=== PATIENT | female | born 1980 | race Caucasian/White ===

== ENCOUNTER 2018-07-15 10:12 | Outpatient (CLI) | payer OTHER, SELFPAY ==
[2018-07-15 10:41] LABS: HCT 41.2 % (36.0-46.0); HGB 13.1 g/dL (12.0-15.5); Mean Corp. HGB Concentration 31.8 g/dL (32.0-36.0); Mean Corpuscular Hemoglobin 28.8 pg (27.0-33.0); Mean Corpuscular Volume 90.5 fL (80-95); Platelet Count 319 x1000/uL (130-400); RBC 4.55 m/cumm (4.00-5.20); RBC Distribution Width 15.2 % (11.7-14.6); White Blood Cell Count 9.25 k/cumm (4.4-10.8)
[2018-07-15 11:28] LABS: Iron 79 ug/dL (50-175)
[2018-07-15 11:54] LABS: Vitamin D 25 Total 59.4 ng/ml (30-100)
[2018-07-15 11:57] LABS: CREATININE 0.94 mg/dL (0.55-1.02); Calcium 8.9 mg/dL (8.5-10.1); Ferritin 37 ng/mL (8-388); Vitamin B12 678 pg/mL (193-986)
[2018-07-16 11:49] LABS: Parathyroid Hormone,Intact 24 pg/ml (19-88)
[2018-07-17 11:11] LABS: Thiamine (Vitamin B1), WB 188 nmol/L (70-180)
== END 2018-07-15 10:32 ==
PROVIDERS: PCP Nurse Practitioner Family; Visit Provider Physician Assistant
DX: Z98.84 Bariatric surgery status (principal); K91.2 Postsurgical malabsorption, not elsewhere classified; E66.9 Obesity, unspecified
CPT/HCPCS: 36415; 82306; 85027; 82310; 82565; 82607; 82728; 83540; 83970; 84425

== ENCOUNTER 2018-10-07 11:03 | Outpatient (CLI) | payer OTHER, SELFPAY ==
--- NOTE | 2018-10-07 11:18 | DI.RAD_ITS ---
SYMPTOM/DIAGNOSIS: COCCYDYNIA, M53.3, TAILBONE PAIN, FELL SACRUM AND COCCYX: Three projections are provided. The history in this patient is coccydynia. The patient is status post recent fall with subsequent pain. There is a nondisplaced fracture involving the distal sacral segment of the sacrum. The coccyx is intact. No other abnormality involving the sacrum is seen. The SI joints are intact. SUMMARY: Distal nondisplaced sacral fracture is likely. This could be further evaluated with CT, NM or MRI if warranted.
== END 2018-10-07 11:23 ==
PROVIDERS: PCP Nurse Practitioner Family; Visit Provider Nurse Practitioner Family
DX: M53.3 Sacrococcygeal disorders, not elsewhere classified (principal); S32.10XA Unspecified fracture of sacrum, initial encounter for closed fracture
CPT/HCPCS: 72220

== ENCOUNTER 2018-10-30 09:02 | Outpatient (CLI) | payer OTHER, SELFPAY ==
[2018-10-30 09:36] LABS: Abs Immature Grans 0.01 k/cumm (0.0-0.09); Absolute Basophil Count 0.03 k/cumm (0.0-0.2); Absolute Lymphocyte Count 2.58 k/cumm (1.2-3.4); Absolute Monocyte Count 0.43 k/cumm (0.11-0.7); Absolute Neutrophil Count 3.34 k/cumm (1.2-6.7); Basophils % 0.5; Eosinophils % 1.5; HCT 39.5 % (36.0-46.0); HGB 13.1 g/dL (12.0-15.5); Immature Grans % 0.2; Lymphocytes % 39.8; Mean Corp. HGB Concentration 33.2 g/dL (32.0-36.0); Mean Corpuscular Hemoglobin 29.4 pg (27.0-33.0); Mean Corpuscular Volume 88.8 fL (80-95); Mean Platelet Volume 9.5 fL (8.0-11.0); Monocytes % 6.6; Neutrophils % 51.4; Platelet Count 296 x1000/uL (130-400); RBC 4.45 m/cumm (4.00-5.20); RBC Distribution Width 13.8 % (11.7-14.6); White Blood Cell Count 6.49 k/cumm (4.4-10.8)
[2018-10-30 10:37] LABS: Iron 94 ug/dL (50-175)
[2018-10-30 11:04] LABS: ALT 15 U/L (12-78); AST 14 U/L (15-37); Albumin 3.3 g/dL (3.4-5.0); Alkaline Phosphatase 80 U/L (46-116); Anion Gap 12.3 mmol/L (3-11); BUN 12 mg/dL (7-18); Bilirubin, Total 0.5 mg/dL (0.2-1.0); CO2 22.7 mmol/L (21.0-32.0); CREATININE 0.88 mg/dL (0.55-1.02); Calcium 9.6 mg/dL (8.5-10.1); Chloride 106 mmol/L (98-107); Ferritin 77 ng/mL (8-388); Glucose 93 mg/dL (70-100); Potassium 4.4 mmol/L (3.5-5.1); Sodium 141 mmol/L (136-145); TSH 1.59 uIU/mL (0.358-3.74); Total Protein 7.2 g/dL (6.4-8.2); Vitamin B12 778 pg/mL (193-986)
[2018-10-30 11:07] LABS: Folate > 20.0 ng/mL (8.6-20.0)
== END 2018-10-30 09:22 ==
PROVIDERS: PCP Nurse Practitioner Family; Visit Provider Nurse Practitioner Family
DX: F31.74 Bipolar disorder, in full remission, most recent episode manic (principal); R53.81 Other malaise; R53.83 Other fatigue; Z98.84 Bariatric surgery status
CPT/HCPCS: 36415; 80053; 82306; 82607; 82728; 82746; 83540; 84443; 85025

== ENCOUNTER 2018-12-15 11:16 | Outpatient (REF) | payer OTHER, SELFPAY ==
[2018-12-15 12:42] LABS: ALT 12 U/L (12-78); AST 9 U/L (15-37); Alkaline Phosphatase 78 U/L (46-116); Anion Gap 7.7 mmol/L (3-11); BUN 18 mg/dL (7-18); Bilirubin, Total 0.2 mg/dL (0.2-1.0); CO2 26.3 mmol/L (21.0-32.0); CREATININE 0.67 mg/dL (0.55-1.02); Calcium 8.8 mg/dL (8.5-10.1); Chloride 105 mmol/L (98-107); Glucose 84 mg/dL (70-100); Potassium 4.5 mmol/L (3.5-5.1); Sodium 139 mmol/L (136-145)
[2018-12-15 13:13] LABS: ESR 37 MM/HR (0-20)
[2018-12-16 13:41] LABS: ANA Interpretation Negative (NEGAT)
[2018-12-16 14:09] LABS: HIV-1/2 Ag & Ab Screen Negative (NEGAT)
== END 2018-12-15 11:36 ==
LOC: NCHCN 11:16
PROVIDERS: Nurse Practitioner Family; PCP Nurse Practitioner Family; Visit Provider Physician Assistant Medical
DX: I95.9 Hypotension, unspecified (principal); Z11.4 Encounter for screening for human immunodeficiency virus [HIV]
CPT/HCPCS: 80053; 85652; 87389; 86038

== ENCOUNTER 2019-02-21 13:50 | Emergency (ER) | payer OTHER, SELFPAY ==
[2019-02-21 13:57] VITALS: BP 95/55; PULSE 60; RESP 16; TEMP 36.7; O2SAT 98
--- NOTE | 2019-02-21 14:50 | DI.RAD_ITS ---
SYMPTOMS/DIAGNOSIS: COUCH FELL ON FOREARM RIGHT ELBOW: No fracture or dislocation is seen. There is no evidence of a joint effusion. There are no degenerative changes visible. IMPRESSION: Negative right elbow. RIGHT WRIST: No fracture or dislocation is seen. There is slight deformity of the distal ulna, which may represent an old fracture deformity. IMPRESSION: No acute abnormality.
--- NOTE | 2019-02-21 14:54 | ED.GENADUL_ITS ---
Discharge Plan Discharge Details Chief Complaint: Orthopedic Primary Care Provider: Savannah Ozuna ED Provider: Valerio Clemente Home Meds and New Rx's Prescriptions: No Action ibuprofen 800 mg tablet 800 mg PO PRN RF: 0 acetylcysteine 600 mg capsule 1,200 mg PO PRN RF: 0 calcium carbonate-vitamin D3 500 mg(1,250mg) -400 unit tablet 1 tab PO BID RF: 0 magnesium 250 mg tablet 250 mg PO DAILY RF: 0 Aimovig Autoinjector 70 mg/mL auto-injector 70 mg SC QMONTH Qty: 1 RF: 2 prochlorperazine maleate 5 mg tablet 5 mg PO Q8H PRN (Reason: headaches, nausea) Qty: 30 RF: 3 fluoxetine [Prozac] 20 mg capsule 20 mg PO DAILY RF: 0 multivitamin tablet 1 tab PO DAILY RF: 0 norgestimate-ethinyl estradiol 0.25-35 mg-mcg tablet 1 tab PO DAILY RF: 0 cholecalciferol (vitamin D3) 2,000 unit tablet 2,000 unit PO DAILY RF: 0 vitamin B complex [B Complex 1] tablet 1 tab PO DAILY RF: 0 lamotrigine [Lamictal] 200 mg tablet 400 mg PO DAILY RF: 0 omega-3 fatty acids capsule 1,000 mg PO DAILY RF: 0 propranolol [Inderal LA] 60 mg capsule,extended release 24 hr 240 mg PO DAILY RF: 0 clonazepam 1 MG tablet 0.5 mg PO .HS PRN RF: 0 venlafaxine 150 MG capsule,extended release 24hr 150 mg PO DAILY RF: 0 topiramate 100 MG tablet 100 mg PO HS RF: 0 omeprazole 20 MG tablet,delayed release (DR/EC) 20 mg PO DAILY RF: 0 zolpidem [Ambien CR] 12.5 mg tablet,ext release multiphase 10 mg PO HS RF: 0 acetaminophen-codeine [Tylenol-Codeine #3] 1 TAB tablet 1 ea PO Q4H Qty: 7 RF: 0 Medical Decision Making 38-year-old female with arm trauma couch fell onto wrist and forearm was stuck briefly and then pulled out no evidence of soft tissue swelling x-rays interpreted by me negative for fracture /dislocation. Suspect contusion versus mild sprain but due to scaphoid tenderness will place patient in thumb spica patient to follow with orthopedics and primary care. Acetaminophen for pain. HPI 38-year-old female with right arm pain after pullout couch fell onto it patient with arm was tried briefly and she was able to pull it out. Full range of motion but diffuse pain from elbow to wrist. No other injuries no shortness of breath chest pain head injury loss of consciousness weight loss weight gain or other complaint. Patient past medical history of migraine headaches mood disorder on Lamictal. Patient states her blood pressure is normally low. No dizziness no loss of consciousness. General Date/Time Provider Initiated Documentation: 02/21/19 14:37 . Related Data Home Medications Medication Instructions Recorded Confirmed clonazepam 0.5 mg PO .HS PRN 12/24/13 02/14/19 omeprazole 20 mg PO DAILY 12/24/13 02/14/19 topiramate 100 mg PO HS 12/24/13 02/14/19 venlafaxine 150 mg PO DAILY 12/24/13 02/14/19 acetaminophen-codeine [Tylenol 1 ea PO Q4H #7 tab 08/10/14 02/14/19 W/Codeine #3 Tablet] cholecalciferol (vitamin D3) 2,000 2,000 unit PO DAILY 01/12/19 02/14/19 unit tablet fluoxetine 20 mg capsule 20 mg PO DAILY 01/12/19 02/14/19 multivitamin tablet 1 tab PO DAILY 01/12/19 02/14/19 norgestimate 0.25 mg-ethinyl 1 tab PO DAILY 01/12/19 02/14/19 estradiol 35 mcg tablet vitamin B complex tablet 1 tab PO DAILY 01/12/19 02/14/19 acetylcysteine 600 mg capsule 1,200 mg PO PRN cap 02/14/19 02/14/19 calcium carbonate 500 mg (1,250 1 tab PO BID 02/14/19 02/14/19 mg)-vitamin D3 400 unit tablet erenumab-aooe 70 mg/mL 70 mg SC QMONTH #1 each 02/14/19 02/14/19 subcutaneous auto-injector ibuprofen 800 mg tablet 800 mg PO PRN tab 02/14/19 02/14/19 lamotrigine 200 mg tablet 400 mg PO DAILY tab 02/14/19 02/14/19 magnesium 250 mg tablet 250 mg PO DAILY 05/06/19 05/06/19 omega-3 fatty acids capsule 1,000 mg PO DAILY cap 02/14/19 02/14/19 prochlorperazine maleate 5 mg 5 mg PO Q8H PRN #30 tab 02/14/19 02/14/19 tablet propranolol ER 60 mg capsule,24 240 mg PO DAILY cap 02/14/19 02/14/19 hr,extended release zolpidem ER 12.5 mg 10 mg PO HS tab 02/14/19 02/14/19 tablet,extended release,multiphase Previous Rx's Medication Instructions Recorded acetaminophen-codeine [Tylenol 1 ea PO Q4H #7 tab 08/10/14 W/Codeine #3 Tablet] erenumab-aooe 70 mg/mL 70 mg SC QMONTH #1 each 02/14/19 subcutaneous auto-injector prochlorperazine maleate 5 mg 5 mg PO Q8H PRN #30 tab 02/14/19 tablet Allergies Allergy/AdvReac Type Severity Reaction Status Date / Time Penicillins Allergy Intermediate Hives Unverified 02/14/19 09:26 aripiprazole [From Abilify] Allergy Verified 02/14/19 09:26 General Stated Complaint: Orthopedic BENIGNO: 4 Review of Systems Review of Systems All systems reviewed & are unremarkable except as noted in HPI and below PFSH Social History Smoking/Tobacco Use Status: Current every day Alcohol Intake: never Drug use: Never Exam Narrative Exam Narrative: Pulse oximetry reviewed by me and is normal [] Constitutional: Pt is in no acute distress. she is well appearing. she oriented to person, place, and time. Eyes: conjunctivae are normal. Pupils are equal, round, and reactive to light. No scleral icterus. extraocular muscles are intact Ears/Nose/Mouth/Throat: mucus membranes are moist. Musculoskeletal: neck is supple. normal range of motion in all extremities. Right arm with moderate diffuse tenderness from elbow to wrist positive scaphoid tenderness no crepitus no deformity full range of motion normal neurovascular exam Cardiovascular: Normal rate and rhythm. No lower extremity edema [] Respiratory: effort is normal . pt exhibits no stridor or respiratory distress. [] GastrointestinaI: abdomen soft, +BS, nontender, -rebound, -guarding. Neurological: alert and oriented to person, place, and time. he has normal strength, no tremor. Skin: Skin is warm and dry. he is not diaphoretic. Distal perfusion in tact, warm extremities, cap refill ? 2 seconds. Hem/Lymph/Imm: No cervical LAD, no goiter, no conjunctival pallor Psych: normal mood and affect. behavior is normal Triage and nurse notes reviewed.[] Course Vital Signs Temperature 36.7 C 02/21/19 13:57 Pulse 60 02/21/19 13:57 Respiratory Rate 16 02/21/19 13:57 Blood Pressure 95/55 L 02/21/19 13:57 Pulse Oximetry 98 02/21/19 13:57 Temperature 36.7 C 02/21/19 13:57 Temperature Source Skin 02/21/19 13:57 Pulse 60 02/21/19 13:57 Respiratory Rate 16 02/21/19 13:57 Blood Pressure 95/55 L 02/21/19 13:57 Blood Pressure Position Sitting 02/21/19 13:57 Pulse Oximetry 98 02/21/19 13:57 Pain Level 6 02/21/19 13:57
[2019-02-21 16:06] VITALS: BP 95/55; PULSE 60; RESP 16; TEMP 36.7; O2SAT 98
== END 2019-02-21 16:20 | disposition home or self-care (01) ==
PROVIDERS: Emergency Provider Emergency Medicine; PCP Nurse Practitioner Family
DX: S50.11XA Contusion of right forearm, initial encounter (principal); S50.01XA Contusion of right elbow, initial encounter; S62.001A Unspecified fracture of navicular [scaphoid] bone of right wrist, initial encounter for closed fracture; W20.8XXA Other cause of strike by thrown, projected or falling object, initial encounter
CPT/HCPCS: 25622; 99284; 73080; 73110; 99281

== ENCOUNTER 2019-03-09 11:34 | Outpatient (REF) | payer OTHER, SELFPAY ==
[2019-03-09 22:33] LABS: HCT 40.3 % (36.0-46.0); HGB 13.1 g/dL (12.0-15.5); Mean Corp. HGB Concentration 32.5 g/dL (32.0-36.0); Mean Corpuscular Hemoglobin 29.7 pg (27.0-33.0); Mean Corpuscular Volume 91.4 fL (80-95); Platelet Count 346 x1000/uL (130-400); RBC 4.41 m/cumm (4.00-5.20); RBC Distribution Width 13.3 % (11.7-14.6); White Blood Cell Count 7.02 k/cumm (4.4-10.8)
[2019-03-09 22:56] LABS: Mono Screening Negative (Negative)
== END 2019-03-09 11:54 ==
LOC: NCHCN 11:34
PROVIDERS: PCP Nurse Practitioner Family; Visit Provider Family Medicine
DX: R53.83 Other fatigue (principal)
CPT/HCPCS: 85027; 86308

== ENCOUNTER 2019-03-15 09:56 | Outpatient (REF) | payer OTHER, SELFPAY ==
[2019-03-16 11:29] LABS: Lyme Ab w Rflx to Lyme Confirm Negative
[2019-03-17 21:05] LABS: Anaplasma phagocytophilum Negative (Negative); B. miyamotoi PCR Negative (Negative); Babesia divergens/MO-1 Negative (Negative); Babesia duncani Negative (Negative); Babesia microti Negative (Negative); Ehrlichia chaffeensis Negative (Negative); Ehrlichia ewingii/canis Negative (Negative); Ehrlichia muris eauclairensis Negative (Negative)
== END 2019-03-15 10:16 ==
LOC: NCHCN 09:56
PROVIDERS: PCP Nurse Practitioner Family; Visit Provider Specialist/Technologist Athletic Trainer
DX: R53.83 Other fatigue (principal)
CPT/HCPCS: 86618; 87798

== ENCOUNTER 2019-08-22 07:08 | Emergency (ER) | payer OTHER, SELFPAY ==
[2019-08-22 07:20] VITALS: BP 104/69; PULSE 60; RESP 16; TEMP 36.5; O2SAT 100
[2019-08-22 07:28] LABS: Bilirubin Negative (Negative); Blood Trace-intact (Negative); Clarity Sl Cloudy (Clear); Glucose Negative (Negative); Ketones Negative (Negative); Leukocyte Esterase Negative (Negative); Nitrite Negative (Negative); Urobilinogen 0.2 EU/dL (Up TO 0.2)
[2019-08-22 07:37] LABS: Bacteria Moderate HPF (Negative); C & S Indicated? No/Sq. Contamination; Epithelial Cells Many HPF (Negative)
[2019-08-22 07:49] LABS: Absolute Basophil Count 0.05 k/cumm (0.0-0.2); Absolute Eosinophil Count 0.19 k/cumm (0.0-0.7); Absolute Lymphocyte Count 2.38 k/cumm (1.2-3.4); Absolute Monocyte Count 0.55 k/cumm (0.11-0.7); Absolute Neutrophil Count 3.73 k/cumm (1.2-6.7); Basophils % 0.7; Eosinophils % 2.8; HCT 42.4 % (36.0-46.0); HGB 13.6 g/dL (12.0-15.5); Lymphocytes % 34.5; Mean Corp. HGB Concentration 32.1 g/dL (32.0-36.0); Mean Corpuscular Hemoglobin 29.8 pg (27.0-33.0); Mean Corpuscular Volume 92.8 fL (80-95); Mean Platelet Volume 8.6 fL (8.0-11.0); Platelet Count 368 x1000/uL (130-400); RBC 4.57 m/cumm (4.00-5.20); RBC Distribution Width 14.3 % (11.7-14.6)
--- NOTE | 2019-08-22 07:50 | ED.GENADUL_ITS ---
Discharge Plan Disposition Patient Disposition: HOME Condition: Stable Discharge Details Chief Complaint: Abd Prob Clinical Impression: Cholelithiasis, Abdominal pain Primary Care Provider: Savannah Ozuna ED Provider: Dian Cohn Home Meds and New Rx's Prescriptions: Continued ibuprofen 800 mg tablet 800 mg PO PRN RF: 0 acetylcysteine 600 mg capsule 1,200 mg PO PRN RF: 0 calcium carbonate-vitamin D3 500 mg(1,250mg) -400 unit tablet 1 tab PO BID RF: 0 magnesium 250 mg tablet 250 mg PO DAILY RF: 0 rizatriptan [Maxalt] 10 mg tablet 10 mg PO ONCE Qty: 10 RF: 3 fluoxetine [Prozac] 20 mg capsule 20 mg PO DAILY RF: 0 multivitamin tablet 1 tab PO DAILY RF: 0 cholecalciferol (vitamin D3) 2,000 unit tablet 2,000 unit PO DAILY RF: 0 vitamin B complex [B Complex 1] tablet 1 tab PO DAILY RF: 0 lamotrigine [Lamictal] 200 mg tablet 400 mg PO DAILY RF: 0 omega-3 fatty acids capsule 1,000 mg PO DAILY RF: 0 propranolol [Inderal LA] 60 mg capsule,extended release 24 hr 120 mg PO DAILY RF: 0 clonazepam 1 MG tablet 0.5 mg PO .HS PRN RF: 0 omeprazole 20 MG tablet,delayed release (DR/EC) 40 mg PO DAILY RF: 0 zolpidem [Ambien CR] 12.5 mg tablet,ext release multiphase 12.5 mg PO HS RF: 0 topiramate 100 mg tablet 50 mg PO HS RF: 0 naproxen 250 mg tablet 250 mg PO BID PRN (Reason: pain) Qty: 20 RF: 0 topiramate [Topamax] 50 mg Tablet 50 mg PO DAILY RF: 0 Discharge Instructions Instructions: Gallstones (ED), Abdominal Pain (ED) Additional Instructions: Please return immediately to the emergency department if you develop any new or worsening symptoms or if you become otherwise concerned. It is extremely important that you attend your scheduled appointment with Dr. Espinal of surgery on August 25 at 8:30 AM as scheduled, and also that you call as soon as possible to schedule an appointment to be seen in follow-up for this visit by your primary care doctor. Referrals: Savannah Ozuna [Primary Care Provider] - Maria Del Carmen Espinal MD [ [facility] STAFF PHYSICIAN] - Medical Decision Making Lyndsey Mcclure is a 38-year-old woman with a history of bipolar disorder, migraine, GERD, hypertension, status post gastric sleeve procedure 1 year ago who presented to the emergency department with several months of right upper quadrant pain worsening over the past 2 weeks, no modifiers. On exam patient is very well and nontoxic appearing. Abdomen is soft, tenderness right upper quadrant and epigastrium greater than right lower quadrant, no peritoneal signs. Concern for biliary disease, gastric sleeve complication, pancreatitis, gastritis, other. Very low suspicion for pulmonary embolism as etiology of pain, patient is PERC negative. Exam/history is not consistent with acute coronary syndrome, sepsis, mesenteric ischemia, acute aortic pathology. Plan for screening labs, EKG, IV placement, CT abdomen/pelvis. Labs nondiagnostic, CT shows gallstones without cholecystitis. Plan for ultrasound. EKG shows bradycardia, low voltage. No prior for comparison. On record review patient was seen here in the past for orthopedic injury with heart rate of 60. Patient is asymptomatic with normal blood pressure. Ultrasound shows gallstones without evidence of cholecystitis. I discussed patient presentation and results with Dr. Pillai of surgery, plan for outpatient follow-up 08/25 8:30 AM. I had a lengthy discussion with the patient regarding return to emergency department precautions, home care, and importance of outpatient follow-up with surgery as scheduled and also with her PCP. Patient verbalized understanding of the plan and was amenable. All questions were answered. Patient was discharged home with clear plan for outpatient follow-up. Medical Records Medical records reviewed: Yes I reviewed the patient's medical records. Imaging Data Radiologic Study: Attestation: I personally reviewed and interpreted this imaging study as follows: Radiologist's impression: EXAM: CT ABDOMEN PELVIS W CLINICAL HISTORY: RUQ pain,VOMITING TECHNIQUE: Imaging Protocol: Axial computed tomography images with coronal and sagittal reformatted images were created and reviewed CONTRAST MATERIAL: Intravenous: Omnipaque 350 Contrast volume:100 mL contrast route:IV - Oral: No COMPARISON: No exams were available for comparison FINDINGS: ABDOMEN: Lung Bases: Mild dependent atelectasis. Liver: Normal density. No measurable mass. The superior mesenteric, portal and splenic veins are patent. Gallbladder and biliary tract: Stones are present. There is no biliary ductal dilatation. Pancreas: Normal density, no abnormal calcifications or inflammatory process. Spleen: Normal. Kidneys: Normal size, contour and axis. No radiodense stones or obstructive uropathy. No masses seen. Adrenal glands: No masses seen. Abdominal Aorta: Abdominal portion non-dilated. PELVIS: Bladder: Symmetric distention, no gross wall thickening. Bowel: No obstruction or bowel wall thickening. The appendix is normal in size without evidence of adjacent mesenteric fat stranding or adjacent fluid collection. Postsurgical changes are seen in the stomach. Peritoneal cavity: No ascites, collection or mesenteric inflammatory response. Bones: Within normal limits. Reproductive organs: Within normal limits. Lymph nodes: Unremarkable. Impression: Cholelithiasis. No biliary ductal dilatation. The findings were discussed with the emergency department on the date of the examination. EXAM: US ABDOMEN LIMITED CLINICAL HISTORY: RUQ pain, gallstones on CT TECHNIQUE: Ultrasound performed using standard protocol. COMPARISON: CT ABDOMEN PELVIS W from 08/22/2019 FINDINGS: There are multiple stones seen within the gallbladder. No gallbladder wall thickening or pericholecystic fluid is present. There is a positive sonographic Colon sign. The common duct is within normal limits at 2.9 mm. IMPRESSION: Cholelithiasis. No sonographic evidence of acute cholecystitis. Lab Data Lab results reviewed: Yes I reviewed the patient's lab results. Labs: Laboratory Tests Range/Units 08/22/19 08/22/19 08/22/19 07:10 07:45 07:45 WBC (4.4-10.8) k/cumm 6.90 RBC (4.00-5.20) m/cumm 4.57 Hgb (12.0-15.5) g/dL 13.6 Hct (36.0-46.0) % 42.4 MCV (80-95) fL 92.8 MCH (27.0-33.0) pg 29.8 MCHC (32.0-36.0) g/dL 32.1 RDW (11.7-14.6) % 14.3 Plt Count (130-400) x1000/uL 368 MPV (8.0-11.0) fL 8.6 Immature Gran % 0.0 Neutrophils % 54.0 Lymphocytes % 34.5 Monocytes % 8.0 Eosinophils % 2.8 Basophils % 0.7 Absolute Neutrophils (1.2-6.7) k/cumm 3.73 Absolute Lymphocytes (1.2-3.4) k/cumm 2.38 Absolute Monocytes (0.11-0.7) k/cumm 0.55 Absolute Eosinophils (0.0-0.7) k/cumm 0.19 Absolute Basophils (0.0-0.2) k/cumm 0.05 Sodium (136-145) mmol/L 141 Potassium (3.5-5.1) mmol/L 3.9 Chloride (98-107) mmol/L 107 Carbon Dioxide (21.0-32.0) mmol/L 24.9 Anion Gap (3-11) mmol/L 9.1 BUN (7-18) mg/dL 19 H Creatinine (0.55-1.02) mg/dL 0.82 Estimated GFR/1.73 m2 (mL/min/1.73m2) >= 60.00 Glucose (70-100) mg/dL 93 Calcium (8.5-10.1) mg/dL 8.6 Total Bilirubin (0.2-1.0) mg/dL 0.4 AST (15-37) U/L 13 L ALT (14-59) U/L 21 Alkaline Phosphatase (46-116) U/L 76 Total Protein (6.4-8.2) g/dL 7.5 Albumin (3.4-5.0) g/dL 3.5 Lipase (73-393) U/L 59 L Urine Color (Yellow) Yellow Urine Clarity (Clear) Sl cloudy Urine pH (5-8) 7.0 Ur Specific [place] (1.005-1.025) 1.020 Urine Protein (Negative) mg/dL Trace H Urine Ketones (Negative) mg/dL Negative Urine Blood (Negative) Trace-intact H Urine Nitrite (Negative) Negative Urine Bilirubin (Negative) Negative Urine Urobilinogen (Up TO 0.2) EU/dL 0.2 Ur Leukocyte Esterase (Negative) Negative Urine RBC Not Applicable Urine WBC Not Applicable Ur Epithelial Cells (Negative) HPF Many Urine Crystals Not Applicable Urine Bacteria (Negative) HPF Moderate Urine Mucus Not Applicable Ur Culture Indicated? No/sq. contamination Urine Glucose (Negative) mg/dL Negative ECG Data Attestation: I personally reviewed and interpreted this ECG (s) as follows: Interpretation: EKG shows sinus bradycardia at 49, normal axis, no acute ischemic changes, no prior for comparison, nondiagnostic EKG HPI General Mode of arrival: ambulatory . Date/Time Provider Initiated Documentation: 08/22/19 07:13 . Limitations to Documentation: no limitations . Information obtained by: patient, RN notes reviewed and old records reviewed . HPI Narrative: Lyndsey Mcclure is a 38-year-old woman with history of bipolar disorder, chronic migraine, GERD, hypertension, status post gastric sleeve 1 year ago presenting to the emergency department with abdominal pain. Patient reports that she has had several months of intermittent right upper quadrant pain. She reports that pain has become more constant and more severe, and on 08/11/2019 she saw urgent care for this issue. She did not have imaging at that time and no diagnosis made. Patient reports that pain has continued to worsen since that visit. Patient reports the pain is in the right upper quadrant, and sharp, sometimes burning, last for minutes to hours at a time. Patient reports pain seems mostly unchanged by eating. No known modifiers. Nonpleuritic, non- positional, nonexertional. Over the past 2 weeks patient has had intermittent diarrhea and constipation, with diarrhea in the past few days. Patient also reports that she has had significant nausea without vomiting. Patient reports gastric sleeve procedure 1 year ago without complications to date. Has been eating and drinking as usual. No recent travel or periods of immobilization, no personal or first-degree family history of blood clot. Denies any other pain, fevers. Related Data Home Medications Medication Instructions Recorded Confirmed clonazepam 0.5 mg PO .HS PRN 12/24/13 08/22/19 omeprazole 40 mg PO DAILY 12/24/13 08/22/19 cholecalciferol (vitamin D3) 2,000 2,000 unit PO DAILY 01/12/19 08/22/19 unit tablet fluoxetine 20 mg capsule 20 mg PO DAILY 01/12/19 08/22/19 multivitamin 1 tab PO DAILY 01/12/19 08/22/19 vitamin B complex 1 tab PO DAILY 01/12/19 08/22/19 acetylcysteine 600 mg capsule 1,200 mg PO PRN cap 02/14/19 08/22/19 calcium carbonate 500 mg (1,250 1 tab PO BID 02/14/19 08/22/19 mg)-vitamin D3 400 unit tablet ibuprofen 800 mg tablet 800 mg PO PRN tab 02/14/19 08/22/19 lamotrigine 200 mg tablet 400 mg PO DAILY tab 02/14/19 08/22/19 magnesium 250 mg tablet 250 mg PO DAILY 02/14/19 08/22/19 omega-3 fatty acids 1,000 mg PO DAILY cap 02/14/19 08/22/19 zolpidem 12.5 mg tablet,extended 12.5 mg PO HS tab 02/14/19 08/22/19 release,multiphase naproxen 250 mg PO BID PRN #20 tab 02/21/19 08/02/19 propranolol 60 mg capsule,24 120 mg PO DAILY cap 04/06/19 08/22/19 hr,extended release topiramate 100 mg tablet 50 mg PO HS tab 04/06/19 08/22/19 rizatriptan 10 mg tablet 10 mg PO ONCE #10 tab 08/02/19 08/22/19 topiramate [Topamax] 50 mg PO DAILY 08/22/19 08/22/19 Previous Rx's Medication Instructions Recorded naproxen 250 mg PO BID PRN #20 tab 02/21/19 rizatriptan 10 mg tablet 10 mg PO ONCE #10 tab 08/02/19 Allergies Allergy/AdvReac Type Severity Reaction Status Date / Time Penicillins Allergy Intermediate Hives Unverified 08/22/19 07:24 aripiprazole [From Abiliy] Allergy Verified 08/22/19 07:24 General Stated Complaint: Abd Prob BENIGNO: 3 Review of Systems Narrative: Constitutional: denies fevers Eyes: denies eye pain ENT: denies facial pain, dental pain, sore throat Cardiovascular: denies chest pain, edema Respiratory: denies SOB, cough GI: denies vomiting, reports abdominal pain, intermittent constipation and diarrhea : denies flank pain MSK: denies back pain, neck pain, arthralgias, myalgias Skin: denies rash Neuro: denies headaches, numbness, weakness [facility] Medical History Acne (Acute) Bipolar disorder (Acute) Chronic GERD (Acute) Coccydynia (Acute) Depression (Chronic) Dyshidrotic eczema (Acute) Eczema (Acute) Fatigue (Acute) Headache, chronic migraine without aura (Acute) History of meningitis (Acute) Hypotension (Acute) Irregular periods (Acute) Low back pain (Acute) Menorrhagia (Acute) Nausea & vomiting (Acute) Obesity (Chronic) Onychomycosis (Acute) MAYKEL (obstructive sleep apnea) (Chronic) TMJ (temporomandibular joint syndrome) (Acute) Surgical History (Updated 08/02/19 @ 09:32 by Mayte Jacques) H/O tubal ligation (Chronic) Hx of bariatric surgery (Acute) Social History Smoking/Tobacco Use Status: Current every day Alcohol Intake: never Drug use: Never Do you feel safe at home: Yes Do you feel safe in your relationship?: Yes Exam Narrative Exam Narrative: Constitutional: well and [id number], pleasant, conversing normally HENT: head atraumatic/normocephalic/normal inspection, mucous membranes moist Eyes: conjunctiva normal, sclera normal, pupils 3mm b/l Neck: no stridor, normal ROM, trachea midline Chest: normal inspection, no right-sided rib tenderness to palpation Resp: normal work of breathing, LCTAB Cardio: normal rate, normal rhythm, no murmur appreciated GI: abdomen soft, tender right upper quadrant and epigastric area without f ocality, also mildly tender right lower quadrant, no rebound, no guarding, positive Colon sign, negative McBurney's point tenderness to palpation, non- distended Skin: warm, dry, normal color, no rash Neuro: alert, not altered, grossly non-focal, normal tone Ext: no edema, no posterior calf tenderness to palpation Psych: normal mood, normal affect, normal behavior Course Vital Signs Vital signs: Vital Signs Temperature 36.5 C 08/22/19 07:20 Pulse 60 08/22/19 07:20 Respiratory Rate 16 08/22/19 07:20 Blood Pressure 104/69 08/22/19 07:20 Pulse Oximetry 100 08/22/19 07:20 Temperature 36.5 C 08/22/19 07:20 Temperature Source Skin 08/22/19 07:20 Pulse 60 08/22/19 07:20 Respiratory Rate 16 08/22/19 07:20 Respiratory Effort Non-Labored 08/22/19 07:20 Blood Pressure 104/69 08/22/19 07:20 Blood Pressure Position Sitting 08/22/19 07:20 Pulse Oximetry 100 08/22/19 07:20 Oxygen Delivery Method Room Air 08/22/19 07:20 Oxygen Flow Rate 0 08/22/19 07:20 Pain Level 4 08/22/19 07:20 Lab/Test Results Lab/Test Results: Laboratory Tests Range/Units 08/22/19 07:10 Urine Color (Yellow) Yellow Urine Clarity (Clear) Sl cloudy Urine pH (5-8) 7.0 Ur Specific [place] (1.005-1.025) 1.020 Urine Protein (Negative) mg/dL Trace H Urine Ketones (Negative) mg/dL Negative Urine Blood (Negative) Trace-intact H Urine Nitrite (Negative) Negative Urine Bilirubin (Negative) Negative Urine Urobilinogen (Up TO 0.2) EU/dL 0.2 Ur Leukocyte Esterase (Negative) Negative Urine RBC Not Applicable Urine WBC Not Applicable Ur Epithelial Cells (Negative) HPF Many Urine Crystals Not Applicable Urine Bacteria (Negative) HPF Moderate Urine Mucus Not Applicable Ur Culture Indicated? No/sq. contamination Urine Glucose (Negative) mg/dL Negative
[2019-08-22 08:03] LABS: ALT 21 U/L (14-59); AST 13 U/L (15-37); Albumin 3.5 g/dL (3.4-5.0); Alkaline Phosphatase 76 U/L (46-116); Anion Gap 9.1 mmol/L (3-11); BUN 19 mg/dL (7-18); Bilirubin, Total 0.4 mg/dL (0.2-1.0); CO2 24.9 mmol/L (21.0-32.0); CREATININE 0.82 mg/dL (0.55-1.02); Calcium 8.6 mg/dL (8.5-10.1); Chloride 107 mmol/L (98-107); Glucose 93 mg/dL (70-100); Lipase 59 U/L (73-393); Potassium 3.9 mmol/L (3.5-5.1); Sodium 141 mmol/L (136-145); Total Protein 7.5 g/dL (6.4-8.2)
--- NOTE | 2019-08-22 08:39 | DI.CT_ITS ---
EXAM: CT ABDOMEN PELVIS W CLINICAL HISTORY: RUQ pain,VOMITING TECHNIQUE: Imaging Protocol: Axial computed tomography images with coronal and sagittal reformatted images were created and reviewed CONTRAST MATERIAL: Intravenous: Omnipaque 350 Contrast volume:100 mL contrast route:IV - Oral: No COMPARISON: No exams were available for comparison FINDINGS: ABDOMEN: Lung Bases: Mild dependent atelectasis. Liver: Normal density. No measurable mass. The superior mesenteric, portal and splenic veins are cook nt. Gallbladder and biliary tract: Stones are present. There is no biliary ductal dilatation. Pancreas: Normal density, no abnormal calcifications or inflammatory process. Spleen: Normal. Kidneys: Normal size, contour and axis. No radiodense stones or obstructive uropathy. No masses seen. Adrenal glands: No masses seen. Abdominal Aorta: Abdominal portion non-dilated. PELVIS: Bladder: Symmetric distention, no gross wall thickening. Bowel: No obstruction or bowel wall thickening. The appendix is normal in size without evidence of ad jacent mesenteric fat stranding or adjacent fluid collection. Postsurgical changes are seen in the s tomach. Peritoneal cavity: No ascites, collection or mesenteric inflammatory response. Bones: Within normal limits. Reproductive organs: Within normal limits. Lymph nodes: Unremarkable. Impression: Cholelithiasis. No biliary ductal dilatation. The findings were discussed with the emergency department on the date of the examination. DATA REPOSITORY: All CT scans at this facility are submitted to the National Radiology Data Registry (NRDR) Dose Index Registry (DIR) with the [employer] (A[employer]). RADIATION OPTIMIZATION: All CT scans at this facility use at least one of these dose optimization te chniques: automated exposure control; mA and/or kV adjustment per patient size (includes targeted exa ms where dose is matched to clinical indication); or iterative reconstruction.
[2019-08-22 09:22] VITALS: BP 102/61; PULSE 50; RESP 18; TEMP 36.7; O2SAT 96
[2019-08-22] MEDS: Omnipaque 350 MG/ML 100 ML BTL IV (09:28)
--- NOTE | 2019-08-22 10:12 | DI.US_ITS ---
EXAM: US ABDOMEN LIMITED CLINICAL HISTORY: RUQ pain, gallstones on CT TECHNIQUE: Ultrasound performed using standard protocol. COMPARISON: CT ABDOMEN PELVIS W from 08/22/2019 FINDINGS: There are multiple stones seen within the gallbladder. No gallbladder wall thickening or pericholecy stic fluid is present. There is a positive sonographic Colon sign. The common duct is within yoselin l limits at 2.9 mm. IMPRESSION: Cholelithiasis. No sonographic evidence of acute cholecystitis.
[2019-08-22 11:19] VITALS: BP 103/61; PULSE 50; RESP 18; TEMP 36.5
[2019-08-22 11:30] VITALS: BP 103/61; PULSE 50; RESP 18; TEMP 36.5; O2SAT 97
== END 2019-08-22 11:10 | disposition home or self-care (01) ==
PROVIDERS: Student in an Organized Health Care Education/Training Program; Emergency Provider Student in an Organized Health Care Education/Training Program; PCP Nurse Practitioner Family
DX: K80.20 Calculus of gallbladder without cholecystitis without obstruction (principal); R10.11 Right upper quadrant pain; I10 Essential (primary) hypertension
CPT/HCPCS: 36415; 80053; 83690; 93005; 99285; 74177; 76705; 81003; 81015; 85025; 93010; J3490

== ENCOUNTER 2019-08-30 07:26 | Day surgery (SDC) | payer OTHER, SELFPAY ==
[2019-08-30] VITALS (9 sets, daily range): BP systolic 82–109; BP diastolic 30–72; PULSE 59–76; RESP 14–18; TEMP 36–36.7; O2SAT 94–98
[2019-08-30] MEDS: Lactated Ringers 1,000 ML 80 ML IV (08:14)
[2019-08-30] MEDS: Acetaminophen 500 MG TAB 1000 MG PO (08:18)
--- NOTE | 2019-08-30 08:47 | W.PM.DSUDISC ---
Discharge Plan Disposition Patient Disposition: HOME Condition: Good Discharge Details Reason For Visit: Laparoscopic cholecystectomy Attending Provider: Maria Del Carmen Espinal Primary Care Provider: Savannah Ozuna Home Meds and New Rx's Prescriptions: New hydrocodone-acetaminophen 5-325 mg tablet 1 - 2 tab PO Q6H PRN (Reason: pain) Qty: 20 RF: 0 Continued acetylcysteine 600 mg capsule 1,200 mg PO PRN RF: 0 calcium carbonate-vitamin D3 500 mg(1,250mg) -400 unit tablet 1 tab PO BID RF: 0 magnesium 250 mg tablet 250 mg PO DAILY RF: 0 rizatriptan [Maxalt] 10 mg tablet 10 mg PO ONCE Qty: 10 RF: 3 Botox 100 unit recon soln 200 unit IM ONCE RF: 0 fluoxetine [Prozac] 20 mg capsule 20 mg PO DAILY RF: 0 multivitamin tablet 1 tab PO DAILY RF: 0 cholecalciferol (vitamin D3) 2,000 unit tablet 2,000 unit PO DAILY RF: 0 vitamin B complex [B Complex 1] tablet 1 tab PO DAILY RF: 0 lamotrigine [Lamictal] 200 mg tablet 400 mg PO DAILY RF: 0 omega-3 fatty acids capsule 1,000 mg PO DAILY RF: 0 propranolol [Inderal LA] 60 mg capsule,extended release 24 hr 120 mg PO DAILY RF: 0 clonazepam 1 MG tablet 0.5 mg PO .HS PRN RF: 0 omeprazole 20 MG tablet,delayed release (DR/EC) 40 mg PO DAILY RF: 0 zolpidem [Ambien CR] 12.5 mg tablet,ext release multiphase 12.5 mg PO HS RF: 0 topiramate 100 mg tablet 50 mg PO HS RF: 0 naproxen 250 mg tablet 250 mg PO BID PRN (Reason: pain) Qty: 20 RF: 0 Discharge Instructions Additional Instructions: The top bandage can be removed tomorrow. The steri strips will usually stick for about a week. When the edges start to curl up, they can be removed. It is okay to shower tomorrow, the water can run over the steri strips Do not swim or soak in a tub for two weeks Call for any concerns including fever, increased pain, vomiting, incision redness or drainage. Do not lift more than 15 pounds for two weeks. Walking and stairs are fine. Do not drive if on narcotic pain meds or if limited by pain. Do not take narcotics at the same time as sedatives (Ambien/clonazepam) May use Tylenol alternating with ibuprofen for pain control. Ice is also an option. The maximum dose for Tylenol is 4000 mg/day. May use ibuprofen 800 mg every 8 hours as needed. If concerned about constipation, you may use a stool softener or milk of magnesia. Referrals: Maria Del Carmen Espinal MD [ [facility]FF [facility]YSICIAN] - (Return in 10- 14 days for a postop visit) Activity:: Do not lift more than 15# for two weeks postop Remove Dressings/Wound Care:: 24 hours Shower/Bathe:: 24 hours Diet:: Low fat for two weeks Discharge Orders Discharge Orders: Discharge Order (Routine); Ordered 08/30/19 Ordered By: Maria Del Carmen Espinal DS: Diagnosis Discharge Diagnosis (1) Cholelithiasis: Status: Acute
[2019-08-30] MEDS: CLINDAMYCIN 900 MG/50 ML BAG 50 MG IVPB (08:55)
--- NOTE | 2019-08-30 09:50 | GB_PTH ---
PATIENT: Lyndsey Mcclure LOC: [facility] U#:[id number] AGE/SX: 38/F ROOM: RE08/30/[address]: Maria Del Carmen Espinal MD : 1980 BED: DIS: 08/30/2019 SPEC #: [id number] RECD: 08/30/19 12:36 STATUS: AVA REQ #: [id number] SHASTA: 08/30/19 09:[address]: Maria Del Carmen Espinal DEPT: Surgical Specimen RECD BY: Opal Fay ENTERED: 08/30/19 12:37 SP TYPE: GB OTHR DR: Savannah Ozuna Tissues: 1 - GALLBLADDER Procedures: GROSS AND MICRO LEVEL 3 Comments: [id number]
[2019-08-30] MEDS: Bupivacaine 0.5% Pres-Free 30 ML VIAL (09:59)
[2019-08-30] MEDS: Normal Saline Flush 10 ML SYR IV (10:34)
[2019-08-30] MEDS: HYDROmorphone 2 MG/ML VIAL IVP ×2 (10:35→10:59)
--- NOTE | 2019-08-30 12:26 | ROE_ITS ---
DATE OF PROCEDURE: August 30, 2019 PREOPERATIVE DIAGNOSIS: Symptomatic cholelithiasis. POSTOPERATIVE DIAGNOSIS: Same. PROCEDURE: Laparoscopic cholecystectomy. SURGEON: Maria Del Carmen Espinal M.D. ANESTHESIA: Local and general. INDICATIONS: This is a 38-year-old woman who presents with frequent postprandial right upper quadran t pain and a gallbladder ultrasound showing numerous gallstones. There is no gallbladder wall thicke harlan. Her labs are normal. No evidence of common bile duct dilation. PROCEDURE: She was placed supine on the operating table and under general anesthetic was prepped and draped sterilely. The patient is status post laparoscopic gastric bypass. The incision just below and to the left of the umbilicus was utilized. The skin here was infiltrated with local anesthetic a nd the prior incision opened with a knife. The abdomen was entered under direct visualization with a 5 mm scope and a C02 pneumoperitoneum begun. She was placed in reverse Trendelenburg position. The re were no significant intra-abdominal adhesions. The epigastric and two lateral ports were placed, after injecting local anesthetic, under direct visualization. The gallbladder was not acutely inflam ed. The fundus was pulled up over the liver and the infundibulum retracted laterally. The patient h ad excellent anatomy. The peritoneum overlying the triangle of Calot was dissected free to expose th e cystic artery. This was visualized going directly onto the gallbladder. This was clipped twice pr oximally, once distally and divided. The cystic duct was dissected free and visualized going directl y onto the gallbladder. The common bile duct was also visualized. I did obtain a critical view. Th e cystic duct was not dilated. This was palpated and no stones were identified within it. The cysti c duct was clipped twice distally, once proximally and divided. The gallbladder was then dissected o ff the liver bed with hook cautery. The patient had a fairly mobile mesentery to the gallbladder. T here was an additional vascular branch within the gallbladder fossa that was clipped in two locations . The gallbladder was removed through the epigastric incision in an EndoCatch bag. The gallbladder did not fit through the 12 mm incision due to the presence of numerous gallstones, so the fascial inc ision was extended, as well as the skin incision. Once the gallbladder was removed, the operative si te was inspected and revealed no bleeding or bile leak. The ports were removed with no evidence of p ort site bleeding and the C02 released. The fascia at the epigastric incision was closed with a few interrupted #0 Vicryl sutures and then the skin at all port sites closed with a #4-0 Monocryl subcuti cular stitch. She tolerated the procedure well and was stable to recovery. cc: Savannah Ozuna N.P.
== END 2019-08-30 12:40 | disposition home or self-care (01) ==
PROVIDERS: PCP Nurse Practitioner Family; Visit Provider Surgery
PROC: 0FT44ZZ Resection of Gallbladder, Percutaneous Endoscopic Approach (ICD-10-PCS; CPT 47562; principal; 2019-08-30 09:00)
DX: K80.10 Calculus of gallbladder with chronic cholecystitis without obstruction (principal); K21.9 Gastro-esophageal reflux disease without esophagitis; G47.33 Obstructive sleep apnea (adult) (pediatric)
CPT/HCPCS: 47562; 88304; J1100; J1885; J2405; J3475

== ENCOUNTER 2019-11-11 19:12 | Emergency (ER) | payer OTHER, SELFPAY ==
[2019-11-11 19:16] VITALS: BP 131/77; PULSE 56; RESP 16; TEMP 36.6; O2SAT 97
[2019-11-11 19:22] VITALS: RESP 16
--- NOTE | 2019-11-11 19:26 | ED.GENADUL_ITS ---
Discharge Plan Disposition Patient Disposition: HOME Condition: Good Discharge Details Chief Complaint: Chest Pain Clinical Impression: Chest pain, Epigastric abdominal pain Primary Care Provider: Savannah Ozuna ED Provider: Noe Cline Home Meds and New Rx's Prescriptions: New sucralfate [Carafate] 1 gram tablet 1 gm PO QACHS Qty: 90 RF: 0 Continued acetylcysteine 600 mg capsule 1,200 mg PO PRN RF: 0 calcium carbonate-vitamin D3 500 mg(1,250mg) -400 unit tablet 1 tab PO BID RF: 0 magnesium 250 mg tablet 250 mg PO DAILY RF: 0 Botox 100 unit recon soln 200 unit IM ONCE RF: 0 fluoxetine [Prozac] 20 mg capsule 20 mg PO DAILY RF: 0 multivitamin tablet 1 tab PO DAILY RF: 0 cholecalciferol (vitamin D3) 2,000 unit tablet 2,000 unit PO DAILY RF: 0 vitamin B complex [B Complex 1] tablet 1 tab PO DAILY RF: 0 lamotrigine [Lamictal] 200 mg tablet 400 mg PO DAILY RF: 0 omega-3 fatty acids capsule 1,000 mg PO DAILY RF: 0 propranolol [Inderal LA] 60 mg capsule,extended release 24 hr 120 mg PO DAILY RF: 0 omeprazole 20 MG tablet,delayed release (DR/EC) 40 mg PO DAILY RF: 0 zolpidem [Ambien CR] 12.5 mg tablet,ext release multiphase 12.5 mg PO HS RF: 0 naproxen 250 mg tablet 250 mg PO BID PRN (Reason: pain) Qty: 20 RF: 0 naltrexone 50 mg Tablet 50 mg PO QAM RF: 0 rizatriptan [Maxalt] 10 mg tablet 10 mg PO PRN PRN (Reason: Headache) RF: 0 Discharge Instructions Instructions: Epigastric Pain (ED) Additional Instructions: At this time your CT scan, heart markers, and labs show no evidence of acute life-threatening process. I suspect with a history of gastric bypass surgery that this is likely related to gastric ulcer. Please avoid spicy foods, tomato- based products, or citrus-based products. Please avoid any more barbecue buffalo wings. Please take the Carafate as directed. If you notice any worsening of your symptoms, or any new symptoms such as vomiting, diarrhea, fever, chills, shortness of breath, chest pain, numbness, weakness, or fainting , please return immediately to the emergency department for reevaluation. Please follow up with your primary care provider as soon as possible for reassessment and reevaluation. As always, it was a pleasure participating in your medical care today. Referrals: Savannah Ozuna [Primary Care Provider] - Medical Decision Making <Terry Estevez MD - Last Filed: 11/11/19 19:31> 39 yo female with hx of htn, smoker who quit 2 years ago but continues to vape, no alcohol or drug use, htn, comes in with chest tightness and achiness radiating to the back since 1pm. She denies prior cardiac history and can't think of anything that makes the pain better or worse. Denies any recent travel or surgeries. She has a soft abdomen without guarding or rebound. EKG shows no acute ischemic findings, heart score is 2, will send troponin. Given the pain radiating to the back concern for possible dissection, will obtain CTA. She has no evidence of dvt, hypoxia, tachycardia and no pleuritic chest pain so doubt PE at this time. Pt will be signed out to oncoming provider pending lab work and imaging results Differential Diagnosis Differential Diagnosis: acs, dissection, chest wall pain ECG Data Attestation: I personally reviewed and interpreted this ECG (s) as follows: Prior ECG tracings: not available for review Interpretation: sinus bradycardia, rate of 57, pr 162, qtc 413, no acute st t wave ischemic findings <Noe Cline DO - Last Filed: 11/11/19 21:03> Case was signed out to me by my colleague Dr. Terry Estevez. Please refer to his [facility] assessment plan for initial assessment and plan. Patient presents with kind of a epigastric chest achiness. Questionably radiates to back. Initially she thought there may be an exertional component, however she states that this is not the case. It is more so worse when she lies flat. She does have a history of a gastric sleeve in the past,/bariatric surgery. Symptoms started greater than 7 hours ago. Currently the patient states she feels great and would like to go home. EKG and troponin were negative. CTA of the chest abdomen pelvis was negative for acute process, dissection, or PE per virtual radiology. She has a surgically absent gallbladder. Repeat exam demonstrates no abdominal or chest pain whatsoever. She states that she feels well. Vital signs normal. Laboratory work-up unremarkable. At this time with no exertional component, a low risk heart score, signs and symptoms clinically inconsistent with cardiac etiology and certainly more concerning for gastric etiology I feel that she can be discharged. I did offer GI cocktail however the patient has refused this. She did state that she had buffalo wings last night, and this certainly may have brought it on as she normally does not take anything spicy. However I did have a long discussion with her about red flags which to return the patient and family understand. We will give Carafate for home use. I have extensively reviewed the treatment plan and discharge instructions with the patient and their family. I have addressed all patient concerns at this time. The patient and family was made aware of what symptoms to monitor for that would warrant a return to the emergency department. Discussed the plan with the patient and family, they demonstrate verbal understanding and agreement with our assessment and plan at this time. FINDINGS: Pulmonary arteries: Pulmonary artery opacification is adequate. No pulmonary embolism. Aorta: No thoracic aortic aneurysm or dissection. Thyroid: No mass. Lungs: No consolidation. No masses. Pleural space: No pneumothorax. No pleural effusion. Heart: No cardiomegaly. No pericardial effusion. Lymph nodes: Unremarkable. No pathologically enlarged lymph nodes. Bones/joints: Unremarkable. No acute fracture. Soft tissues: No focal abnormality. IMPRESSION: No pulmonary embolism. No aortic dissection. No acute finding. FINDINGS: Aorta: No abdominal aortic aneurysm or dissection. Celiac trunk and mesenteric arteries: No occlusion or significant stenosis. Renal arteries: No occlusion or significant stenosis. Right iliac arteries: No occlusion or significant stenosis. Left iliac arteries: No occlusion or significant stenosis. Liver: No mass. Gallbladder and bile ducts: Gallbladder surgically absent. Pancreas: Unremarkable. No mass. No ductal dilation. Spleen: Unremarkable. No splenomegaly. Adrenals: Unremarkable. No mass. Kidneys and ureters: Unremarkable. No solid mass. No hydronephrosis. Stomach and bowel: Postsurgical changes of prior gastric bypass/sleeve gastrectomy. No focal colonic mural thickening or significant pericolonic inflammatory stranding. No evidence of obstruction. Appendix: Within normal limits. Intraperitoneal space: Unremarkable. No free air. No significant fluid collection. Lymph nodes: Unremarkable. No enlarged lymph nodes. Bladder: Unremarkable. No mass. Reproductive: Unremarkable as visualized. Bones/joints: No acute fracture. No dislocation. Soft tissues: Unremarkable. IMPRESSION: No aortic dissection. No acute finding. Dictated and Authenticated by: Arnav Maria MD. HPI <Terry Estevez MD - Last Filed: 11/11/19 19:31> General Mode of arrival: ambulatory . Date/Time Provider Initiated Documentation: 11/11/19 19:17 . Limitations to Documentation: no limitations . Information obtained by: patient . History of Present Illness 39 year old F presents to the emergency department with the chief complaint of chest pain, described as moderate, Quality is described as stabbing and aching, Patient started experiencing this hour(s) (6) and it has been constant. No relieving factors improve symptom(s), No exacerbating factors reported . Patient did receive the following treatments prior to arrival, Aspirin (182mg) Related Data Home Medications Medication Instructions Recorded Confirmed omeprazole 40 mg PO DAILY 12/24/13 11/11/19 cholecalciferol (vitamin D3) 2,000 2,000 unit PO DAILY 01/12/19 11/11/19 unit tablet fluoxetine 20 mg capsule 20 mg PO DAILY 01/12/19 11/11/19 multivitamin 1 tab PO DAILY 01/12/19 11/11/19 vitamin B complex 1 tab PO DAILY 01/12/19 11/11/19 acetylcysteine 600 mg capsule 1,200 mg PO PRN cap 02/14/19 11/11/19 calcium carbonate 500 mg (1,250 1 tab PO BID 02/14/19 11/11/19 mg)-vitamin D3 400 unit tablet lamotrigine 200 mg tablet 400 mg PO DAILY tab 02/14/19 11/11/19 magnesium 250 mg tablet 250 mg PO DAILY 02/14/19 11/11/19 omega-3 fatty acids 1,000 mg PO DAILY cap 02/14/19 11/11/19 zolpidem 12.5 mg tablet,extended 12.5 mg PO HS tab 02/14/19 11/11/19 release,multiphase naproxen 250 mg PO BID PRN #20 tab 02/21/19 11/11/19 propranolol 60 mg capsule,24 120 mg PO DAILY cap 04/06/19 11/11/19 hr,extended release onabotulinumtoxinA 100 unit 200 unit IM ONCE 08/25/19 11/11/19 solution for injection naltrexone 50 mg PO QAM 11/11/19 11/11/19 rizatriptan [Maxalt] 10 mg PO PRN PRN 11/11/19 11/11/19 sucralfate [Carafate] 1 gm PO QACHS #90 tab 11/11/19 Previous Rx's Medication Instructions Recorded naproxen 250 mg PO BID PRN #20 tab 02/21/19 sucralfate [Carafate] 1 gm PO QACHS #90 tab 11/11/19 Allergies Allergy/AdvReac Type Severity Reaction Status Date / Time Penicillins Allergy Intermediate Hives Unverified 09/12/19 09:03 aripiprazole [From Abilify] AdvReac Hyperactivi Verified 09/12/19 09:03 ty General Stated Complaint: Chest Pain BENIGNO: 2 Review of Systems <Terry Estevez MD - Last Filed: 11/11/19 19:31> All systems reviewed & are unremarkable except as noted in HPI and below Constitutional Constitutional: Denies chills, Denies fever(s) and Denies weakness Cardiovascular Cardiovascular: Denies chest pain and Denies dyspnea Respiratory Respiratory: Denies cough and Denies dyspnea Gastrointestinal Gastrointestinal: Denies abdominal pain, Denies nausea and Denies vomiting Musculoskeletal Musculoskeletal: Denies joint swelling Neurologic Neurologic: Denies weakness Psychiatric Psychiatric: Denies depression PFS <Terry Estevez MD - Last Filed: 11/11/19 19:31> Social History Smoking/Tobacco Use Status: Former Tobacco Use Alcohol Intake: current Alcohol Intake frequency: a few times a month Drug use: Never Substance use type: does not use Do you feel safe at home: Yes Do you feel safe in your relationship?: Yes Exam <Terry Estevez MD - Last Filed: 11/11/19 19:31> Const General: no acute distress Orientation: alert [facility] Head: normal to inspection Ears: external ears normal General nose exam: external nose normal Mouth: moist mucous membranes Eyes General: appearance normal, both eyes and all related structures Neck Neck: normal visual inspection Resp Effort & Inspection: normal respiratory effort and able to speak in complete sentences Cardio Rate: regular rate GI Palpation: soft Skin General skin exam: no rashes or lesions noted Neuro General: alert and oriented x3 Extrem General: normal to inspection Psych Mental Status: mental status grossly normal Course <Terry Estevez MD - Last Filed: 11/11/19 19:31> Vital Signs Vital signs: Vital Signs Temperature 36.6 C 11/11/19 19:16 Pulse 56 L 11/11/19 19:16 Respiratory Rate 16 11/11/19 19:16 Blood Pressure 131/77 11/11/19 19:16 Pulse Oximetry 97 11/11/19 19:16 Temperature 36.6 C 11/11/19 19:16 Temperature Source Skin 11/11/19 19:16 Pulse 56 L 11/11/19 19:16 Respiratory Rate 16 11/11/19 19:22 Respiratory Effort Non-Labored 11/11/19 19:22 Respiratory Depth Normal 11/11/19 19:22 Respiratory Pattern Normal 11/11/19 19:22 Blood Pressure 131/77 11/11/19 19:16 Pulse Oximetry 97 11/11/19 19:16 Pain Level 3 11/11/19 19:22 Sign Out <Terry Estevez MD - Last Filed: 11/11/19 19:31> Sign Out Data: Sign Out Comment: chest pain-labs and imaging and dispo, if everything negative can likely be discharged Last updated by Terry Estevez MD at 11/11/19 19:43
[2019-11-11 19:42] LABS: Absolute Basophil Count 0.06 k/cumm (0.0-0.2); Absolute Eosinophil Count 0.16 k/cumm (0.0-0.7); Absolute Lymphocyte Count 2.81 k/cumm (1.2-3.4); Absolute Monocyte Count 0.69 k/cumm (0.11-0.7); Absolute Neutrophil Count 3.83 k/cumm (1.2-6.7); Basophils % 0.8; Eosinophils % 2.1; HCT 40.3 % (36.0-46.0); HGB 12.9 g/dL (12.0-15.5); Lymphocytes % 37.2; Mean Corpuscular Hemoglobin 29.5 pg (27.0-33.0); Monocytes % 9.1; Neutrophils % 50.8; Platelet Count 323 x1000/uL (130-400); RBC 4.38 m/cumm (4.00-5.20); RBC Distribution Width 12.9 % (11.7-14.6); White Blood Cell Count 7.55 k/cumm (4.4-10.8)
[2019-11-11] MEDS: Normal Saline Flush 10 ML SYR IVP (19:44)
[2019-11-11 19:52] LABS: Magnesium 2.1 mg/dL (1.8-2.4)
[2019-11-11 19:55] LABS: PTT Activated 24.1 sec (21.0-31.4); Prothrombin Time 9.9 sec (9.3-11.0)
[2019-11-11 20:00] LABS: ALT 30 U/L (14-59); AST 35 U/L (15-37); Albumin 3.1 g/dL (3.4-5.0); Alkaline Phosphatase 74 U/L (46-116); Anion Gap 6.9 mmol/L (3-11); BUN 11 mg/dL (7-18); Bilirubin, Direct 0.05 mg/dL (0.00-0.20); Bilirubin, Total 0.2 mg/dL (0.2-1.0); CO2 28.1 mmol/L (21.0-32.0); CREATININE 0.71 mg/dL (0.55-1.02); Calcium 8.2 mg/dL (8.5-10.1); Chloride 107 mmol/L (98-107); Glucose 96 mg/dL (74-106); Lipase 83 U/L (73-393); Sodium 142 mmol/L (136-145); Total Protein 6.7 g/dL (6.4-8.2)
--- NOTE | 2019-11-11 20:00 | DI.CT_ITS ---
EXAM: CT THORAX ABD/PEL CTA CT THORAX ABD/PEL CTA CLINICAL HISTORY: chest pain radiating to back. chest pain radiating to back TECHNIQUE: Imaging Protocol: Axial CT angiography was performed with multi-slice acquisition and m ulti-planar and/or 3D reconstructions. CONTRAST MATERIAL: Intravenous: Omnipaque 350 Contrast volume:structured data in ml Oral: yes / no COMPARISON: CT ABDOMEN PELVIS W from 08/22/2019 FINDINGS: CT angiography of the chest: Thyroid: Unremarkable Aorta: No aneurysm or dissection. Heart: No cardiomegaly. No coronary artery calcification or pericardial effusion. Mediastinum: No thoracic adenopathy. Pulmonary arteries: No evidence of pulmonary embolism. Lungs: Clear. Pleural space: No pneumothorax or pleural effusion. Bones: No acute abnormality. CT angiography of the abdomen and pelvis: Vascular Structures: Celiac [place]/SMA: No evidence of stenosis or occlusion. Renal Arteries: No evidence of stenosis or occlusion. Aorta: No aneurysm. No dissection. Pelvis: Iliac Arteries: No evidence of stenosis or occlusion. Common Femoral Arteries: No evidence of stenosis or occlusion. Soft Tissues: Lung bases:Normal. Liver: Normal density. No measurable mass. Gallbladder and biliary tract: Status post cholecystectomy. No biliary ductal dilatation. Pancreas: Normal density, no abnormal calcifications or inflammatory process. Spleen: Normal. Kidneys: Normal size, contour and axis. No radiodense stones or obstructive uropathy. No masses seen. Adrenal glands: No masses seen. Bladder: Symmetric distention, no gross wall thickening. Bowel: Status post gastric bypass. No bowel obstruction or inflammation. Normal appendix. Peritoneal cavity: No ascites, collection or mesenteric inflammatory response. Bones: Within normal limits. Reproductive organs: Unremarkable. Lymph nodes: Within normal limits. IMPRESSION: 1. No evidence of pulmonary embolism, aortic dissection or aneurysm. 2. No evidence of aortic dissection. 3. No acute abdominal or pelvic process. DATA REPOSITORY: All CT scans at this facility are submitted to the National Radiology Data Registry (NRDR) Dose Index Registry (DIR) with the [employer] (ACR). RADIATION OPTIMIZATION: All CT scans at this facility use at least one of these dose optimization te chniques: automated exposure control; mA and/or kV adjustment per patient size (includes targeted exa ms where dose is matched to clinical indication); or iterative reconstruction.
[2019-11-11 20:02] VITALS: PULSE 53; RESP 13; O2SAT 98
[2019-11-11] MEDS: Omnipaque 350 MG/ML 100 ML BTL IJ (20:02)
[2019-11-11 20:22] VITALS: BP 100/66
--- NOTE | 2019-11-11 20:34 | DI.VRAD_ITS ---
PROCEDURE INFORMATION: Exam: CT Angiography Chest With Contrast Exam date and time: 11/11/2019 7:26 PM Age: 39 years old Clinical indication: Chest pain; Type not specified; Other: Cp radiating to back; Prior surgery; Surgery date: 1-6 months; Surgery type: Gallbladder 08/2019, gastric bypass 2 years ago TECHNIQUE: Imaging protocol: Computed tomographic angiography of the chest with intravenous contrast. 3D rendering: MIP and/or 3D reconstructed images were created by the technologist. Radiation optimization: All CT scans at this facility use at least one of these dose optimization techniques: automated exposure control; mA and/or kV adjustment per patient size (includes targeted exams where dose is matched to clinical indication); or iterative reconstruction. Contrast material: [id number]; Contrast volume: 100 ml; Contrast route: IV RT AC 18G; COMPARISON: No relevant prior studies available. FINDINGS: Pulmonary arteries: Pulmonary artery opacification is adequate. No pulmonary embolism. Aorta: No thoracic aortic aneurysm or dissection. Thyroid: No mass. Lungs: No consolidation. No masses. Pleural space: No pneumothorax. No pleural effusion. Heart: No cardiomegaly. No pericardial effusion. Lymph nodes: Unremarkable. No pathologically enlarged lymph nodes. Bones/joints: Unremarkable. No acute fracture. Soft tissues: No focal abnormality. IMPRESSION: No pulmonary embolism. No aortic dissection. No acute finding. PROCEDURE INFORMATION: Exam: CT Angiography Abdomen and Pelvis With Contrast Exam date and time: 11/11/2019 7:26 PM Age: 39 years old Clinical indication: Chest pain; Type not specified; Other: Cp radiating to back; Prior surgery; Surgery date: 1-6 months; Surgery type: Gallbladder 08/2019, gastric bypass 2 years ago TECHNIQUE: Imaging protocol: Computed tomographic angiography of the abdomen and pelvis with intravenous contrast material. 3D rendering: MIP and/or 3D reconstructed images were created by the technologist. Radiation optimization: All CT scans at this facility use at least one of these dose optimization techniques: automated exposure control; mA and/or kV adjustment per patient size (includes targeted exams where dose is matched to clinical indication); or iterative reconstruction. Contrast material: [id number]; Contrast volume: 100 ml; Contrast route: IV RT AC 18G; COMPARISON: No relevant prior studies available. FINDINGS: Aorta: No abdominal aortic aneurysm or dissection. Celiac trunk and mesenteric arteries: No occlusion or significant stenosis. Renal arteries: No occlusion or significant stenosis. Right iliac arteries: No occlusion or significant stenosis. Left iliac arteries: No occlusion or significant stenosis. Liver: No mass. Gallbladder and bile ducts: Gallbladder surgically absent. Pancreas: Unremarkable. No mass. No ductal dilation. Spleen: Unremarkable. No splenomegaly. Adrenals: Unremarkable. No mass. Kidneys and ureters: Unremarkable. No solid mass. No hydronephrosis. Stomach and bowel: Postsurgical changes of prior gastric bypass/sleeve gastrectomy. No focal colonic mural thickening or significant pericolonic inflammatory stranding. No evidence of obstruction. Appendix: Within normal limits. Intraperitoneal space: Unremarkable. No free air. No significant fluid collection. Lymph nodes: Unremarkable. No enlarged lymph nodes. Bladder: Unremarkable. No mass. Reproductive: Unremarkable as visualized. Bones/joints: No acute fracture. No dislocation. Soft tissues: Unremarkable. IMPRESSION: No aortic dissection. No acute finding. Dictated and Authenticated by: Arnav Maria MD. Ordering:ANIKET Stewart MD
[2019-11-11 21:08] VITALS: BP 102/71; PULSE 51; RESP 16; O2SAT 97
== END 2019-11-11 21:15 | disposition home or self-care (01) ==
PROVIDERS: Emergency Medicine; Emergency Provider Student in an Organized Health Care Education/Training Program; PCP Nurse Practitioner Family
DX: R07.9 Chest pain, unspecified (principal); R10.13 Epigastric pain; Z98.84 Bariatric surgery status; I10 Essential (primary) hypertension
CPT/HCPCS: 36415; 74177; 80053; 83690; 93005; 99285; 82248; 83735; 85025; 85610; 85730; 93010; 99284; J3490

== ENCOUNTER 2020-05-15 01:41 | Outpatient (CLI) | payer OTHER, SELFPAY ==
[2020-05-15 14:41] LABS: ALT 18 U/L (14-59); AST 14 U/L (15-37); Albumin 3.4 g/dL (3.4-5.0); Alkaline Phosphatase 71 U/L (46-116); Anion Gap 8.3 mmol/L (3-11); BUN 12 mg/dL (7-18); Bilirubin, Total 0.2 mg/dL (0.2-1.0); CO2 28.7 mmol/L (21.0-32.0); CREATININE 0.75 mg/dL (0.55-1.02); Calcium 8.9 mg/dL (8.5-10.1); Chloride 106 mmol/L (98-107); Glucose 91 mg/dL (74-106); Potassium 4.3 mmol/L (3.5-5.1); Sodium 143 mmol/L (136-145); TSH 2.37 uIU/mL (0.36-3.74); Total Protein 7.2 g/dL (6.4-8.2)
== END 2020-05-15 02:01 ==
PROVIDERS: PCP Nurse Practitioner Family; Visit Provider Nurse Practitioner Family
DX: F31.74 Bipolar disorder, in full remission, most recent episode manic (principal)
CPT/HCPCS: 36415; 80053; 84443

== ENCOUNTER 2021-09-01 22:21 | Emergency (ER) | payer OTHER, SELFPAY ==
[2021-09-01 22:28] VITALS: BP 125/78; PULSE 60; RESP 16; TEMP 36.2; O2SAT 99
--- NOTE | 2021-09-01 22:34 | ED.GENADUL_ITS ---
Discharge Plan Disposition Patient Disposition: HOME Condition: Improving Discharge Details Clinical Impression: Headache, migraine Primary Care Provider: Savannah Ozuna ED Provider: Uday Menard Home Meds and New Rx's Prescriptions: Continued calcium carbonate-vitamin D3 500 mg(1,250mg) -400 unit tablet 1 tab PO BID RF: 0 magnesium 250 mg tablet 250 mg PO DAILY RF: 0 rizatriptan 10 mg tablet See Rx Instructions PO .COMPLEX Qty: 14 RF: 0 propranolol 120 mg capsule,extended release 24hr 120 mg PO DAILY RF: 0 Emgality Pen 120 mg/mL pen injector 120 mg subcut ONCE Qty: 1 RF: 5 gabapentin 100 mg capsule 200 mg PO QHS RF: 0 fluoxetine [Prozac] 20 mg capsule 30 mg PO DAILY RF: 0 multivitamin tablet 1 tab PO DAILY RF: 0 cholecalciferol (vitamin D3) 2,000 unit tablet 2,000 unit PO DAILY RF: 0 vitamin B complex [B Complex 1] tablet 1 tab PO DAILY RF: 0 lamotrigine [Lamictal] 200 mg tablet 400 mg PO DAILY RF: 0 hydroxyzine HCl 50 mg tablet 50 mg PO QHS RF: 0 naproxen 250 mg tablet 250 mg PO BID PRN (Reason: pain) Qty: 30 RF: 3 omeprazole 20 MG tablet,delayed release (DR/EC) 40 mg PO DAILY RF: 0 zolpidem [Ambien CR] 12.5 mg tablet,ext release multiphase 12.5 mg PO HS RF: 0 Discharge Instructions Instructions: General Headache (ED) Additional Instructions: Home to rest this evening. Sleep in a dark and quiet room. You received a single dose of a long-acting steroid, dexamethasone, that will continue to provide anti-inflammatory effect. Continue your routine medications. Small, frequent sips of fluids to maintain hydration. Return to the emergency department for any acute concerns. Medical Decision Making 40-year-old female presents from home with hours of persistent frontal headache similar to previous migraine. Refractive to Maxalt at home. She has not fallen, injured her self, or been recently ill. She arrives afebrile, interactive. IV access established, patient given fluid bolus and parenteral medication. She was observed, improved. Consistent with migraine headache. Appropriate for discharge at this time. HPI General Mode of arrival: ambulatory . Date/Time Provider Initiated Documentation: 09/01/21 22:25 . Limitations to Documentation: no limitations . Information obtained by: patient . History of Present Illness 40 year old F presents to the emergency department with the chief complaint of Frontal headache, began today, described as moderate, severe and similar to prior episodes, Quality is described as dull and constant, and is localized to the head. Patient reports no radiation. Patient started experiencing this hour(s) and it has been constant. No relieving factors improve symptom(s), Other factors that worsen symptoms (Photophobic) . Patient notes denies chest pain, fever/chills, loss of appetite and nausea/vomiting. Patient did receive the following treatments prior to arrival, other (Maxalt) Related Data Home Medications Medication Instructions Recorded Confirmed omeprazole 40 mg PO DAILY 12/24/13 09/01/21 cholecalciferol (vitamin D3) 50 2,000 unit PO DAILY 01/12/19 09/01/21 mcg (2,000 unit) tablet fluoxetine 20 mg capsule 30 mg PO DAILY 01/12/19 09/01/21 multivitamin 1 tab PO DAILY 01/12/19 09/01/21 vitamin B complex 1 tab PO DAILY 01/12/19 09/01/21 calcium carbonate 500 mg (1,250 1 tab PO BID 02/14/19 09/01/21 mg)-vitamin D3 400 unit tablet lamotrigine 200 mg tablet 400 mg PO DAILY tab 02/14/19 09/01/21 magnesium 250 mg tablet 250 mg PO DAILY 02/14/19 09/01/21 zolpidem 12.5 mg tablet,extended 12.5 mg PO HS tab 02/14/19 09/01/21 release,multiphase naproxen 250 mg tablet 250 mg PO BID PRN #30 tab 07/26/20 09/01/21 hydroxyzine HCl 50 mg tablet 50 mg PO QHS 08/20/20 09/01/21 gabapentin 100 mg capsule 200 mg PO QHS cap 06/04/21 09/01/21 galcanezumab-gnlm 120 mg/mL 120 mg SUBCUT ONCE #1 ml 06/04/21 09/01/21 subcutaneous pen injector propranolol 120 mg 120 mg PO DAILY cap 06/04/21 09/01/21 capsule,extended release 24 hr rizatriptan 10 mg tablet See Rx Instructions PO .COMPLEX 06/04/21 09/01/21 #14 tab Previous Rx's Medication Instructions Recorded naproxen 250 mg tablet 250 mg PO BID PRN #30 tab 07/26/20 galcanezumab-gnlm 120 mg/mL 120 mg SUBCUT ONCE #1 ml 06/04/21 subcutaneous pen injector rizatriptan 10 mg tablet See Rx Instructions PO .COMPLEX 06/04/21 #14 tab Allergies Allergy/AdvReac Type Severity Reaction Status Date / Time Penicillins Allergy Intermediate Hives Unverified 09/01/21 22:37 aripiprazole [From Abilify] AdvReac Hyperactivi Verified 09/01/21 22:37 ty General BENIGNO: 2 Review of Systems Narrative: 6 systems reviewed and otherwise negative PFSH Active Problem List Sleep apnea (Acute) Chest pain (Acute) Epigastric abdominal pain (Acute) Postop check (Acute) Chronic migraine (Acute) Abnormal auditory perception (Acute) Hypertension (Chronic) Gastroesophageal reflux disease without esophagitis (Acute) Xanthoma of eyelid (Acute) Cholelithiasis (Acute) Bipolar disorder (Acute) Headache, chronic migraine without aura (Acute) TMJ (temporomandibular joint syndrome) (Acute) Medical History Acne Chronic GERD Coccydynia Depression Dyshidrotic eczema Eczema Fatigue History of meningitis Hypotension Irregular periods Low back pain Menorrhagia Nausea & vomiting Obesity Onychomycosis MAYKEL (obstructive sleep apnea) Surgical History H/O tubal ligation Hx of bariatric surgery 01/2018 S/P laparoscopic cholecystectomy (~08/2019) Family History Father Hypertension Atrial fibrillation Mother Hyperlipidemia Depression Migraines Anxiety Maternal Grandfather Chronic headaches Other Cancer Social History Smoking/Tobacco Use Status: Former Tobacco Use Smoking risk assessment performed?: Yes Alcohol Intake: former Drug use: Never Substance use type: does not use Do you feel safe at home: Yes Do you feel safe in your relationship?: Yes Exam Narrative Exam Narrative: GEN: awake, alert, oriented 3. Pleasant, well groomed, interactive. HEAD: Normocephalic, atraumatic ENT: Mucous membranes moist, oropharynx unremarkable, External ear exam unremarkable EYES: PERRL, EOMI NECK: Full ROM, no RUDY, no menigismus CHEST/RESP: Nontender, clear to auscultation bilateral, no wheeze/rhonchi/rales CARDIOVASCULAR: RRR, no murmur, rub davie. 2+ Rad pulse bilateral ABDOMEN: Soft, nontender, no mass. +Bowel sounds EXT: Full ROM, no edema, no rash Neuro: Grossly normal neurologic exam, conversant, interactive. Psych: Speech fluent, thoughts congruent, affect normal
[2021-09-01] MEDS: diphenhydrAMINE 50 MG/ML VIAL 25 MG IVP (22:52)
[2021-09-01] MEDS: Normal Saline 1,000 ML 1000 ML IV (22:52)
[2021-09-01] MEDS: Ketorolac 15 MG/ML VIAL IVP (22:54)
[2021-09-01] MEDS: Dexamethasone 10 MG/ML VIAL IVP (22:56)
[2021-09-01 23:00] VITALS: BP 106/61; PULSE 62; RESP 16; O2SAT 99
[2021-09-01 23:30] VITALS: BP 114/67; PULSE 57; RESP 16; O2SAT 97
[2021-09-02] VITALS: BP 113/62; PULSE 58; RESP 16; O2SAT 98
== END 2021-09-02 00:09 | disposition home or self-care (01) ==
PROVIDERS: Emergency Provider Emergency Medicine; PCP Nurse Practitioner Family
DX: G43.801 Other migraine, not intractable, with status migrainosus (principal)
CPT/HCPCS: 81025; 96361; 96365; 96375; 99284; J1100; J1200; J1885

== ENCOUNTER 2021-09-19 02:16 | Outpatient (CLI) | payer OTHER, SELFPAY ==
--- NOTE | 2021-09-19 | DI.MAMMO_ITS ---
Exam(s) MAMMO SCREENING EXAM: MAMMO SCREENING CLINICAL HISTORY: SCREENING, [facility],Z00.00. TECHNIQUE: Bilateral full field digital CC and MLO mammographic images were obtained with 3D tomosyn thesis and utilizing computer aided detection (CAD). COMPARISON: None. This is a baseline mammogram on this 40-year-old patient FINDINGS: There are no CAD designations. There are no new spiculated masses nor malignant appearing microcalcification groups. There is no significant architectural distortion nor skin thickening-retraction. IMPRESSION: No radiographic evidence of malignancy. BI-RADS Category 1 - Negative Breast Density - Category B - Scattered areas of fibroglandular density Breast density Category C or D implies that the patient has dense breast tissue. Dense breast tissue can make it harder to find cancer on a mammogram. Dense breast tissue is also associated with an incr eased risk of breast cancer. This information about the result of the mammogram report was provided to the patient to raise their awareness. Use this report when you speak with the patient about their risks for breast cancer, which includes their family history. At that time, you may recommend additional screening tests (Ultrasoun d or MRI) as these tests may add significant information. A negative radiographic report should not delay biopsy if a dominant or clinically suspicious mass is present. Up to ten percent of cancers are not identified on mammography. A negative report may reinforce clinical impression. Adenosis and dense breasts may obscure an underlying neoplasm. False positive reports average 6 to 10%. Patient will receive a letter notifying them of these results.
== END 2021-09-19 02:36 ==
PROVIDERS: PCP Nurse Practitioner Family; Visit Provider Family Medicine
DX: Z12.31 Encounter for screening mammogram for malignant neoplasm of breast (principal)
CPT/HCPCS: 77063; 77067

== ENCOUNTER 2021-12-27 15:53 | Emergency (ER) | payer OTHER, SELFPAY ==
[2021-12-27 16:00] VITALS: BP 113/68; PULSE 80; TEMP 36.3; O2SAT 98
--- NOTE | 2021-12-27 16:18 | W.ED.GENAD ---
Discharge Plan Disposition Patient Disposition: HOME Condition: Stable Discharge Details Clinical Impression: Lumbago with sciatica, left side Primary Care Provider: Savannha Ozuna ED Provider: Manjula Sherman Home Meds and New Rx's Prescriptions: Continued magnesium 250 mg tablet 250 mg PO DAILY 0RF propranolol 120 mg capsule,extended release 24hr 120 mg PO DAILY 0RF fluoxetine [Prozac] 20 mg capsule 30 mg PO DAILY 0RF multivitamin tablet 1 tab PO DAILY 0RF vitamin B complex [B Complex 1] tablet 1 tab PO DAILY 0RF lamotrigine [Lamictal] 200 mg tablet 400 mg PO DAILY 0RF Emgality Pen 120 mg/mL pen injector 120 mg subcut ONCE Qty: 1 5RF omeprazole 20 MG tablet,delayed release (DR/EC) 40 mg PO DAILY 0RF zolpidem [Ambien CR] 12.5 mg tablet,ext release multiphase 12.5 mg PO HS 0RF naltrexone 50 mg Tablet 100 mg PO QHS 0RF No Action calcium carbonate-vitamin D3 500 mg(1,250mg) -400 unit tablet 1 tab PO BID 0RF gabapentin 100 mg capsule 300 mg PO QHS 0RF Nurtec ODT 75 mg tablet,disintegrating 75 mg PO ONCE PRN (Reason: migraine headache) Qty: 15 3RF Rx Instructions: As a single dose. No more than 1 dose in 24 hours. cholecalciferol (vitamin D3) 2,000 unit tablet 2,000 unit PO DAILY 0RF hydroxyzine HCl 50 mg tablet 50 mg PO QHS 0RF naproxen 250 mg tablet 250 mg PO BID PRN (Reason: pain) Qty: 30 3RF Rx Instructions: Take as needed for headaches. No more than 2-3 times per week. rizatriptan 10 mg tablet See Rx Instructions PO .COMPLEX Qty: 9 2RF Rx Instructions: take 1 tab at onset of headache; if no relief may repeat 1 tab after at least 2 hrs; max = 2 tabs/24 hr PO Discharge Instructions Instructions: Sciatica (ED), Lumbar Radiculopathy (ED) Additional Instructions: You were given 300 mg of gabapentin here. You may take that up to 3 times daily as needed however this may make you extremely sleepy so be careful. X-ray showed no acute abnormality. Urinalysis shows no evidence of blood or urinary tract infection. Please return as instructed by diagnostic imaging for an ultrasound Doppler of your left lower extremity to rule out a DVT they will call you with an appointment. Do not rub your leg. Consider taking a baby aspirin chewable in the meantime. Please take Tylenol or Ibuprofen with food every 4-6 hours as needed for pain and swelling. Apply ice and heat. Continue taking the Flexeril. Return to the ER for any worsening weakness, numbness or tingling in your lower extremity, loss of bowel or bladder control, any numbness or tingling in your groin or rectum. Follow up with primary care provider in 3-5 days. Return to ED sooner if any worsening or concerns. Increase oral fluids. Stand Alone Forms: Work Release Referrals: Savannah Ozuna [Primary Care Provider] - 3 days Medical Decision Making 41-year-old female presents to the ER with chief complaint of lower back pain which radiates into her left buttock and down her left leg to her foot. She reports that back pain began approximately 2 to 3 days ago and has worsened. She reports the leg pain began today. She denies any saddle anesthesia, loss of bowel or bladder control, numbness or tingling. She also does endorse some dysuria and nausea. She has a past medical history of obstructive sleep apnea, obesity, hypertension, menorrhagia, depression, GERD she also states that she is on naltrexone 100 mg daily. She states that she took a Flexeril 2 hours ago and ibuprofen approximately 2 hours prior to arrival. Urinalysis shows no leukocytosis or signs of infection no blood. Urine hCG is negative. L-spine x-ray noted below. Imaging protocol: XR of the lumbosacral spine. Views: 4 or 5 views. COMPARISON: CR XR sacrum coccyx 10/07/2018 11:08 AM FINDINGS: Bones/joints: Five lumbar type vertebral bodies identified. Normal lumbar lordosis is maintained. Vertebral body heights and intervertebral disc spaces are preserved. No acute fracture or static listhesis. No pars fracture identified on oblique views. Soft tissues: Cholecystectomy clips. IMPRESSION: Unremarkable radiographs of the lumbar spine. Patient received 5 mg of Valium, a gram of Tylenol. 1802: Patient reevaluation. She reports that she is still having 9 out of 10 pain. She is complaining mostly of lower leg and ankle pain. I did offer a CT which patient declines at this time. Patient does normally take gabapentin which she did not take today. We will give her 300 mg now. I did also explain that a ultrasound Doppler of her left lower extremity can be ordered for tomorrow morning to rule out a DVT. 38 mg of Toradol IM was given prior to patient charge. This seemed to improve her symptoms. Patient was discharged into the care of her family. Discussed strict return instructions and follow-up care. A outpatient ultrasound Doppler was ordered to rule out DVT. This text was generated using [employer] system, please disregard any oddities of phrase or misspellings. HPI General Mode of arrival: ambulatory. Date/Time Provider Initiated Documentation: 12/27/21 15:54. Limitations to Documentation: no limitations. Information obtained by: patient, RN notes reviewed and old records reviewed. HPI Narrative: 41-year-old female presents to the ER with chief complaint of lower back pain which radiates into her left buttock and down her left leg to her foot. She reports that back pain began approximately 2 to 3 days ago and has worsened. She reports the leg pain began today. She denies any saddle anesthesia, loss of bowel or bladder control, numbness or tingling. She also does endorse some dysuria and nausea. She has a past medical history of obstructive sleep apnea, obesity, hypertension, menorrhagia, depression, GERD she also states that she is on naltrexone 100 mg daily. She states that she took a Flexeril 2 hours ago and ibuprofen approximately 2 hours prior to arrival. Related Data Home Medications Medication Instructions Recorded Confirmed omeprazole 20 mg tablet,delayed 40 mg PO DAILY 12/24/13 12/27/21 release cholecalciferol (vitamin D3) 50 2,000 unit PO DAILY 01/12/19 12/27/21 mcg (2,000 unit) tablet fluoxetine 20 mg capsule (Prozac) 30 mg PO DAILY 01/12/19 12/27/21 multivitamin 1 tab PO DAILY 01/12/19 12/27/21 vitamin B complex (B Complex 1) 1 tab PO DAILY 01/12/19 12/27/21 calcium carbonate 500 mg-vitamin 1 tab PO BID 02/14/19 11/25/21 D3 10 mcg (400 unit) tablet lamotrigine 200 mg tablet 400 mg PO DAILY tab 02/14/19 12/27/21 (Lamictal) magnesium 250 mg tablet 250 mg PO DAILY 02/14/19 12/27/21 zolpidem 12.5 mg tablet,extended 12.5 mg PO HS tab 02/14/19 12/27/21 release,multiphase (Ambien CR) naproxen 250 mg tablet 250 mg PO BID PRN #30 tab 07/26/20 12/27/21 hydroxyzine HCl 50 mg tablet 50 mg PO QHS 08/20/20 12/27/21 propranolol 120 mg 120 mg PO DAILY cap 06/04/21 12/27/21 capsule,extended release 24 hr galcanezumab-gnlm 120 mg/mL 120 mg SUBCUT ONCE #1 ml 09/09/21 12/27/21 subcutaneous pen injector (Emgality Pen) gabapentin 100 mg capsule 300 mg PO QHS cap 11/25/21 12/27/21 rimegepant 75 mg disintegrating 75 mg PO ONCE PRN #15 tab 11/25/21 12/27/21 tablet (Nurtec ODT) rizatriptan 10 mg tablet See Rx Instructions PO .COMPLEX #9 11/26/21 12/27/21 tab naltrexone 50 mg tablet 100 mg PO QHS 12/27/21 12/27/21 Previous Rx's Medication Instructions Recorded naproxen 250 mg tablet 250 mg PO BID PRN #30 tab 07/26/20 galcanezumab-gnlm 120 mg/mL 120 mg SUBCUT ONCE #1 ml 09/09/21 subcutaneous pen injector (Emgality Pen) rimegepant 75 mg disintegrating 75 mg PO ONCE PRN #15 tab 11/25/21 tablet (Nurtec ODT) rizatriptan 10 mg tablet See Rx Instructions PO .COMPLEX #9 11/26/21 tab Allergies Allergy/AdvReac Type Severity Reaction Status Date / Time Penicillins Allergy Intermediate Hives Unverified 12/27/21 16:05 aripiprazole [From Abilify] AdvReac Hyperactivi Verified 12/27/21 16:05 ty General Stated Complaint: Nk/Back Pain BENIGNO: 3 Review of Systems All systems reviewed & are unremarkable except as noted in HPI and below Constitutional Constitutional: Reports as per HPI PFSH All Active Problems (Updated 12/27/21 @ 18:19 by Manjula Sherman) Lumbago with sciatica, left side (Acute) Headache, migraine (Chronic) Sleep apnea (Acute) Chest pain (Acute) Epigastric abdominal pain (Acute) Postop check (Acute) Chronic migraine (Acute) Abnormal auditory perception (Acute) Hypertension (Chronic) Gastroesophageal reflux disease without esophagitis (Acute) Xanthoma of eyelid (Acute) Cholelithiasis (Acute) Bipolar disorder (Acute) Headache, chronic migraine without aura (Acute) TMJ (temporomandibular joint syndrome) (Acute) Medical History Acne Chronic GERD Coccydynia Depression Dyshidrotic eczema Eczema Fatigue History of meningitis Hypotension Irregular periods Low back pain Menorrhagia Nausea & vomiting Obesity Onychomycosis MAYKEL (obstructive sleep apnea) Surgical History H/O tubal ligation Hx of bariatric surgery 01/2018 S/P laparoscopic cholecystectomy (~08/2019) Family History Father Hypertension Atrial fibrillation Mother Hyperlipidemia Depression Migraines Anxiety Maternal Grandfather Chronic headaches Other Cancer Social History Smoking/Tobacco Use Status: Former Tobacco Use Smoking risk assessment performed?: Yes Alcohol Intake: former Drug use: Never Substance use type: does not use Do you feel safe at home: Yes Do you feel safe in your relationship?: Yes Exam Narrative Exam Narrative: Constitutional: Alert and oriented x3. Appears stated age. Normal body habitus. Head: Normocephalic, no trauma. Eyes: Pupils PERRL, Red reflex noted, EOM's intact. Eyelids symmetrical without lesions, discharge, or swelling. ENT: Bilateral TM's WNL, External ear normal to inspection, no mastoid TTP, swelling, or erythema, Nasal turbinates WNL, no nasal discharge. Normal dentition, Posterior pharynx WNL, no exudate. Chest: RRR, Normal S1, S2, distal pulses intact. Resp: Lungs clear to auscultation bilaterally, no wheezes, rales, or rhonchi. Abdomen: Soft, non-distended, Normoactive bowel sounds all 4 quads. Musculoskeletal: Normal gait, 5/5 strength to all four extremities. Skin: No suspicious rashes or lesions. Capillary refill less than 2 sec. Neurologic: Cranial nerves II-XII intact. Alert and oriented x 3. Motor: No deficits noted. Sensory: Intact bilaterally all 4 extremities. Reflexes: DTR's intact bilaterally.. Hematologic/Lymphatic: No ecchymosis, no lymphadenopathy. Course Vital Signs Vital signs: Vital Signs Temperature 36.3 C L 12/27/21 16:00 Pulse 80 12/27/21 16:00 Blood Pressure 113/68 12/27/21 16:00 Pulse Oximetry 98 12/27/21 16:00 Temperature 36.3 C L 12/27/21 16:00 Temperature Source Temporal Artery Scan 12/27/21 16:00 Pulse 80 12/27/21 16:00 Blood Pressure 113/68 12/27/21 16:00 Blood Pressure Position Supine 12/27/21 16:00 Pulse Oximetry 98 12/27/21 16:00 Oxygen Delivery Method Room Air 12/27/21 16:00 Oxygen Flow Rate 0 12/27/21 16:00 Pain Level 9 12/27/21 16:00
--- NOTE | 2021-12-27 16:30 | DI.RAD_ITS ---
Exam(s) XR LUMBAR SPINE COMPLETE EXAM: XR LUMBAR SPINE COMPLETE CLINICAL HISTORY: Back pain with radiculopathy. TECHNIQUE: 2D digital imaging was performed. COMPARISON: No exams were available for comparison FINDINGS: Five views No evidence of fracture, listhesis, or pars defects. No disc space narrowing. No facet degenerative change. Sacroiliac joints appear unremarkable. No significant scoliosis. No osseous lesions. Bon e density normal. IMPRESSION: No significant radiographic findings. DATA REPOSITORY: RADIATION DOSE DELIVERED:
[2021-12-27 16:41] LABS: Bilirubin Negative (Negative); Blood Negative (Negative); Clarity Clear (Clear); Glucose Negative (Negative); Ketones Negative (Negative); Leukocyte Esterase Negative (Negative); Nitrite Negative (Negative); Specific Gravity >= 1.030 (1.005-1.025); Urobilinogen 0.2 EU/dL (Up TO 0.2)
[2021-12-27] MEDS: diazePAM 5 MG TAB PO (16:45)
--- NOTE | 2021-12-27 17:54 | DI.VRAD_ITS ---
PROCEDURE INFORMATION: Exam: XR Lumbosacral Spine Exam date and time: 12/27/2021 5:08 PM Age: 41 years old Clinical indication: Low back pain TECHNIQUE: Imaging protocol: XR of the lumbosacral spine. Views: 4 or 5 views. COMPARISON: CR XR sacrum coccyx 10/07/2018 11:08 AM FINDINGS: Bones/joints: Five lumbar type vertebral bodies identified. Normal lumbar lordosis is maintained. Vertebral body heights and intervertebral disc spaces are preserved. No acute fracture or static listhesis. No pars fracture identified on oblique views. Soft tissues: Cholecystectomy clips. IMPRESSION: Unremarkable radiographs of the lumbar spine. Dictated and Authenticated by: Alexis Pereira MD. Ordering:KEEGAN Fair MD
[2021-12-27] MEDS: Gabapentin 300 MG CAP PO (18:05)
[2021-12-27] MEDS: Acetaminophen 500 MG TAB 1000 MG PO (18:05)
[2021-12-27] MEDS: Lidocaine 5% Patch 1 PATCH TP (19:32)
[2021-12-27] MEDS: Ketorolac 30 MG/ML VIAL IM (19:32)
== END 2021-12-27 19:33 | disposition home or self-care (01) ==
PROVIDERS: Emergency Provider Registered Nurse Emergency; PCP Nurse Practitioner Family
DX: M54.42 Lumbago with sciatica, left side (principal); R30.0 Dysuria
CPT/HCPCS: 81025; 96372; 99284; 72110; 81003; 99283; J1885

== ENCOUNTER 2021-12-28 12:02 | Emergency (ER) | payer OTHER, SELFPAY ==
[2021-12-28 12:07] VITALS: BP 126/66; PULSE 81; RESP 18; TEMP 36.6; O2SAT 97
--- NOTE | 2021-12-28 13:11 | NUR.NOTE ---
Nursing Note: Referral faxed to DI for left extremity US for December 30. Leg pain. Follow up ED. Zee Valle
[2021-12-28] MEDS: Ketorolac 60 MG/2 ML VIAL IM (13:23)
[2021-12-28] MEDS: Cyclobenzaprine 10 MG TAB PO (13:23)
--- NOTE | 2021-12-28 13:33 | ED.GENADUL_ITS ---
Discharge Plan Disposition Patient Disposition: HOME Discharge Details Clinical Impression: Lumbago with sciatica, left side Primary Care Provider: Savannah Ozuna ED Provider: Manny Bee Home Meds and New Rx's Prescriptions: New cyclobenzaprine 7.5 mg tablet 7.5 mg PO TID PRNQty: 8 0RF Continued calcium carbonate-vitamin D3 500 mg(1,250mg) -400 unit tablet 1 tab PO BID 0RF magnesium 250 mg tablet 250 mg PO DAILY 0RF propranolol 120 mg capsule,extended release 24hr 120 mg PO DAILY 0RF gabapentin 100 mg capsule 300 mg PO QHS 0RF Nurtec ODT 75 mg tablet,disintegrating 75 mg PO ONCE PRN (Reason: migraine headache) Qty: 15 3RF Rx Instructions: As a single dose. No more than 1 dose in 24 hours. fluoxetine [Prozac] 20 mg capsule 30 mg PO DAILY 0RF multivitamin tablet 1 tab PO DAILY 0RF cholecalciferol (vitamin D3) 2,000 unit tablet 2,000 unit PO DAILY 0RF vitamin B complex [B Complex 1] tablet 1 tab PO DAILY 0RF lamotrigine [Lamictal] 200 mg tablet 400 mg PO DAILY 0RF hydroxyzine HCl 50 mg tablet 50 mg PO QHS 0RF naproxen 250 mg tablet 250 mg PO BID PRN (Reason: pain) Qty: 30 3RF Rx Instructions: Take as needed for headaches. No more than 2-3 times per week. Emgality Pen 120 mg/mL pen injector 120 mg subcut ONCE Qty: 1 5RF rizatriptan 10 mg tablet See Rx Instructions PO .COMPLEX Qty: 9 2RF Rx Instructions: take 1 tab at onset of headache; if no relief may repeat 1 tab after at least 2 hrs; max = 2 tabs/24 hr PO omeprazole 20 MG tablet,delayed release (DR/EC) 40 mg PO DAILY 0RF zolpidem [Ambien CR] 12.5 mg tablet,ext release multiphase 12.5 mg PO HS 0RF naltrexone 50 mg Tablet 100 mg PO QHS 0RF Discharge Instructions Instructions: Lumbar Radiculopathy (ED) Additional Instructions: Gentle stretching as tolerated. Warm and/or cool compresses every 2 hours for 20 minutes. You may increase your gabapentin as we discussed, 300 mg 3 times a day. Motrin 800 mg every 8 hours. Flexeril as directed, this medication may cause drowsiness. Please watch for new or worsening symptoms and return to the ER for any concerns. Please contact your primary care provider on Thursday to discuss your ER visit, need for prescription of gabapentin, likely referral to outpatient physical therapy and or MRI Discharge Data Discharge Date/Time-TO BE ENTERED AT DEPARTURE: 12/28/21 13:45 Medical Decision Making 41-year-old female who has had left-sided lumbar pain for the past few days with radiculopathy down the left leg, seen in the ER yesterday for evaluation, x-ray negative at that time. Today she reports the pain is actually improving but now has some paresthesias down the left leg. Denies fever, IV drug use, midline point tenderness, rash, weakness, saddle paresthesias, bowel or bladder incontinence and/or retention. She appears well, nontoxic, neurologically intact. No signs of cauda equina, spinal abscess, etc. We discussed her concerns. I was able to be sure that she can get an ultrasound on Thursday, unfortunately by calling the ultrasound department today they do not have anyone to make the schedule. We discussed that I can provide her a prescription for a muscle relaxer which she does not currently have. I can also give her a single dose of Flexeril and Toradol here in the ER. We discussed her gabapentin, she typically takes 300 mg once a day and we did discuss that this can be increased to 300 mg 3 times a day to see if this gets initial improvement of her radiculopathy. It appears as though yesterday a CT has been discussed and we once again discussed the CT today. She understands the risks and benefits of radiation, limitations of CT versus MRI, and at this time because there has been no trauma, again declines CT imaging. We discussed that MRI is likely the gold standard here. Because there is no true neurologic emergency here in the ER now, emergent transfer to [facility] and emergent MRI is not indicated. We discussed signs and symptoms to watch for in length that would require emergent MRI and immediate return to our ER. Patient reported moderate relief with Flexeril and Toradol and is requesting discharge. She remains neurologically intact. No evidence of foot drop, she is able to ambulate without difficulty. Patient and family have no additional questions or concerns and are comfortable with discharge at this time. Strict discharge and return precautions were once again provided. We once again discussed the importance of contacting her primary care provider on Thursday to discuss her ongoing symptoms, the potential for outpatient referral to specialty clinic, PT, and/or MRI if indicated. This documentation was generated using [employer] system, please disregard any oddities of phrase or misspellings. Medical Records Medical records reviewed: Yes I reviewed the patient's medical records. HPI General Mode of arrival: ambulatory . Date/Time Provider Initiated Documentation: 12/28/21 12:16 . Limitations to Documentation: no limitations . Information obtained by: patient and family . HPI Narrative: This is a 41-year-old female, past medical history that includes GERD, depression, obesity, who was actually seen in the ER yesterday for a lumbar radiculopathy, presents to the ER for reevaluation today reporting difficulty following the instructions given to her yesterday, and also noting some left leg tingling that began around 1:00 today. She actually reports that the pain is moderately improved when compared to yesterday. She states that she contacted the ultrasound team but is unable to make an appointment. She states that she was told to take muscle relaxers but does not have a prescription for them. She also states that she was told to increase her gabapentin dose but she is concerned to do so. She denies additional injury since her last visit. She denies fever, saddle paresthesias, bowel or bladder incontinence or retention, focal leg weakness or numbness. Reports that she is getting shooting discomfort from her left lower back and down her left leg, it feels like nerve pain, and it is associated with tingling. She denies history of IV drug use. Reports yesterday she could barely walk but today she is able to fully bear weight just slower than usual because of discomfort. Reports her pain is moderate. Worse with movement Related Data Home Medications Medication Instructions Recorded Confirmed omeprazole 20 mg tablet,delayed 40 mg PO DAILY 12/24/13 12/28/21 release cholecalciferol (vitamin D3) 50 2,000 unit PO DAILY 01/12/19 12/28/21 mcg (2,000 unit) tablet fluoxetine 20 mg capsule (Prozac) 30 mg PO DAILY 01/12/19 12/28/21 multivitamin 1 tab PO DAILY 01/12/19 12/28/21 vitamin B complex (B Complex 1) 1 tab PO DAILY 01/12/19 12/28/21 calcium carbonate 500 mg-vitamin 1 tab PO BID 02/14/19 12/28/21 D3 10 mcg (400 unit) tablet lamotrigine 200 mg tablet 400 mg PO DAILY tab 02/14/19 12/28/21 (Lamictal) magnesium 250 mg tablet 250 mg PO DAILY 02/14/19 12/28/21 zolpidem 12.5 mg tablet,extended 12.5 mg PO HS tab 02/14/19 12/28/21 release,multiphase (Ambien CR) naproxen 250 mg tablet 250 mg PO BID PRN #30 tab 07/26/20 12/28/21 hydroxyzine HCl 50 mg tablet 50 mg PO QHS 08/20/20 12/28/21 propranolol 120 mg 120 mg PO DAILY cap 06/04/21 12/28/21 capsule,extended release 24 hr galcanezumab-gnlm 120 mg/mL 120 mg SUBCUT ONCE #1 ml 09/09/21 12/28/21 subcutaneous pen injector (Emgality Pen) gabapentin 100 mg capsule 300 mg PO QHS cap 11/25/21 12/28/21 rimegepant 75 mg disintegrating 75 mg PO ONCE PRN #15 tab 11/25/21 12/28/21 tablet (Nurtec ODT) rizatriptan 10 mg tablet See Rx Instructions PO .COMPLEX #9 11/26/21 12/28/21 tab naltrexone 50 mg tablet 100 mg PO QHS 12/27/21 12/28/21 cyclobenzaprine 7.5 mg tablet 7.5 mg PO TID PRN #8 tab 12/28/21 Previous Rx's Medication Instructions Recorded naproxen 250 mg tablet 250 mg PO BID PRN #30 tab 07/26/20 galcanezumab-gnlm 120 mg/mL 120 mg SUBCUT ONCE #1 ml 09/09/21 subcutaneous pen injector (Emgality Pen) rimegepant 75 mg disintegrating 75 mg PO ONCE PRN #15 tab 11/25/21 tablet (Nurtec ODT) rizatriptan 10 mg tablet See Rx Instructions PO .COMPLEX #9 11/26/21 tab cyclobenzaprine 7.5 mg tablet 7.5 mg PO TID PRN #8 tab 12/28/21 Allergies Allergy/AdvReac Type Severity Reaction Status Date / Time Penicillins Allergy Intermediate Hives Unverified 12/28/21 12:13 aripiprazole [From Abilify] AdvReac Hyperactivi Verified 12/28/21 12:13 ty General Stated Complaint: Nk/Back Pain BENIGNO: 3 Review of Systems Constitutional Constitutional: Denies fever(s) and Denies weakness ENT Ears, Nose, Mouth, and Throat: Denies neck pain Cardiovascular Cardiovascular: Denies chest pain and Denies dyspnea Respiratory Respiratory: Denies dyspnea Gastrointestinal Gastrointestinal: Denies abdominal pain, Denies nausea and Denies vomiting Musculoskeletal Musculoskeletal: Reports back pain, Denies deformity, Denies neck pain, Denies numbness, Reports stiffness and Reports tingling Integumentary/Breasts Skin/Breast: Denies rash Neurologic Neurologic: Denies numbness, Reports tingling and Denies weakness PFSH All Active Problems Lumbago with sciatica, left side (Acute) Headache, migraine (Chronic) Sleep apnea (Acute) Chest pain (Acute) Epigastric abdominal pain (Acute) Postop check (Acute) Chronic migraine (Acute) Abnormal auditory perception (Acute) Hypertension (Chronic) Gastroesophageal reflux disease without esophagitis (Acute) Xanthoma of eyelid (Acute) Cholelithiasis (Acute) Bipolar disorder (Acute) Headache, chronic migraine without aura (Acute) TMJ (temporomandibular joint syndrome) (Acute) Medical History Acne Chronic GERD Coccydynia Depression Dyshidrotic eczema Eczema Fatigue History of meningitis Hypotension Irregular periods Low back pain Menorrhagia Nausea & vomiting Obesity Onychomycosis MAYKEL (obstructive sleep apnea) Surgical History H/O tubal ligation Hx of bariatric surgery 01/2018 S/P laparoscopic cholecystectomy (~08/2019) Family History Father Hypertension Atrial fibrillation Mother Hyperlipidemia Depression Migraines Anxiety Maternal Grandfather Chronic headaches Other Cancer Social History Smoking/Tobacco Use Status: Former Tobacco Use Smoking risk assessment performed?: Yes Alcohol Intake: former Drug use: Never Substance use type: does not use Do you feel safe at home: Yes Do you feel safe in your relationship?: Yes Exam Const General: cooperative, healthy appearing, comfortable and no acute distress Orientation: alert, awake and oriented x3 [facility] Head: normal to inspection, normocephalic and atraumatic Eyes Conjunctivae: conjunctivae normal Neck Neck: normal visual inspection, full ROM, no meningeal signs, trachea midline and supple Resp Effort & Inspection: normal respiratory effort and able to speak in complete sentences Auscultation: clear to auscultation bilaterally Cardio Rate: regular rate Rhythm: regular rhythm GI Palpation: soft and nontender Back/Spine/Pelvis Back: no CVA tenderness and back tenderness (Diffuse, mild, lumbar region) Thoracic/Lumbar Spine: pain with thoraco-lumbar ROM, No thoracic spinal tenderness, No lumbar spinal tenderness and straight leg raise positive (Left 15 degrees, negative right side) Sacroiliac joints: on the left tender to palpation Skin General skin exam: no rashes or lesions noted Neuro General: patient alert, patient awake, patient oriented x3, moves all extremities and no focal motor deficits Cognition: normal cognition Speech: speech normal Gait: normal gait Motor: muscle tone normal throughout and strength 5/5 throughout Sensory Exam: no sensory deficits noted DTR's: Rt Patellar: 2+, Lt Patellar: 2+, Rt Ankle: 2+ and Lt Ankle: 2+ Extrem General: normal to inspection, full ROM, capillary refill normal, no pedal edema and no calf tenderness Psych Appearance: grossly normal Mental Status: mental status grossly normal Course Vital Signs Vital signs: Vital Signs Temperature 36.6 C 12/28/21 12:07 Pulse 81 12/28/21 12:07 Respiratory Rate 18 12/28/21 12:07 Blood Pressure 126/66 12/28/21 12:07 Pulse Oximetry 97 12/28/21 12:07 Temperature 36.6 C 12/28/21 12:07 Temperature Source Temporal Artery Scan 12/28/21 12:07 Pulse 81 12/28/21 12:07 Respiratory Rate 18 12/28/21 12:07 Respiratory Effort Non-Labored 12/28/21 12:12 Blood Pressure 126/66 12/28/21 12:07 Blood Pressure Position Sitting 12/28/21 12:07 Pulse Oximetry 97 12/28/21 12:07 Oxygen Delivery Method Room Air 12/28/21 12:07 Oxygen Flow Rate 0 12/28/21 12:07 Pain Level 8 12/28/21 13:24
[2021-12-28 13:47] VITALS: BP 108/60; PULSE 64; RESP 16; TEMP 36.6; O2SAT 98
--- NOTE | 2021-12-31 11:11 | NUR.NOTE ---
Nursing Note: Per radiology patient was a no show for her booked ultrasound appointment. Zee Valle
== END 2021-12-28 13:45 | disposition home or self-care (01) ==
PROVIDERS: Emergency Provider Physician Assistant; PCP Nurse Practitioner Family
DX: M54.42 Lumbago with sciatica, left side (principal)
CPT/HCPCS: 96372; 99284; 99283; J1885

== ENCOUNTER 2022-01-03 10:21 | Emergency (ER) | payer OTHER, SELFPAY ==
[2022-01-03 10:27] VITALS: BP 134/78; PULSE 71; RESP 16; TEMP 36; O2SAT 97
--- NOTE | 2022-01-03 11:19 | ED.GENADUL_ITS ---
Discharge Plan Disposition Patient Disposition: HOME Condition: Stable Discharge Details Clinical Impression: Lumbago with sciatica, left side Primary Care Provider: Savannah Ozuna ED Provider: Dany Gallardo Home Meds and New Rx's Prescriptions: New prednisone 50 mg tablet 50 mg PO DAILY Qty: 5 0RF Continued calcium carbonate-vitamin D3 500 mg(1,250mg) -400 unit tablet 1 tab PO BID 0RF magnesium 250 mg tablet 250 mg PO DAILY 0RF propranolol 120 mg capsule,extended release 24hr 120 mg PO DAILY 0RF gabapentin 100 mg capsule 300 mg PO QHS 0RF Nurtec ODT 75 mg tablet,disintegrating 75 mg PO ONCE PRN (Reason: migraine headache) Qty: 15 3RF Rx Instructions: As a single dose. No more than 1 dose in 24 hours. fluoxetine [Prozac] 20 mg capsule 30 mg PO DAILY 0RF multivitamin tablet 1 tab PO DAILY 0RF cholecalciferol (vitamin D3) 2,000 unit tablet 2,000 unit PO DAILY 0RF vitamin B complex [B Complex 1] tablet 1 tab PO DAILY 0RF lamotrigine [Lamictal] 200 mg tablet 400 mg PO DAILY 0RF hydroxyzine HCl 50 mg tablet 50 mg PO QHS 0RF naproxen 250 mg tablet 250 mg PO BID PRN (Reason: pain) Qty: 30 3RF Rx Instructions: Take as needed for headaches. No more than 2-3 times per week. Emgality Pen 120 mg/mL pen injector 120 mg subcut ONCE Qty: 1 5RF rizatriptan 10 mg tablet See Rx Instructions PO .COMPLEX Qty: 9 2RF Rx Instructions: take 1 tab at onset of headache; if no relief may repeat 1 tab after at least 2 hrs; max = 2 tabs/24 hr PO omeprazole 20 MG tablet,delayed release (DR/EC) 40 mg PO DAILY 0RF zolpidem [Ambien CR] 12.5 mg tablet,ext release multiphase 12.5 mg PO HS 0RF cyclobenzaprine 7.5 mg tablet 7.5 mg PO TID PRNQty: 8 0RF Discharge Instructions Additional Instructions: If you develop any fever chills, saddle anesthesia, inability to move lower extremities, or severe worsening of discomfort please return immediately to the emergency department for reassessment. Otherwise continue activity as tolerated and follow-up with your primary care provider if not improving in the next week. Referrals: Savannah Ozuna [Primary Care Provider] - (As needed for reassessment or if not improving) Discharge Data Discharge Date/Time-TO BE ENTERED AT DEPARTURE: 01/03/22 11:32 Medical Decision Making Negative DVT ultrasound LOW risk for ABDOMINAL AORTIC ANEURYSM, CAUDA EQUINA SYNDROME, EPIDURAL MASS LESION, SPINAL STENOSIS, OR HERNIATED DISK CAUSING SEVERE STENOSIS, thus I consider the discharge disposition reasonable. We have discussed the diagnosis and risks, and we agree with discharging home to follow-up with their primary doctor. We also discussed returning to the Emergency Department immediately if new or worsening symptoms occur. We have discussed the symptoms which are most concerning (e.g., saddle anesthesia, urinary or bowel incontinence or retention, changing or worsening pain) that necessitate immediate return. Patient states some improvement versus initial appointment but continuing to have low back pain. Given that patient is having radiculopathy will attempt prednisone burst to see if this helps otherwise patient to continue medication. Patient given more Flexeril as she states that is helping her slightly but not completely. Patient to follow-up with primary care provider for reassessment. After discussion of diagnosis and plan of care patient has no further needs, questions, or concerns and states clear understanding to return to the emergency department for any worsening symptoms. HPI General Mode of arrival: ambulatory . Date/Time Provider Initiated Documentation: 01/03/22 10:45 . Limitations to Documentation: no limitations . Information obtained by: patient . History of Present Illness 41 year old F presents to the emergency department with the chief complaint of Back pain with radiation down left leg. PT here for ultrasound results., described as moderate, with intensity rated at 7. Quality is described as aching and sharp, and is localized to the back. Patient extremity. Patient started experiencing this week(s) (1) and it has been constant. improves with Rest improves symptom(s), Movement worsens symptoms . Patient notes no other symptoms.. Patient did receive the following treatments prior to arrival, NSAID Related Data Home Medications Medication Instructions Recorded Confirmed omeprazole 20 mg tablet,delayed 40 mg PO DAILY 12/24/13 01/03/22 release cholecalciferol (vitamin D3) 50 2,000 unit PO DAILY 01/12/19 01/03/22 mcg (2,000 unit) tablet fluoxetine 20 mg capsule (Prozac) 30 mg PO DAILY 01/12/19 01/03/22 multivitamin 1 tab PO DAILY 01/12/19 01/03/22 vitamin B complex (B Complex 1) 1 tab PO DAILY 01/12/19 01/03/22 calcium carbonate 500 mg-vitamin 1 tab PO BID 02/14/19 01/03/22 D3 10 mcg (400 unit) tablet lamotrigine 200 mg tablet 400 mg PO DAILY tab 02/14/19 01/03/22 (Lamictal) magnesium 250 mg tablet 250 mg PO DAILY 02/14/19 01/03/22 zolpidem 12.5 mg tablet,extended 12.5 mg PO HS tab 02/14/19 01/03/22 release,multiphase (Ambien CR) naproxen 250 mg tablet 250 mg PO BID PRN #30 tab 07/26/20 01/03/22 hydroxyzine HCl 50 mg tablet 50 mg PO QHS 08/20/20 01/03/22 propranolol 120 mg 120 mg PO DAILY cap 06/04/21 01/03/22 capsule,extended release 24 hr galcanezumab-gnlm 120 mg/mL 120 mg SUBCUT ONCE #1 ml 09/09/21 01/03/22 subcutaneous pen injector (Emgality Pen) gabapentin 100 mg capsule 300 mg PO QHS cap 11/25/21 01/03/22 rimegepant 75 mg disintegrating 75 mg PO ONCE PRN #15 tab 11/25/21 01/03/22 tablet (Nurtec ODT) rizatriptan 10 mg tablet See Rx Instructions PO .COMPLEX #9 11/26/21 01/03/22 tab cyclobenzaprine 7.5 mg tablet 7.5 mg PO TID PRN #8 tab 01/03/22 prednisone 50 mg tablet 50 mg PO DAILY #5 tab 01/03/22 Previous Rx's Medication Instructions Recorded naproxen 250 mg tablet 250 mg PO BID PRN #30 tab 07/26/20 galcanezumab-gnlm 120 mg/mL 120 mg SUBCUT ONCE #1 ml 09/09/21 subcutaneous pen injector (Emgality Pen) rimegepant 75 mg disintegrating 75 mg PO ONCE PRN #15 tab 11/25/21 tablet (Nurtec ODT) rizatriptan 10 mg tablet See Rx Instructions PO .COMPLEX #9 11/26/21 tab cyclobenzaprine 7.5 mg tablet 7.5 mg PO TID PRN #8 tab 01/03/22 prednisone 50 mg tablet 50 mg PO DAILY #5 tab 01/03/22 Allergies Allergy/AdvReac Type Severity Reaction Status Date / Time Penicillins Allergy Intermediate Hives Unverified 01/03/22 10:32 aripiprazole [From Abilify] AdvReac Hyperactivi Verified 01/03/22 10:32 ty General Stated Complaint: Recheck BENIGNO: 5 Review of Systems Constitutional Constitutional: Denies chills and Denies fever(s) Cardiovascular Cardiovascular: Denies chest pain and Denies dyspnea on exertion Respiratory Respiratory: Denies cough and Denies dyspnea on exertion Gastrointestinal Gastrointestinal: Denies abdominal pain, Denies change in bowel habits, Denies diarrhea, Denies nausea and Denies vomiting Genitourinary Genitourinary: Denies urinary incontinence Musculoskeletal Musculoskeletal: Reports as per HPI and Reports back pain Neurologic Neurologic: Denies sensory deficit PFSH All Active Problems Lumbago with sciatica, left side (Acute) Headache, migraine (Chronic) Sleep apnea (Acute) Chest pain (Acute) Epigastric abdominal pain (Acute) Postop check (Acute) Chronic migraine (Acute) Abnormal auditory perception (Acute) Hypertension (Chronic) Gastroesophageal reflux disease without esophagitis (Acute) Xanthoma of eyelid (Acute) Cholelithiasis (Acute) Bipolar disorder (Acute) Headache, chronic migraine without aura (Acute) TMJ (temporomandibular joint syndrome) (Acute) Medical History Acne Chronic GERD Coccydynia Depression Dyshidrotic eczema Eczema Fatigue History of meningitis Hypotension Irregular periods Low back pain Menorrhagia Nausea & vomiting Obesity Onychomycosis MAYKEL (obstructive sleep apnea) Surgical History H/O tubal ligation Hx of bariatric surgery 01/2018 S/P laparoscopic cholecystectomy (~08/2019) Family History Father Hypertension Atrial fibrillation Mother Hyperlipidemia Depression Migraines Anxiety Maternal Grandfather Chronic headaches Other Cancer Social History Smoking/Tobacco Use Status: Former Tobacco Use Smoking risk assessment performed?: Yes Alcohol Intake: former Drug use: Never Substance use type: does not use Do you feel safe at home: Yes Do you feel safe in your relationship?: Yes Exam Const General: cooperative and no acute distress Orientation: alert, awake and oriented x3 Resp Effort & Inspection: normal respiratory effort and able to speak in complete sentences Cardio Rate: regular rate Rhythm: regular rhythm Pulses: posterior tibial pulses present Back/Spine/Pelvis Thoracic/Lumbar Spine: pain with thoraco-lumbar ROM and thoraco-lumbar ROM limited Neuro General: patient alert, patient awake and patient oriented x3 Extrem Left lower extremity: lower leg Details: normal to inspection; Negative for no erythema, no tenderness, no localized swelling and edema noted and ankle Details: no edema; Negative for no tenderness Course Vital Signs Vital signs: Vital Signs Temperature 36 C L 01/03/22 10:27 Pulse 71 01/03/22 10:27 Respiratory Rate 16 01/03/22 10:27 Blood Pressure 134/78 01/03/22 10:27 Pulse Oximetry 97 01/03/22 10:27 Temperature 36 C L 01/03/22 10:27 Temperature Source Skin 01/03/22 10:27 Pulse 71 01/03/22 10:27 Respiratory Rate 16 01/03/22 10:27 Respiratory Effort 01/03/22 10:27 Blood Pressure 134/78 01/03/22 10:27 Blood Pressure Position Sitting 01/03/22 10:27 Pulse Oximetry 97 01/03/22 10:27 Oxygen Delivery Method Room Air 01/03/22 10:27 Oxygen Flow Rate 0 01/03/22 10:27 Pain Level 7 01/03/22 10:27
== END 2022-01-03 11:32 | disposition home or self-care (01) ==
PROVIDERS: Emergency Provider Nurse Practitioner Family; PCP Nurse Practitioner Family
DX: M54.42 Lumbago with sciatica, left side (principal)
CPT/HCPCS: 99283

== ENCOUNTER 2023-06-24 12:29 | Inpatient (IN) | payer BC, SELFPAY ==
[2023-06-24] VITALS (50 sets, daily range): BP systolic 91–148; BP diastolic 46–107; PULSE 77–101; RESP 9–29; TEMP 36.4–37; O2SAT 86–99
--- NOTE | 2023-06-24 12:30 | RT.EKG_ITS ---
APPROVED REPORT Exam: Resting ECG Reason for Exam: dizzy Patient Location: E HR:95 bpm ECG Measurements Heart Rate 95 AXIS AZ 171 P 34 QRSd 90 QRS 6 QT 371 T 222 QTc 468 Conclusion Sinus rhythm...normal P axis, V-rate 60- 99 Low voltage, precordial leads...precordial leads <1.0mV Physician: no stemi
--- NOTE | 2023-06-24 12:48 | W.ED.GENAD ---
Discharge Plan Disposition Patient Disposition: Admit to [facility] Condition: Good Discharge Details Chief Complaint: GenMedical Clinical Impression: Pneumonia, Anemia, Acute hypokalemia, Fatigue Primary Care Provider: Savannah Ozuna ED Provider: Noe Cline Home Meds and New Rx's Prescriptions: No Action calcium carbonate-vitamin D3 500 mg(1,250mg) -400 unit tablet 1 tab PO BID magnesium 250 mg tablet 250 mg PO DAILY propranolol 120 mg capsule,extended release 24hr 120 mg PO DAILY olanzapine 5 mg tablet 5 mg PO QHS gabapentin 100 mg capsule See Rx Instructions PO QHS Rx Instructions: 600 am, 600 noon, 900 pm fluoxetine [Prozac] 20 mg capsule 30 mg PO DAILY multivitamin tablet 1 tab PO DAILY cholecalciferol (vitamin D3) 2,000 unit tablet 2,000 unit PO DAILY vitamin B complex [B Complex 1] tablet 1 tab PO DAILY lamotrigine [Lamictal] 200 mg tablet 400 mg PO DAILY hydroxyzine HCl 50 mg tablet 50 mg PO QHS naproxen 250 mg tablet 250 mg PO BID PRN (Reason: pain) Qty: 30 3RF Rx Instructions: Take as needed for headaches. No more than 2-3 times per week. rizatriptan 10 mg tablet See Rx Instructions PO .COMPLEX Qty: 9 2RF Rx Instructions: take 1 tab at onset of headache; if no relief may repeat 1 tab after at least 2 hrs; max = 2 tabs/24 hr PO Emgality Pen 120 mg/mL pen injector See Rx Instructions .ROUTE .COMPLEX Qty: 1 11RF Dose Instruction: ADMINISTER 1 ML UNDER THE SKIN 1 TIME Rx Instructions: ADMINISTER 1 ML UNDER THE SKIN 1 TIME omeprazole 20 MG tablet,delayed release (DR/EC) 40 mg PO DAILY zolpidem [Ambien CR] 12.5 mg tablet,ext release multiphase 12.5 mg PO HS cyclobenzaprine 7.5 mg tablet 7.5 mg PO TID PRNQty: 8 0RF Medical Decision Making 42-year-old female with a past medical history of hypertension, bipolar, who presents today for evaluation of weakness, mild dizziness, mild cough, nausea, 1 episode of vomiting for last 3 to 4 days. Patient states that over the last 3 to 4 days the symptoms have been going on. Whenever she gets up and exerts herself she feels lightheaded, she feels slightly dizzy, and this is improved with rest. She denies any headache. Aside for feeling mildly dizzy she denies any syncope. She denies any previous history of stroke. She states that she has had migraines before but they would not bring about atypical symptoms like this. She denies any dark or tarry stools. She denies any vaginal bleeding. No other complaints at this time. No other modifying factors. Exam demonstrates a slightly pale female, normal neurologic exam, horizontal nystagmus is present. No rotatory or vertical nystagmus. Concern for electrolyte abnormality, dehydration or anemia. Will evaluate for this, monitor closely and reassess. 3:44 PM Patient's laboratory work-up has returned, no white count, hemoglobin is 7.4, MCV is 64, concerning for chronic GI bleed. Hemoccult was performed and is questionably minimally positive. Certainly no melena on exam though. D-dimer was elevated, CTA was ordered, unfortunately was notably poor contrasted component, and several visualization of the pulmonary vasculature was notably limited. There is evidence of posterior basal segment infiltrate in the lungs on the right. We will start azithromycin for potential treatment of pneumonia. Potassium is also low at 2.8, magnesium normal. Will replace the potassium. Troponin normal, proBNP normal. Thyroid function normal. COVID flu and RSV are negative. We will give a unit of PRBCs. Because of the complexity of the patient's multiple medical problems I do feel that admission is indicated. Additionally she is hypoxic at 88% on room air right now, and is saturating well on 2 L. We will hold off on repeat CTA until she has been rehydrated and then tomorrow determine if she does benefit from repeat imaging. Discussed all this with the hospitalist. Dr. Torres agrees with the plan. I have extensively reviewed the treatment plan with the patient. I have addressed all patient concerns at this time. I have also discussed the plan with the admitting physician and they agree with the current assessment and plan and have agreed to assume responsibility for the patient. All parties demonstrate verbal understanding and agreement with our assessment and plan at this time. The documentation in this chart was dictated using [employer] dictation software. Please excuse any dictation errors. FINDINGS: CHEST: Lowermost lung bases are not included in the field of view of this study. PULMONARY ARTERIES: Less than optimal bolus injection and elevated right hemidiaphragm. There is no obvious intraluminal filling defects to suggest acute pulmonary emboli.Also no evidence of aortic dissection. LUNGS: There is some this as an infiltrate in the right lower lobe posterior basal segment, this just above the elevated right hemidiaphragm no associated pleural effusion. There are no ominous lung nodules. No pleural effusion on either side. No findings in trachea and mainstem bronchi. MEDIASTINUM: There is no hilar nor mediastinal adenopathy. Visualized thyroid unremarkable. CARDIAC: Size upper normal. No pericardial effusion.Caliber of the thoracic aorta is within normal limits. No dissection. There is no significant shift of the interventricular septum. PARTIALLY VISUALIZED UPPERMOST ABDOMEN: Hepatic steatosis. OSSEOUS: No significant osseous lesions.. IMPRESSION: 1. Less than optimal study due to less than optimal bolus timing does not include the entire lower lobe lung bases. 2. No obvious acute pulmonary emboli 3. Elevated right hemidiaphragm. Area of infiltrate in the right lower lobe posterior basal segment. No pleural effusions. HPI General Date/Time Provider Initiated Documentation: 06/24/23 12:36. HPI Narrative: 42-year-old female with a past medical history of hypertension, bipolar, who presents today for evaluation of weakness, mild dizziness, mild cough, nausea, 1 episode of vomiting for last 3 to 4 days. Patient states that over the last 3 to 4 days the symptoms have been going on. Whenever she gets up and exerts herself she feels lightheaded, she feels slightly dizzy, and this is improved with rest. She denies any headache. Aside for feeling mildly dizzy she denies any syncope. She denies any previous history of stroke. She states that she has had migraines before but they would not bring about atypical symptoms like this. She denies any dark or tarry stools. She denies any vaginal bleeding. No other complaints at this time. No other modifying factors. Related Data Home Medications Medication Instructions Recorded Confirmed omeprazole 20 mg tablet,delayed 40 mg PO DAILY 12/24/13 02/27/22 release cholecalciferol (vitamin D3) 50 2,000 unit PO DAILY 01/12/19 02/27/22 mcg (2,000 unit) tablet fluoxetine 20 mg capsule (Prozac) 30 mg PO DAILY 01/12/19 01/03/22 multivitamin 1 tab PO DAILY 01/12/19 02/27/22 vitamin B complex (B Complex 1 1 tab PO DAILY 01/12/19 02/27/22 tablet) calcium carbonate 500 mg-vitamin 1 tab PO BID 02/14/19 02/27/22 D3 10 mcg (400 unit) tablet lamotrigine 200 mg tablet 400 mg PO DAILY 02/14/19 02/27/22 (Lamictal) magnesium 250 mg tablet 250 mg PO DAILY 02/14/19 02/27/22 zolpidem 12.5 mg tablet,extended 12.5 mg PO HS 02/14/19 02/27/22 release,multiphase (Ambien CR) naproxen 250 mg tablet 250 mg PO BID PRN pain #30 tabs 07/26/20 02/27/22 hydroxyzine HCl 50 mg tablet 50 mg PO QHS 08/20/20 02/27/22 propranolol 120 mg 120 mg PO DAILY 06/04/21 02/27/22 capsule,extended release 24 hr cyclobenzaprine 7.5 mg tablet 7.5 mg PO TID PRN #8 tabs 01/03/22 02/27/22 gabapentin 100 mg capsule See Rx Instructions PO QHS 02/27/22 02/27/22 olanzapine 5 mg tablet 5 mg PO QHS 02/27/22 02/27/22 rizatriptan 10 mg tablet See Rx Instructions PO .COMPLEX #9 08/21/22 tabs galcanezumab-gnlm 120 mg/mL See Rx Instructions .Route 09/23/22 subcutaneous pen injector .COMPLEX #1 mL (Emgality Pen) Previous Rx's Medication Instructions Recorded naproxen 250 mg tablet 250 mg PO BID PRN pain #30 tabs 07/26/20 cyclobenzaprine 7.5 mg tablet 7.5 mg PO TID PRN #8 tabs 01/03/22 rizatriptan 10 mg tablet See Rx Instructions PO .COMPLEX #9 08/21/22 tabs galcanezumab-gnlm 120 mg/mL See Rx Instructions .Route 09/23/22 subcutaneous pen injector .COMPLEX #1 mL (Emgality Pen) Allergies Allergy/AdvReac Type Severity Reaction Status Date / Time Penicillins Allergy Intermediate Hives Unverified 02/27/22 14:38 aripiprazole [From Abili] AdvReac Hyperactivi Verified 02/27/22 14:38 ty General Stated Complaint: GenMedical BENIGNO: 3 PFSH All Active Problems (Updated 06/24/23 @ 15:47 by Noe Cline DO) Pneumonia (Acute) Anemia (Chronic) Acute hypokalemia (Acute) Fatigue (Acute) Headache, migraine (Chronic) Sleep apnea (Acute) Chest pain (Acute) Epigastric abdominal pain (Acute) Postop check (Acute) Chronic migraine (Acute) Abnormal auditory perception (Acute) Hypertension (Chronic) Gastroesophageal reflux disease without esophagitis (Acute) Xanthoma of eyelid (Acute) Cholelithiasis (Acute) Bipolar disorder (Acute) Headache, chronic migraine without aura (Acute) TMJ (temporomandibular joint syndrome) (Acute) Medical History Acne Chronic GERD Coccydynia Depression Dyshidrotic eczema Eczema Fatigue History of meningitis Hypotension Irregular periods Low back pain Menorrhagia Nausea & vomiting Obesity Onychomycosis MAYKEL (obstructive sleep apnea) Surgical History H/O tubal ligation Hx of bariatric surgery 01/2018 S/P laparoscopic cholecystectomy (~08/2019) Family History Father Hypertension Atrial fibrillation Mother Hyperlipidemia Depression Migraines Anxiety Maternal Grandfather Chronic headaches Other Cancer Social History Smoking/Tobacco Use Status: Former Tobacco Use Smoking risk assessment performed?: Yes Alcohol Intake: former Drug use: Never Substance use type: does not use Do you feel safe at home: Yes Do you feel safe in your relationship?: Yes Exam Narrative Exam Narrative: 1.Const: Well-nourished, Well-developed, appearing stated age 2.Eyes: PERRL, no conjunctival injection, and symmetrical lids. 3.ENT: Atraumatic external nose and ears. Moist MM. Neck: Symmetric, trachea midline, No thyromegaly. 4.CVS: +S1/S2, No murmurs or gallops. Peripheral pulses 2+ and equal in all extremities. Brisk capillary refill in all extremities. 5.RESP: Unlabored respiratory effort. Clear to auscultation bilaterally. No wheezes rales or rhonchi 6.GI: Soft, Nontender/Nondistended, No hepatosplenomegaly. No guarding or rebound. 7.MSK: Normocephalic/Atraumatic, Extremities w/o deformity or ttp No cyanosis or clubbing, Normal movement of all extremities 8.Skin: Warm, Dry. No rashes or lesions. 9.Neuro: sports medicine physician II-XII grossly intact. Sensation grossly intact, no focal neurologic deficits. All 6 cardinal planes of vision are fully intact. No evidence of rotatory or vertical nystagmus. Mild corneal, nystagmus. The patient demonstrated a normal [id number], good dexterity. There was no evidence of dysdiadochokinesia. Patient was able to ambulate without difficulty. There was no wide-based gait. Romberg testing was normal. Snja-xf-syto testing was normal. Sensation was intact bilaterally as well as muscle strength bilaterally for all extremities. Patient was able to verbalize butter cup with no slurring, or miss pronunciation. 10.Psych: (AAO) x3. Appropriate mood and affect Course Vital Signs Vital signs: Vital Signs Temperature 36.5 C 06/24/23 12:34 Pulse 101 H 06/24/23 12:34 Blood Pressure 134/60 06/24/23 12:34 Pulse Oximetry 96 06/24/23 12:34 Temperature 36.5 C 06/24/23 12:34 Temperature Source Skin 06/24/23 12:34 Pulse 101 H 06/24/23 12:34 Respiratory Effort Normal 06/24/23 12:39 Blood Pressure 134/60 06/24/23 12:34 Blood Pressure Position Sitting 06/24/23 12:34 Pulse Oximetry 96 06/24/23 12:34 Oxygen Delivery Method Room Air 06/24/23 12:34 Oxygen Flow Rate 0 06/24/23 12:34 Pain Level 0 06/24/23 12:34
[2023-06-24 13:10] LABS: Abs Immature Grans 0.02 10^3/uL (0.0-0.06); Absolute Basophil Count 0.08 10^3/uL (0.0-0.2); Absolute Eosinophil Count 0.29 10^3/uL (0.0-0.7); Absolute Monocyte Count 0.72 10^3/uL (0.1-0.8); Absolute Neutrophil Count 5.96 10^3/uL (1.2-6.7); BE (Venous) 8 mmol/L (-2-3); Basophils % 0.9; Eosinophils % 3.3; HCO3 (Venous) 32 mmol/L (23-28); HCT 27.3 % (36.0-46.0); HGB 7.4 g/dL (11.2-15.7); Immature Grans % 0.2; Lymphocytes % 19.4; MCH 17.2 pg (27.0-33.0); MCHC 27.1 % (32.0-36.0); MCV 64 fL (80-95); Monocytes % 8.2; O2 Sat (Venous) 88 %; Platelet Count 397 10^3/uL (130-400); RDW 22.1 % (11.7-14.6); RDW-SD 49.1 fL; TCO2 (Venous) 31 mmol/L (24-29); WBC 8.77 10^3/uL (4.4-10.8); pCO2 (Venous) 47 mmHg (41-51); pH (Venous) 7.45 (7.31-7.41); pO2 (Venous) 54 mmHg
[2023-06-24] MEDS: Meclizine 25 MG TAB 50 MG PO (13:24)
[2023-06-24] MEDS: Normal Saline 1,000 ML 1000 ML IV (13:25)
[2023-06-24 13:39] LABS: Anisocytosis 2+; Diff Comment RBC Morph Reviewed; Hypochromasia 2+; Microcytosis 2+
[2023-06-24 13:41] LABS: ALT 35 U/L (14-59); AST 39 U/L (15-37); Albumin 2.7 g/dL (3.4-5.0); Alkaline Phosphatase 114 U/L (46-116); Anion Gap 7.2 mmol/L (3-11); BUN 10 mg/dL (7-18); Bilirubin, Total 0.3 mg/dL (0.2-1.0); CO2 31.8 mmol/L (21.0-32.0); CREATININE 0.7 mg/dL (0.55-1.02); Calcium 8.7 mg/dL (8.5-10.1); Chloride 98 mmol/L (98-107); Estimated GFR 109.98 (mL/min/1.73m2); Glucose 132 mg/dL (74-106); Lipase 18 U/L (16-77); NT-proBNP 141 pg/mL (<300); Sodium 137 mmol/L (136-145); TSH (W/Ref FT4) 0.85 uIU/mL (0.36-3.74); Total Protein 7.6 g/dL (6.4-8.2); Troponin I < 50 ng/L (<or=60)
[2023-06-24 13:46] LABS: Potassium 2.8 mmol/L (3.5-5.1)
[2023-06-24 13:47] LABS: D-Dimer 729 ng/mlFEU (<500)
[2023-06-24 13:54] LABS: COVID-19 PCR Negative (Negative); Influenza A PCR Negative (Negative); Influenza B PCR Negative (Negative); RSV PCR Negative (Negative)
--- NOTE | 2023-06-24 14:00 | DI.CT_ITS ---
Exam(s) CT CHEST PE CTA EXAM: CT CHEST PE CTA CLINICAL HISTORY: elevated dimer, r/o pe. TECHNIQUE: Imaging Protocol: CT angiography of the chest was performed using pulmonary embolus meg col. Multi planar reconstructions were performed. CONTRAST MATERIAL: Intravenous: Omnipaque 350 Contrast volume: 100 cc COMPARISON: CT CT THORAX ABD/PEL CTA from 11/11/2019 FINDINGS: CHEST: Lowermost lung bases are not included in the field of view of this study. PULMONARY ARTERIES: Less than optimal bolus injection and elevated right hemidiaphragm. There is no obvious intraluminal filling defects to suggest acute pulmonary emboli.Also no evidence of aortic dis section. LUNGS: There is some this as an infiltrate in the right lower lobe posterior basal segment, this just above the elevated right hemidiaphragm no associated pleural effusion. There are no ominous lung no dules. No pleural effusion on either side. No findings in trachea and mainstem bronchi. MEDIASTINUM: There is no hilar nor mediastinal adenopathy. Visualized thyroid unremarkable. CARDIAC: Size upper normal. No pericardial effusion.Caliber of the thoracic aorta is within normal l imits. No dissection. There is no significant shift of the interventricular septum. PARTIALLY VISUALIZED UPPERMOST ABDOMEN: Hepatic steatosis. OSSEOUS: No significant osseous lesions.. IMPRESSION: 1. Less than optimal study due to less than optimal bolus timing does not include the entire lower lo be lung bases. 2. No obvious acute pulmonary emboli 3. Elevated right hemidiaphragm. Area of infiltrate in the right lower lobe posterior basal segment. No pleural effusions. Discussed with ER physician RADIATION DOSE DELIVERED: 571.54mGy.cm Total DLP DATA REPOSITORY: All CT scans at this facility are submitted to the National Radiology Data Registry (NRDR) Dose Index Registry (DIR) with the [employer] (A[employer]). RADIATION OPTIMIZATION: All CT scans at this facility use at least one of these dose optimization te chniques: automated exposure control; mA and/or kV adjustment per patient size (includes targeted exa ms where dose is matched to clinical indication); or iterative reconstruction.
[2023-06-24 14:13] LABS: Source Nasopharynx
[2023-06-24] MEDS: Potassium Chloride 20 MEQ TABCR 40 MEQ PO (14:22)
[2023-06-24] MEDS: POTASSIUM CHLORIDE 20 MEQ/100 ML BAG 50 MEQ IVPB (14:23)
[2023-06-24] MEDS: Normal Saline - Diluent 50 ML VIAL IJ (14:51)
[2023-06-24] MEDS: Omnipaque 350 MG/ML 500 ML BTL-Imaging package IJ (14:51)
[2023-06-24 15:58] LABS: Bilirubin Negative (Negative); Blood Trace-lysed (Negative); Clarity Clear (Clear); Glucose Negative (Negative); Ketones Negative (Negative); Leukocyte Esterase Negative (Negative); Nitrite Negative (Negative); Urobilinogen 0.2 mg/dL (Up to 0.2); pH 6.5 (5-8)
[2023-06-24 16:08] LABS: Bacteria Few HPF (Negative); C & S Indicated? No; Casts Negative LPF (Negative); Crystals Negative HPF (Negative); Epithelial Cells Few HPF (Negative); Mucus Negative (Negative); RBC 0-2 HPF (0-2); WBC 0-2 HPF (0-5)
--- NOTE | 2023-06-24 16:08 | HPE_ITS ---
Date of service: 06/24/23 Time of Service: 16:09 Assessment and Plan Assessment and plan (1) Pneumonia: Status: Acute Assessment and plan: Shortness of breath and hypoxia, SPO2 > 88% on [address]: 1. Less than optimal study due to less than optimal bolus timing does not include the entire lower lobe lung bases. 2. No obvious acute pulmonary emboli 3. Elevated right hemidiaphragm.? Area of infiltrate in the right lower lobe posterior basal segment.? No pleural effusions. WBC 22.1 Started Azithromycin and Ceftriaxone (2) Anemia: Status: Chronic Assessment and plan: Hgb 7.4 One unit of blood in the ED, recheck H&H ~ 2000h (3) Fatigue: Status: Acute (4) Hypertension: Status: Chronic Assessment and plan: Continue home meds monitor BP (5) Gastroesophageal reflux disease without esophagitis: Status: Acute Assessment and plan: Stable, continue home meds (6) Acute hypokalemia: Status: Acute Assessment and plan: Potassium 2.8, repleted, recheck @ 2000h Telemetry History of Present Illness History of Present Illness Chief Complaint: Dizzy Narrative: This is 42-year-old female with a past medical history of hypertension, bipolar, who presented to the [facility] ED 06/24 for evaluation of weakness, mild dizziness, mild cough, nausea, 1 episode of vomiting for last 3 to 4 days.? Patient stated that over the last 3 to 4 days the symptoms have been ongoing.? Whenever she got up and exerted herself she felt lightheaded, she felt slightly dizzy, and improved with rest.? She denied any headache.? Aside from feeling mildly dizzy she denied syncope.? She denied any previous history of stroke.? She has a history of migraines before but not associated with these symptoms.? She denied any dark or tarry stools.? She denied any vaginal bleeding.? No other complaints.? No other modifying factors. In the ED, no white count, hemoglobin is 7.4, MCV is 64, concerning for chronic GI bleed.? Hemoccult was performed, minimally positive.? D-dimer was elevated, CTA of the chest notably poor contrasted component, and visualization of the pulmonary vasculature was notably limited.? There is evidence of posterior basal segment infiltrate in the lungs on the right.?Azithromycin was started for potential treatment of pneumonia.? Potassium was low at 2.8, magnesium normal.? Potassium was repleted.? Troponin normal, proBNP normal.? Thyroid function normal.? COVID flu and RSV negative.? Vital signs stable, not tachycardic, no hypotension, afebrile. She received one unit of PRBCs.? She was hypoxic at 88% on room air, and saturated well on 2 L.?Patient is admitted to the medical floor stable for further testing and treatment. Patient is a full code. Review of Systems All systems reviewed & are unremarkable except as noted in HPI and below PFSH All Active Problems (Updated 06/24/23 @ 15:47 by Noe Cline DO) Pneumonia (Acute) Anemia (Chronic) Acute hypokalemia (Acute) Fatigue (Acute) Headache, migraine (Chronic) Sleep apnea (Acute) Chest pain (Acute) Epigastric abdominal pain (Acute) Postop check (Acute) Chronic migraine (Acute) Abnormal auditory perception (Acute) Hypertension (Chronic) Gastroesophageal reflux disease without esophagitis (Acute) Xanthoma of eyelid (Acute) Cholelithiasis (Acute) Bipolar disorder (Acute) Headache, chronic migraine without aura (Acute) TMJ (temporomandibular joint syndrome) (Acute) Medical History Acne Chronic GERD Coccydynia Depression Dyshidrotic eczema Eczema Fatigue History of meningitis Hypotension Irregular periods Low back pain Menorrhagia Nausea & vomiting Obesity Onychomycosis MAYKEL (obstructive sleep apnea) Surgical History H/O tubal ligation Hx of bariatric surgery 01/2018 S/P laparoscopic cholecystectomy (~08/2019) Family History Father Hypertension Atrial fibrillation Mother Hyperlipidemia Depression Migraines Anxiety Maternal Grandfather Chronic headaches Other Cancer Social History Smoking/Tobacco Use Status: Former Tobacco Use Smoking risk assessment performed?: Yes Alcohol Intake: former Drug use: Never Substance use type: does not use Housing: house Do you feel safe at home: Yes Do you feel safe in your relationship?: Yes Meds Allergies and Home Medications Allergies Allergy/AdvReac Type Severity Reaction Status Date / Time Penicillins Allergy Intermediate Hives Unverified 06/24/23 17:46 aripiprazole [From [facility]] AdvReac Hyperactivi Verified 06/24/23 17:46 ty Home Medications Medication Instructions Recorded Confirmed Type omeprazole 20 mg tablet,delayed 40 mg PO DAILY 12/24/13 06/24/23 History release cholecalciferol (vitamin D3) 50 2,000 unit PO DAILY 01/12/19 06/24/23 History mcg (2,000 unit) tablet fluoxetine 20 mg capsule (Prozac) 30 mg PO DAILY 01/12/19 06/24/23 History multivitamin 1 tab PO DAILY 01/12/19 06/24/23 History vitamin B complex (B Complex 1 1 tab PO DAILY 01/12/19 06/24/23 History tablet) calcium carbonate 500 mg-vitamin 1 tab PO BID 02/14/19 06/24/23 History D3 10 mcg (400 unit) tablet lamotrigine 200 mg tablet 400 mg PO DAILY 02/14/19 06/24/23 History (Lamictal) magnesium 250 mg tablet 250 mg PO DAILY 02/14/19 06/24/23 History zolpidem 12.5 mg tablet,extended 12.5 mg PO HS 02/14/19 06/24/23 History release,multiphase (Ambien CR) naproxen 250 mg tablet 250 mg PO BID PRN pain #30 tabs 07/26/20 06/24/23 Rx hydroxyzine HCl 50 mg tablet 50 mg PO PRN PRN 08/20/20 06/24/23 History propranolol 120 mg 120 mg PO DAILY 06/04/21 06/24/23 History capsule,extended release 24 hr cyclobenzaprine 7.5 mg tablet 7.5 mg PO TID PRN #8 tabs 01/03/22 02/27/22 Rx gabapentin 100 mg capsule See Rx Instructions PO QHS 02/27/22 06/24/23 History olanzapine 5 mg tablet 5 mg PO QHS 02/27/22 02/27/22 History rizatriptan 10 mg tablet See Rx Instructions PO .COMPLEX #9 08/21/22 06/24/23 Rx tabs galcanezumab-gnlm 120 mg/mL See Rx Instructions .Route 09/23/22 Rx subcutaneous pen injector .COMPLEX #1 mL (Emgality Pen) Exam Narrative Exam Narrative: 1.Const: Well-nourished, Well-developed, appearing stated age 2.Eyes: PERRL, no conjunctival injection, and symmetrical lids. 3.ENT: Atraumatic external nose and ears. Moist MM. Neck: Symmetric, trachea midline, No thyromegaly. 4.CVS: +S1/S2, No murmurs or gallops. Peripheral pulses 2+ and equal in all extremities. Brisk capillary refill in all extremities. 5.RESP: Unlabored respiratory effort. Clear to auscultation bilaterally. No wheezes rales or rhonchi 6.GI: Soft, Nontender/Nondistended, No hepatosplenomegaly. No guarding or cristina ound. 7.MSK: Normocephalic/Atraumatic, Extremities w/o deformity No cyanosis or clubbing, Normal movement of all extremities 8.Skin: Warm, Dry. No rashes or lesions. 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 Sensation grossly intact, no focal neurologic deficits. All 6 cardinal planes of vision are fully intact. No evidence of rotatory or vertical nystagmus. Mild corneal, nystagmus. The patient demonstrated a normal ipvmmq-[id number], good dexterity. There was no evidence of dysdiadochokinesia. Patient was able to ambulate without difficulty. There was no wide-based gait. Romberg testing was normal. Pblk-cr-wkmh testing was normal. Sensation was intact bilaterally as well as muscle strength bilaterally for all extremities. Patient was able to verbalize butter cup with no slurring, or miss pronunciation. 10.Psych: (AAO) x3. Appropriate mood and affect Results Labs 06/24/23 13:04 06/24/23 13:04 Labs: Laboratory Results - last 24 hr 06/24/23 06/24/23 06/24/23 12:51 13:04 13:04 WBC 8.77 RBC 4.30 Hgb 7.4 L Hct 27.3 L MCV 64 L MCH 17.2 L MCHC 27.1 L RDW 22.1 H Plt Count 397 MPV 8.0 Immature Gran % 0.2 Neutrophils % 68.0 Lymphocytes % 19.4 Monocytes % 8.2 Eosinophils % 3.3 Basophils % 0.9 Nucleated RBC % 0.0 Absolute Neutrophils 5.96 Absolute Lymphocytes 1.70 Absolute Monocytes 0.72 Absolute Eosinophils 0.29 Absolute Basophils 0.08 RBC Morphology See Below Hypochromasia 2+ Anisocytosis 2+ Microcytosis 2+ D-Dimer VBG pH VBG pCO2 VBG pO2 VBG HCO3 VBG Total CO2 VBG O2 Saturation VBG Base Excess Sodium 137 Potassium 2.8 L* Chloride 98 Carbon Dioxide 31.8 Anion Gap 7.2 BUN 10 Creatinine 0.7 Est GFR (CKD-EPI 2020) 109.98 Glucose 132 H Calcium 8.7 Magnesium 2.0 Total Bilirubin 0.3 AST 39 H ALT 35 Alkaline Phosphatase 114 Troponin I < 50 NT-Pro-B Natriuret Pep 141 Total Protein 7.6 Albumin 2.7 L Lipase 18 TSH 0.85 Urine Color Urine Clarity Urine pH Ur Specific [place] Urine Protein Urine Ketones Urine Blood Urine Nitrite Urine Bilirubin Urine Urobilinogen Ur Leukocyte Esterase Urine RBC Urine WBC Ur Epithelial Cells Urine Crystals Urine Bacteria Urine Casts Urine Mucus Ur Culture Indicated? Urine Glucose COVID-19 Source Nasopharynx SARS-CoV-2 (PCR) Negative Influenza Type A (PCR) Negative Influenza Type B (PCR) Negative RSV (PCR) Negative Crossmatch 06/24/23 06/24/23 06/24/23 13:04 13:04 14:55 WBC RBC Hgb Hct MCV MCH MCHC RDW Plt Count MPV Immature Gran % Neutrophils % Lymphocytes % Monocytes % Eosinophils % Basophils % Nucleated RBC % Absolute Neutrophils Absolute Lymphocytes Absolute Monocytes Absolute Eosinophils Absolute Basophils RBC Morphology Hypochromasia Anisocytosis Microcytosis D-Dimer 729 H VBG pH 7.45 H VBG pCO2 47 VBG pO2 54 VBG HCO3 32 H VBG Total CO2 31 H VBG O2 Saturation 88 VBG Base Excess 8 H Sodium Potassium Chloride Carbon Dioxide Anion Gap BUN Creatinine Est GFR (CKD-EPI 2020) Glucose Calcium Magnesium Total Bilirubin AST ALT Alkaline Phosphatase Troponin I NT-Pro-B Natriuret Pep Total Protein Albumin Lipase TSH Urine Color Yellow Urine Clarity Clear Urine pH 6.5 Ur Specific [place] 1.010 Urine Protein Negative Urine Ketones Negative Urine Blood Trace-lysed H Urine Nitrite Negative Urine Bilirubin Negative Urine Urobilinogen 0.2 Ur Leukocyte Esterase Negative Urine RBC 0-2 Urine WBC 0-2 Ur Epithelial Cells Few Urine Crystals Negative Urine Bacteria Few Urine Casts Negative Urine Mucus Negative Ur Culture Indicated? No Urine Glucose Negative COVID-19 Source SARS-CoV-2 (PCR) Influenza Type A (PCR) Influenza Type B (PCR) RSV (PCR) Crossmatch 06/24/23 16:00 WBC RBC Hgb Hct MCV MCH MCHC RDW Plt Count MPV Immature Gran % Neutrophils % Lymphocytes % Monocytes % Eosinophils % Basophils % Nucleated RBC % Absolute Neutrophils Absolute Lymphocytes Absolute Monocytes Absolute Eosinophils Absolute Basophils RBC Morphology Hypochromasia Anisocytosis Microcytosis D-Dimer VBG pH VBG pCO2 VBG pO2 VBG HCO3 VBG Total CO2 VBG O2 Saturation VBG Base Excess Sodium Potassium Chloride Carbon Dioxide Anion Gap BUN Creatinine Est GFR (CKD-EPI 2020) Glucose Calcium Magnesium Total Bilirubin AST ALT Alkaline Phosphatase Troponin I NT-Pro-B Natriuret Pep Total Protein Albumin Lipase TSH Urine Color Urine Clarity Urine pH Ur Specific [place] Urine Protein Urine Ketones Urine Blood Urine Nitrite Urine Bilirubin Urine Urobilinogen Ur Leukocyte Esterase Urine RBC Urine WBC Ur Epithelial Cells Urine Crystals Urine Bacteria Urine Casts Urine Mucus Ur Culture Indicated? Urine Glucose COVID-19 Source SARS-CoV-2 (PCR) Influenza Type A (PCR) Influenza Type B (PCR) RSV (PCR) Crossmatch See Detail Last Vital Signs Temp 36.5 C 06/24/23 12:34 Pulse 101 H 06/24/23 12:34 Resp 16 06/24/23 12:54 BP 134/60 06/24/23 12:34 Pulse Ox 96 06/24/23 12:34 Time Spent Time spent with Patient: 55-74 minutes Time was spent: preparing to see the patient(eg.review tests), obtaining and/or reviewing separately otained hiistory, ordering medications,tests, procedures, referring, communicating with other health prompt care rn, indepentently interpreting results, counseling the patient and care coordination
[2023-06-24] MEDS: Pantoprazole 40 MG VIAL IVP (16:17)
[2023-06-24] MEDS: cefTRIAXone 1 GM/50 ML BAG IVPB (16:22)
[2023-06-24] MEDS: AZITHROMYCIN 500 MG in Normal Saline 250 ML 250 MG IVPB (17:29)
[2023-06-24 20:02] LABS: HCT 26.9 % (36.0-46.0); HGB 7.6 g/dL (11.2-15.7)
[2023-06-24] MEDS: LORazepam 1 MG TAB PO (20:05)
[2023-06-24 20:11] LABS: Anion Gap 3.8 mmol/L (3-11); BUN 7 mg/dL (7-18); CO2 31.2 mmol/L (21.0-32.0); CREATININE 0.6 mg/dL (0.55-1.02); Chloride 102 mmol/L (98-107); Estimated GFR 114.15 (mL/min/1.73m2); Glucose 117 mg/dL (74-106); Potassium 3.3 mmol/L (3.5-5.1); Sodium 137 mmol/L (136-145)
--- NOTE | 2023-06-24 20:36 | RESPIRATORY ---
RT Assessment Start: 06/24/23 19:56 Freq: .q shift and prn Status: Active Protocol: Document 06/24/23 20:10 RT.HOSM (Rec: 06/24/23 20:25 [email or web address] [id number]) RT Assessment Smoking History Smoking/Tobacco Use Status Former Tobacco Use Tobacco: How many years used 15 Quit Date 12/27/17 Tobacco Type cigarettes Cigarettes per Day 14 Years smoked 15 Smoking packs per day 0.5 OXYGEN HISTORY: Supplemental O2 At Rest 2.5 CPAP Can use home machine No: Has appointment for new sleep study DME/Compliance DME Margarito Current Respiratory Symptoms Current Respiratory Symptoms Cough,Shortness of breath, Wheezing Respiratory Breath Sounds Breath Sounds Any abnormal sounds, decreased breath sounds Pulse Rate <100 Respiratory Rate <18 Shortness of Breath At rest Respiratory Therapy Score Total 3 Assessment and Plan RT Treatment Protocol Lung Expansion Therapy Protocol Note Pt has no hx of lung disease. Pt does have MAYKEL but does not use CPAP; has new sleep study scheduled to obtain CPAP. Pt does currently vape everyday.
[2023-06-24] MEDS: Melatonin 3 MG TAB 9 MG PO (21:41)
[2023-06-24] MEDS: Gabapentin 600 MG TAB PO (21:41)
[2023-06-24] MEDS: Calcium 600mg/Vit D 200U TAB 1 TAB PO (21:41)
[2023-06-24] MEDS: OLANZapine 5 MG TAB PO (21:42)
[2023-06-24] MEDS: Normal Saline 1,000 ML 125 ML IV (22:06)
[2023-06-25] VITALS (10 sets, daily range): BP systolic 113–128; BP diastolic 66–88; PULSE 61–90; RESP 18–20; TEMP 36.2–36.9; O2SAT 93–99
[2023-06-25] MEDS: POTASSIUM CHLORIDE/0.9% NACL 1,000 ML 80 MEQ IV ×2 (00:44→12:03)
[2023-06-25] MEDS: Gabapentin 300 MG CAP PO ×2 (06:00→12:02)
[2023-06-25] MEDS: Omeprazole 20 MG CAPCR 40 MG PO (07:20)
[2023-06-25] MEDS: Propranolol 60 MG CAPCR 120 MG PO (08:30)
[2023-06-25 09:15] LABS: Anion Gap 5.9 mmol/L (3-11); BUN 7 mg/dL (7-18); CO2 29.1 mmol/L (21.0-32.0); CREATININE 0.6 mg/dL (0.55-1.02); Calcium 8.1 mg/dL (8.5-10.1); Chloride 104 mmol/L (98-107); Estimated GFR 114.15 (mL/min/1.73m2); Glucose 95 mg/dL (74-106); Magnesium 2.2 mg/dL (1.8-2.4); Potassium 3.5 mmol/L (3.5-5.1); Sodium 139 mmol/L (136-145)
[2023-06-25] MEDS: lamoTRIgine 100 MG TAB 400 MG PO (09:21)
[2023-06-25] MEDS: Calcium 600mg/Vit D 200U TAB 1 TAB PO ×2 (09:23→19:59)
[2023-06-25] MEDS: Multivitamin TAB 1 TAB PO (09:23)
[2023-06-25] MEDS: FLUoxetine 20 MG CAP 30 MG PO (09:23)
[2023-06-25 10:25] LABS: Abs Immature Grans 0.02 10^3/uL (0.0-0.06); Absolute Basophil Count 0.08 10^3/uL (0.0-0.2); Absolute Eosinophil Count 0.24 10^3/uL (0.0-0.7); Absolute Lymphocyte Count 2.06 10^3/uL (1.2-3.4); Absolute Monocyte Count 0.68 10^3/uL (0.1-0.8); Absolute Neutrophil Count 3.58 10^3/uL (1.2-6.7); Basophils % 1.2; Eosinophils % 3.6; HCT 26.6 % (36.0-46.0); HGB 7.5 g/dL (11.2-15.7); Immature Grans % 0.3; Lymphocytes % 30.9; MCH 18.5 pg (27.0-33.0); MCHC 28.2 % (32.0-36.0); MCV 66 fL (80-95); MPV 8.5 fL (8.0-11.0); Monocytes % 10.2; Neutrophils % 53.8; Platelet Count 386 10^3/uL (130-400); RBC 4.05 10^6/uL (3.93-5.22); RDW 22.6 % (11.7-14.6); RDW-SD 52.7 fL; WBC 6.66 10^3/uL (4.4-10.8)
[2023-06-25 10:31] LABS: Anisocytosis 3+; Diff Comment Diff Reviewed; Hypochromasia 2+; Microcytosis 2+; Polychromasia Present
[2023-06-25 11:28] LABS: Bilirubin Negative (Negative); Blood Trace-lysed (Negative); Clarity Sl Cloudy (Clear); Glucose Negative (Negative); Ketones Negative (Negative); Leukocyte Esterase Negative (Negative); Nitrite Negative (Negative); Specific Gravity 1.015 (1.005-1.025); Urobilinogen 0.2 mg/dL (Up to 0.2)
[2023-06-25 11:35] LABS: Epithelial Cells Many HPF (Negative); WBC 0-2 HPF (0-5)
[2023-06-25 11:36] LABS: Bacteria Few HPF (Negative); C & S Indicated? No/Sq. Contamination; Casts Negative LPF (Negative); Crystals Negative HPF (Negative); Mucus Negative (Negative)
--- NOTE | 2023-06-25 12:32 | PDOC.CMIN ---
Date of service: 06/25/23 Time of Service: 12:32 Care Management Initial Assmt Initial Assessment REASON FOR HOSPITALIZATION:: Pneumonia and anemia PREVIOUS FUNCTIONAL STATUS/SOCIAL/FAMILY SUPPORTS:: Nicole lives in [place], [place] with her Fidel. ADVANCE DIRECTIVES:: none on file Has patient been provided with info about the portal/API?: Yes Did the patient sign up for the portal?: Yes CODE STATUS:: Full Code INSURANCE COVERAGE / FINANCIAL ISSUES:: BC/BS PRIMARY CARE PHYSICIAN:: Savannah Ozuna POTENTIAL DISCHARGE NEEDS:: follow up with PCP and plan of care PATIENT/FAMILY EDUCATION NEEDS:: Review of discharge instructions, limitations, follow up plan, discuss Ask Me Three PFS All Active Problems (Updated 06/24/23 @ 15:47 by Noe Cline DO) Pneumonia (Acute) Anemia (Chronic) Acute hypokalemia (Acute) Fatigue (Acute) Headache, migraine (Chronic) Sleep apnea (Acute) Chest pain (Acute) Epigastric abdominal pain (Acute) Postop check (Acute) Chronic migraine (Acute) Abnormal auditory perception (Acute) Hypertension (Chronic) Gastroesophageal reflux disease without esophagitis (Acute) Xanthoma of eyelid (Acute) Cholelithiasis (Acute) Bipolar disorder (Acute) Headache, chronic migraine without aura (Acute) TMJ (temporomandibular joint syndrome) (Acute) Medical History Acne Chronic GERD Coccydynia Depression Dyshidrotic eczema Eczema Fatigue History of meningitis Hypotension Irregular periods Low back pain Menorrhagia Nausea & vomiting Obesity Onychomycosis MAYKEL (obstructive sleep apnea) Surgical History H/O tubal ligation Hx of bariatric surgery 01/2018 S/P laparoscopic cholecystectomy (~08/2019) Family History Father Hypertension Atrial fibrillation Mother Hyperlipidemia Depression Migraines Anxiety Maternal Grandfather Chronic headaches Other Cancer Social History Smoking/Tobacco Use Status: Former Tobacco Use Quit Date: 12/27/17 Tobacco: How many years used: 15 Smoking risk assessment performed?: Yes Alcohol Intake: former Drug use: Never Substance use type: does not use Housing: house Do you feel safe at home: Yes Do you feel safe in your relationship?: Yes
--- NOTE | 2023-06-25 14:28 | PDOC.CMIN ---
Date of service: 06/25/23 Time of Service: 14:28 Care Management Initial Assmt Initial Assessment REASON FOR HOSPITALIZATION:: Hypokalemia, anemia, hypoxia PREVIOUS FUNCTIONAL STATUS/SOCIAL/FAMILY SUPPORTS:: , resides in [place] with , Fidel. Independent at baseline in the community. CURRENT FUNCTIONAL STATUS:: Nicole was lying in bed, sleeping when CM attempted to meet with her. CM checked in with primary RN, Lourdes who reported Nicole had just fallen asleep after receiving her second unit of blood transfusion. CM did not disturb Nicole and will follow up with her tomorrow. ADVANCE DIRECTIVES:: None on file. Has patient been provided with info about the portal/API?: Yes Did the patient sign up for the portal?: Yes CODE STATUS:: Full Code INSURANCE COVERAGE / FINANCIAL ISSUES:: BC/BS [place] PRIMARY CARE PHYSICIAN:: Savannah Ozuna POTENTIAL DISCHARGE NEEDS:: Follow up appointments. PATIENT/FAMILY EDUCATION NEEDS:: Review of discharge instructions, discuss Ask Me Three. ANTICIPATED BARRIERS TO DISCHARGE:: None identified at this time. TRANSPORTATION:: Via private vehicle with family. PLAN:: Nicole continues to be closely monitored, anticipate she will return home when ready per MD, follow up with community providers and her plan of care as prescribed and transport via private vehicle with family. CM continues to follow. PFSH All Active Problems (Updated 06/24/23 @ 15:47 by Noe Cline DO) Pneumonia (Acute) Anemia (Chronic) Acute hypokalemia (Acute) Fatigue (Acute) Headache, migraine (Chronic) Sleep apnea (Acute) Chest pain (Acute) Epigastric abdominal pain (Acute) Postop check (Acute) Chronic migraine (Acute) Abnormal auditory perception (Acute) Hypertension (Chronic) Gastroesophageal reflux disease without esophagitis (Acute) Xanthoma of eyelid (Acute) Cholelithiasis (Acute) Bipolar disorder (Acute) Headache, chronic migraine without aura (Acute) TMJ (temporomandibular joint syndrome) (Acute) Medical History Acne Chronic GERD Coccydynia Depression Dyshidrotic eczema Eczema Fatigue History of meningitis Hypotension Irregular periods Low back pain Menorrhagia Nausea & vomiting Obesity Onychomycosis MAYKEL (obstructive sleep apnea) Surgical History H/O tubal ligation Hx of bariatric surgery 01/2018 S/P laparoscopic cholecystectomy (~08/2019) Family History Father Hypertension Atrial fibrillation Mother Hyperlipidemia Depression Migraines Anxiety Maternal Grandfather Chronic headaches Other Cancer Social History Smoking/Tobacco Use Status: Former Tobacco Use Quit Date: 12/27/17 Tobacco: How many years used: 15 Smoking risk assessment performed?: Yes Alcohol Intake: former Drug use: Never Substance use type: does not use Housing: house Do you feel safe at home: Yes Do you feel safe in your relationship?: Yes
--- NOTE | 2023-06-25 15:49 | W.PM.PROGNOT ---
Date of Service Date of service: 06/25/23 Time of Service: 14:00 Assessment and Plan Assessment and plan (1) Pneumonia: Status: Acute Assessment and plan: No shortness of breath, SPO2 96% on RA Chest CT: WBC down to 6.6 Started Azithromycin and Ceftriaxone, added vanco BC positive for gm positive rods (2) Anemia: Status: Chronic Assessment and plan: Hgb 7.5, transfused one unit, recheck up to 8.2 Monitor (3) Fatigue: Status: Acute Assessment and plan: Continues to feel fatigued, possibly will feel better tomorrow after blood transfusion (4) Hypertension: Status: Chronic Assessment and plan: Continue home meds monitor BP (5) Gastroesophageal reflux disease without esophagitis: Status: Acute Assessment and plan: Stable, continue home meds (6) Acute hypokalemia: Status: Acute Assessment and plan: Potassium 3.5 - monitor Telemetry - NSR 80-[address] Baeza Subjective Subjective Patient reports: no new complaints, pain is less, tolerating liquids well, tolerating a regular diet, voiding w/o difficulty and no bowel movement; denies diarrhea, blood in stool, nausea, vomiting, shortness of breath or afebrile Interval history since last seen: C/A Ox4, sitting at the side of the bed eating chocolates and chips, no complaints states she would like to go home, explained she has positive BC and further testing is needed, she agreed to remaining in the hospital. Exam Narrative Exam Narrative: Const: Well-nourished, Well-developed, appearing stated age, semi fowlers in bed, with iPad and chocolate and chips, and coca cola at the bedside, good appetite Eyes: PERRL, no conjunctival injection, and symmetrical lids. ENT: Atraumatic external nose and ears. Moist MM. Neck: Symmetric, trachea midline, No thyromegaly. CVS: +S1/S2, No murmurs or gallops. Peripheral pulses 2+ and equal in all extremities. Brisk capillary refill in all extremities. RESP: Unlabored respiratory effort. Clear to auscultation bilaterally. No wheezes rales or rhonchi GI: Soft, Nontender/Nondistended, No hepatosplenomegaly. No guarding or rebound. MSK: Normocephalic/Atraumatic, Extremities w/o deformity No cyanosis or clubbing, Normal movement of all extremities Skin: Warm, Dry. No rashes or lesions. Neuro: operations superintendent II-XII grossly intact. Sensation grossly intact, no focal neurologic deficits. Sensation intact bilaterally as well as muscle strength bilaterally for all extremities. Psych: (AAO) x3. Appropriate mood and affect Objective Last Vital Signs Temp 36.8 C 06/25/23 16:38 Pulse 86 06/25/23 16:38 Resp 20 06/25/23 16:38 BP 118/74 06/25/23 16:38 Pulse Ox 94 06/25/23 19:47 Laboratory Results - last 24 hr 06/24/23 06/24/23 06/24/23 16:00 19:47 19:47 WBC RBC Hgb 7.6 L Hct 26.9 L MCV MCH MCHC RDW Plt Count MPV Immature Gran % Neutrophils % Lymphocytes % Monocytes % Eosinophils % Basophils % Nucleated RBC % Absolute Neutrophils Absolute Lymphocytes Absolute Monocytes Absolute Eosinophils Absolute Basophils RBC Morphology Polychromasia Hypochromasia Anisocytosis Microcytosis Sodium 137 Potassium 3.3 L Chloride 102 Carbon Dioxide 31.2 Anion Gap 3.8 BUN 7 Creatinine 0.6 Est GFR (CKD-EPI 2020) 114.15 Glucose 117 H Calcium 8.0 L Magnesium Urine Color Urine Clarity Urine pH Ur Specific [place] Urine Protein Urine Ketones Urine Blood Urine Nitrite Urine Bilirubin Urine Urobilinogen Ur Leukocyte Esterase Urine RBC Urine WBC Ur Epithelial Cells Urine Crystals Urine Bacteria Urine Casts Urine Mucus Ur Culture Indicated? Urine Glucose Patient ABO/Rh O Positive Antibody Screen NEGATIVE Crossmatch See Detail 06/25/23 06/25/23 06/25/23 05:30 06:28 06:28 WBC 6.66 RBC 4.05 Hgb 7.5 L Hct 26.6 L MCV 66 L MCH 18.5 L MCHC 28.2 L RDW 22.6 H Plt Count 386 MPV 8.5 Immature Gran % 0.3 Neutrophils % 53.8 Lymphocytes % 30.9 Monocytes % 10.2 Eosinophils % 3.6 Basophils % 1.2 Nucleated RBC % 0.0 Absolute Neutrophils 3.58 Absolute Lymphocytes 2.06 Absolute Monocytes 0.68 Absolute Eosinophils 0.24 Absolute Basophils 0.08 RBC Morphology See Below Polychromasia Present Hypochromasia 2+ Anisocytosis 3+ Microcytosis 2+ Sodium 139 Potassium 3.5 Chloride 104 Carbon Dioxide 29.1 Anion Gap 5.9 BUN 7 Creatinine 0.6 Est GFR (CKD-EPI 2020) 114.15 Glucose 95 Calcium 8.1 L Magnesium 2.2 Urine Color Yellow Urine Clarity Sl Cloudy Urine pH 6.0 Ur Specific [place] 1.015 Urine Protein Negative Urine Ketones Negative Urine Blood Trace-lysed H Urine Nitrite Negative Urine Bilirubin Negative Urine Urobilinogen 0.2 Ur Leukocyte Esterase Negative Urine RBC 5-10 H Urine WBC 0-2 Ur Epithelial Cells Many Urine Crystals Negative Urine Bacteria Few Urine Casts Negative Urine Mucus Negative Ur Culture Indicated? No/Sq. Contamination Urine Glucose Negative Patient ABO/Rh Antibody Screen Crossmatch 06/25/23 17:25 WBC RBC Hgb 8.2 L Hct 29.3 L MCV MCH MCHC RDW Plt Count MPV Immature Gran % Neutrophils % Lymphocytes % Monocytes % Eosinophils % Basophils % Nucleated RBC % Absolute Neutrophils Absolute Lymphocytes Absolute Monocytes Absolute Eosinophils Absolute Basophils RBC Morphology Polychromasia Hypochromasia Anisocytosis Microcytosis Sodium Potassium Chloride Carbon Dioxide Anion Gap BUN Creatinine Est GFR (CKD-EPI 2020) Glucose Calcium Magnesium Urine Color Urine Clarity Urine pH Ur Specific [place] Urine Protein Urine Ketones Urine Blood Urine Nitrite Urine Bilirubin Urine Urobilinogen Ur Leukocyte Esterase Urine RBC Urine WBC Ur Epithelial Cells Urine Crystals Urine Bacteria Urine Casts Urine Mucus Ur Culture Indicated? Urine Glucose Patient ABO/Rh Antibody Screen Crossmatch Time Spent with Patient Time Spent with Patient: 25-34 minutes Time was spent: preparing to see the patient(eg.review tests), ordering medications,tests, procedures, referring, communicating with other health neonatal critical care nurse, indepentently interpreting results, counseling the patient and care coordination
--- NOTE | 2023-06-25 15:58 | CHAPLAIN ---
Nicole was sitting on the edge of her bed when I visited. She was pleasant and engaged in conversation. She is hoping to go home soon so she can get back to regular schedule and feels like she'll feel better at home. She is a former member of the [employer] in [facility]. Nicole said she doesn't attend any more because her didn't, but she know finds she enjoys being alone in the [place] provides her with the same comfort as going to [employer]levism. We talked about being in nature can make us feel connected to something larger than ourselves, especially when we live in a place like [place].
[2023-06-25] MEDS: AZITHROMYCIN 500 MG in Normal Saline 250 ML 250 MG IVPB (16:35)
[2023-06-25 17:28] LABS: HCT 29.3 % (36.0-46.0); HGB 8.2 g/dL (11.2-15.7)
[2023-06-25] MEDS: cefTRIAXone 1 GM/50 ML BAG IVPB (19:58)
[2023-06-25] MEDS: VANCOMYCIN/WATER (PEG) 1.5 GM/300 ML BAG IV (19:58)
[2023-06-25] MEDS: Gabapentin 600 MG TAB PO (20:06)
[2023-06-25] MEDS: LORazepam 1 MG TAB PO (20:06)
[2023-06-25] MEDS: OLANZapine 5 MG TAB PO (20:07)
[2023-06-25] MEDS: Melatonin 3 MG TAB 9 MG PO (20:07)
[2023-06-26] VITALS (7 sets, daily range): BP systolic 111–148; BP diastolic 50–110; PULSE 56–73; RESP 16–18; TEMP 36–37.2; O2SAT 92–100
[2023-06-26] MEDS: POTASSIUM CHLORIDE/0.9% NACL 1,000 ML 80 MEQ IV (00:34)
[2023-06-26] MEDS: VANCOMYCIN/WATER (PEG) 1.5 GM/300 ML BAG IV ×3 (04:14→20:47)
[2023-06-26] MEDS: Gabapentin 300 MG CAP PO ×2 (05:44→12:17)
[2023-06-26 06:50] LABS: Abs Immature Grans 0.01 10^3/uL (0.0-0.06); Absolute Basophil Count 0.09 10^3/uL (0.0-0.2); Absolute Eosinophil Count 0.32 10^3/uL (0.0-0.7); Absolute Lymphocyte Count 2.54 10^3/uL (1.2-3.4); Absolute Monocyte Count 0.64 10^3/uL (0.1-0.8); Absolute Neutrophil Count 4.61 10^3/uL (1.2-6.7); Basophils % 1.1; Eosinophils % 3.9; HCT 31.7 % (36.0-46.0); HGB 8.8 g/dL (11.2-15.7); Immature Grans % 0.1; Lymphocytes % 30.9; MCH 18.8 pg (27.0-33.0); MCHC 27.8 % (32.0-36.0); MCV 68 fL (80-95); MPV 8.6 fL (8.0-11.0); Monocytes % 7.8; Neutrophils % 56.2; Platelet Count 394 10^3/uL (130-400); RBC 4.69 10^6/uL (3.93-5.22); RDW 24.2 % (11.7-14.6); RDW-SD 57.2 fL; WBC 8.21 10^3/uL (4.4-10.8)
[2023-06-26 07:04] LABS: Anion Gap 7.1 mmol/L (3-11); BUN 10 mg/dL (7-18); CO2 26.9 mmol/L (21.0-32.0); CREATININE 0.7 mg/dL (0.55-1.02); Calcium 8.5 mg/dL (8.5-10.1); Chloride 103 mmol/L (98-107); Estimated GFR 109.98 (mL/min/1.73m2); Glucose 125 mg/dL (74-106); Magnesium 2.1 mg/dL (1.8-2.4); Potassium 4.2 mmol/L (3.5-5.1); Sodium 137 mmol/L (136-145)
[2023-06-26 07:21] LABS: Anisocytosis 2+; Diff Comment RBC Morph Reviewed; Hypochromasia 2+; Microcytosis 2+
[2023-06-26] MEDS: Omeprazole 20 MG CAPCR 40 MG PO (08:28)
[2023-06-26] MEDS: FLUoxetine 20 MG CAP 30 MG PO (08:28)
[2023-06-26] MEDS: Magnesium Gluconate 500 MG TAB 250 MG PO (08:28)
[2023-06-26] MEDS: Propranolol 60 MG CAPCR 120 MG PO (08:28)
[2023-06-26] MEDS: Vitamins B Comp w/C TAB 1 TAB PO (08:28)
[2023-06-26] MEDS: Multivitamin TAB 1 TAB PO (08:28)
[2023-06-26] MEDS: lamoTRIgine 100 MG TAB 400 MG PO (08:28)
[2023-06-26] MEDS: Calcium 600mg/Vit D 200U TAB 1 TAB PO ×2 (08:28→19:31)
--- NOTE | 2023-06-26 08:54 | RESPIRATORY ---
RT asked about the use of home oxygen, patient stated she does not use home oxygen and this is the first time ever being on oxygen. Pt does have history of sleep apnea and has a sleep study scheduled to get a machine.
[2023-06-26] MEDS: Normal Saline Flush 10 ML SYR (12:18)
--- NOTE | 2023-06-26 14:25 | PHA.REVIEW2 ---
Pharmacy Admission Review Admission Clinical Review Admission Pharmacy Review: (Updated 06/24/23 @ 15:47 by Noe Cline DO) Pneumonia (Acute) Acute hypokalemia (Acute) Fatigue (Acute) Gastroesophageal reflux disease without esophagitis (Acute) Penicillins Allergy (Intermediate, Unverified 06/24/23 17:46) Hives aripiprazole [From Abilify] Adverse Reaction (Verified 06/24/23 17:46) Hyperactivity Resuscitation Status Full Code Height 5 ft 5 in Weight 140.7 kg Pharmacy Admission Review Renal Dosing Renal Dosing: BUN 10 mg/dL (7-18) 06/26/23 06:10 Creatinine 0.7 mg/dL (0.55-1.02) 06/26/23 06:10 Medications needing adjustments: Reviewed (eCrCl >100 ml/min) List of meds needing interventions: None -- all dosed appropriately, vancomycin is currently being given at the maximum 24 hours dosage at 1500 q8h which should yield a trough ~13 and an AUC of 535, vanco monitoring is still a send out Anticoagulation Anticoagulation: Hgb 8.8 g/dL (11.2-15.7) L 06/26/23 06:10 Hct 31.7 % (36.0-46.0) L 06/26/23 06:10 Plt Count 394 10^3/uL (130-400) 06/26/23 06:10 Creatinine 0.7 mg/dL (0.55-1.02) 06/26/23 06:10 DVT Prophylaxis: Intervened (not ordered, although patient is young she is at moderate thrombosis risk given her wt -- will notify MD ) Opiate Usage Evaluate Pain Scale/Pains Meds: N/A Relevant Labs Relevant Labs: Sodium 137 mmol/L (136-145) 06/26/23 06:10 Potassium 4.2 mmol/L (3.5-5.1) 06/26/23 06:10 Chloride 103 mmol/L (98-107) 06/26/23 06:10 Magnesium 2.1 mg/dL (1.8-2.4) 06/26/23 06:10 Electrolytes, C-Reactive P, ESR: Reviewed (was hypokalemic on admission, stable now) DM Control DM Control: N/A Cardiac Review Cardiac Review: Troponin I < 50 ng/L (<or=60) 06/24/23 13:04 NT-Pro-B Natriuret Pep 141 pg/mL (<300) 06/24/23 13:04 BP, HR, EF%: Reviewed QTc Review QTc: Reviewed (QTc 468 on admission) IV to PO Switch IV Medications: Reviewed Home Meds Home Med List reviewed: Intervened Relevent Home Meds Not ordered & why?: A few changes on her home meds -- she started a new antipsychotic Rexulti on 06/17 (we don't have that on formulary... would need to be pt's own), clonazepam 0.5-1 mg HS prn added, fluoxetine dose should be 40 mg not 30, lamotrigine should be taken at HS, Vyvanse 70mg added, and her olanzapine was stopped in March and she was started on lurasidone instead. She also hasn't filled gabapentin since October so I removed that. notified. Current Meds Current Medication Order Review: Reviewed Pharmacy Antibiotic Review Pharmacy Antibiotic Activity: 48 hour review Comments: Ceftriaxone + Azithromycin day 2; Vancomycin added as blood cultures grew a gram + staph species (not aureus)
--- NOTE | 2023-06-26 14:26 | W.PM.PROGNOT ---
Date of Service Date of service: 06/26/23 Time of Service: 14:26 Assessment and Plan Assessment and plan (1) Pneumonia: Status: Acute Assessment and plan: No shortness of breath, SPO2 96% on RA WBC 8.21 Continue Azithromycin and Ceftriaxone, vanco d/c;d troph 11; daptomycin recommendation of pharmacist but we do not have enough in stock at the present time. BC positive for gm positive cocci, BC drawn again today, pending (2) Anemia: Status: Chronic Assessment and plan: Hgb 8.8 Monitor (3) Fatigue: Status: Acute Assessment and plan: Continues to feel fatigued (4) Hypertension: Status: Chronic Assessment and plan: Continue home meds monitor BP 120s/70s (5) Gastroesophageal reflux disease without esophagitis: Status: Acute Assessment and plan: Stable, continue home meds (6) Acute hypokalemia: Status: Acute Assessment and plan: Potassium 4.2 - monitor - IVF stopped Telemetry - NSR 80-90; telemetry dc'd discussed with Dr Carlos Subjective Subjective Patient reports: no new complaints, feels better, tolerating liquids well, tolerating a regular diet, bowel movement and afebrile; denies diarrhea, nausea or vomiting Interval history since last seen: Patient reports feeling tired, however states it is not unusual that she is tired with taking Gabapentin. She would like to go home, explained the importance of staying and receiving IV abx, patient agrees it is in her best interest and will stay. Exam Narrative Exam Narrative: Const: Well-nourished, Well-developed, appearing stated age, semi fowlers in bed, with iPad, drinking coca cola Eyes: PERRL, no conjunctival injection, and symmetrical lids. ENT: Atraumatic external nose and ears. Moist MM. Neck: Symmetric, trachea midline, No thyromegaly. CVS: +S1/S2, No murmurs or gallops. Peripheral pulses 2+ and equal in all extremities. Brisk capillary refill in all extremities. RESP: Unlabored respiratory effort. Clear to auscultation bilaterally. No wheezes rales or rhonchi GI: Soft, Nontender/Nondistended, No hepatosplenomegaly. No guarding or rebound. MSK: Normocephalic/Atraumatic, Extremities w/o deformity No cyanosis or clubbing, Normal movement of all extremities Skin: Warm, Dry. No rashes or lesions. Neuro: tool and equipment rental clerk II-XII grossly intact. Sensation grossly intact, no focal neurologic deficits. All 6 cardinal planes of vision are fully intact. No evidence of rotatory or vertical nystagmus. Mild corneal, nystagmus. The patient demonstrated a normal [id number], good dexterity. There was no vidence of dysdiadochokinesia. Sensation was intact bilaterally as well as muscle strength bilaterally for all extremities. Psych: (AAO) x3. Appropriate mood and affect Objective Last Vital Signs Temp 36.2 C L 06/26/23 10:59 Pulse 73 06/26/23 10:59 Resp 18 06/26/23 10:59 BP 133/80 06/26/23 10:59 Pulse Ox 94 06/26/23 10:59 Laboratory Results - last 24 hr 06/25/23 06/26/23 06/26/23 17:25 06:10 06:10 WBC 8.21 RBC 4.69 Hgb 8.2 L 8.8 L Hct 29.3 L 31.7 L MCV 68 L MCH 18.8 L MCHC 27.8 L RDW 24.2 H Plt Count 394 MPV 8.6 Immature Gran % 0.1 Neutrophils % 56.2 Lymphocytes % 30.9 Monocytes % 7.8 Eosinophils % 3.9 Basophils % 1.1 Nucleated RBC % 0.0 Absolute Neutrophils 4.61 Absolute Lymphocytes 2.54 Absolute Monocytes 0.64 Absolute Eosinophils 0.32 Absolute Basophils 0.09 RBC Morphology See Below Hypochromasia 2+ Anisocytosis 2+ Microcytosis 2+ Sodium 137 Potassium 4.2 Chloride 103 Carbon Dioxide 26.9 Anion Gap 7.1 BUN 10 Creatinine 0.7 Est GFR (CKD-EPI 2020) 109.98 Glucose 125 H Calcium 8.5 Magnesium 2.1 Time Spent with Patient Time Spent with Patient: 35-49 minutes Time was spent: preparing to see the patient(eg.review tests), ordering medications,tests, procedures, referring, communicating with other health medicare compliance auditor, indepentently interpreting results, counseling the patient and care coordination
[2023-06-26] MEDS: AZITHROMYCIN 500 MG in Normal Saline 250 ML 250 MG IVPB (16:38)
[2023-06-26] MEDS: Normal Saline Flush 10 ML SYR IVP (16:40)
--- NOTE | 2023-06-26 17:16 | PDOC.CMPRO ---
Date of service: 06/26/23 Time of Service: 17:16 Care Management Progress Note Progress Note Text Progress Note Text: S/O: Nicole was sitting up in bed when CM met with her. She stated that she is feeling better and would prefer to return home, although per MD, she is not yet medically cleared. Per report, her blood cultures are being repeated. She is agreeable to remaining overnight, but is hopeful that she will be able to return home tomorrow. CM will continue to follow. A: Lyndsey is a 42 year old female admitted to [facility] on 06/24/23 for hypokalemia, anemia, hypoxia. P: ?Nicole continues to be closely monitored, anticipate she will return home when ready per MD, follow up with community providers and her plan of care as prescribed and transport via private vehicle with family. CM continues to follow.
[2023-06-26] MEDS: cefTRIAXone 1 GM/50 ML BAG IVPB (19:31)
[2023-06-26] MEDS: LORazepam 1 MG TAB PO (20:57)
[2023-06-26] MEDS: OLANZapine 5 MG TAB PO (20:57)
[2023-06-26] MEDS: Melatonin 3 MG TAB 9 MG PO (20:57)
--- NOTE | 2023-06-27 | DI.CT_ITS ---
Exam(s) CT CHEST PE CTA EXAM: CT CHEST PE CTA CLINICAL HISTORY: Elevated DDimer, hypoxia. TECHNIQUE: Imaging Protocol: Axial CT angiography was performed with multi-slice acquisition and mu lti-planar reconstructions as well as axial, coronal and sagittal MIP reconstructions. CONTRAST MATERIAL: Intravenous: Omnipaque 350 Contrast volume:100 ml COMPARISON: CT CT CHEST PE CTA from 06/24/2023 FINDINGS: Pulmonary Arteries: No evidence of filling defect to suggest pulmonary emboli. Main pulmonary arteri es are dilated which could indicate pulmonary hypertension. Tracheobronchial tree: Patent where visualized. Mediastinum and Afsaneh: No dominant adenopathy or fluid collection. Pulmonary parenchyma: Evaluation of the lungs is limited by expiratory changes and respiratory motion . Right lower lobe infiltrate is present which is has worsened when compared with the previous exam. There also patchy infiltrates in the right upper lobe. Diffuse ground-glass opacities are present bilaterally. There is some sparing of the left lung base and medial right middle lobe. Pleura: No effusion or pneumothorax. Heart: The heart is not dilated. No coronary artery calcifications are seen. Aorta: Thoracic aorta non-dilated. No aneurysm. No dissection. Upper abdomen: Enlarged liver showing severe fatty infiltration. The right diaphragm is elevated. Bones: Unremarkable for age. Tubes, Catheters, and Lines: None IMPRESSION: No evidence of pulmonary embolism. Bilateral pulmonary infiltrates greatest at the right lower lobe. RADIATION DOSE DELIVERED: 761.85mGy.cm Total DLP DATA REPOSITORY: All CT scans at this facility are submitted to the National Radiology Data Registry (NRDR) Dose Index Registry (DIR) with the [employer] (ACR). RADIATION OPTIMIZATION: All CT scans at this facility use at least one of these dose optimization te chniques: automated exposure control; mA and/or kV adjustment per patient size (includes targeted exa ms where dose is matched to clinical indication); or iterative reconstruction.
[2023-06-27 04:04] VITALS: BP 139/72; PULSE 67; RESP 16; TEMP 36.7; O2SAT 93
[2023-06-27] MEDS: VANCOMYCIN/WATER (PEG) 1.5 GM/300 ML BAG IV ×3 (04:05→21:18)
[2023-06-27] MEDS: Normal Saline Flush 10 ML SYR IVP ×3 (04:06→20:46)
[2023-06-27 06:37] LABS: Abs Immature Grans 0.01 10^3/uL (0.0-0.06); Absolute Basophil Count 0.06 10^3/uL (0.0-0.2); Absolute Eosinophil Count 0.24 10^3/uL (0.0-0.7); Absolute Lymphocyte Count 1.86 10^3/uL (1.2-3.4); Absolute Monocyte Count 0.66 10^3/uL (0.1-0.8); Absolute Neutrophil Count 4.33 10^3/uL (1.2-6.7); Basophils % 0.8; Eosinophils % 3.4; HCT 28.1 % (36.0-46.0); HGB 7.9 g/dL (11.2-15.7); Immature Grans % 0.1; MCHC 28.1 % (32.0-36.0); MCV 68 fL (80-95); MPV 8.4 fL (8.0-11.0); Monocytes % 9.2; Neutrophils % 60.5; Platelet Count 368 10^3/uL (130-400); RBC 4.16 10^6/uL (3.93-5.22); RDW 24.4 % (11.7-14.6); RDW-SD 58.2 fL; WBC 7.16 10^3/uL (4.4-10.8)
[2023-06-27 06:53] LABS: Anion Gap 8.3 mmol/L (3-11); BUN 11 mg/dL (7-18); CO2 25.7 mmol/L (21.0-32.0); CREATININE 0.7 mg/dL (0.55-1.02); Calcium 8.5 mg/dL (8.5-10.1); Chloride 105 mmol/L (98-107); Estimated GFR 109.98 (mL/min/1.73m2); Glucose 93 mg/dL (74-106); Potassium 4.2 mmol/L (3.5-5.1); Sodium 139 mmol/L (136-145)
[2023-06-27 06:56] LABS: Anisocytosis 2+; Microcytosis 2+
[2023-06-27 07:41] VITALS: BP 135/85; PULSE 75; RESP 16; TEMP 36.5; O2SAT 98
[2023-06-27] MEDS: Magnesium Gluconate 500 MG TAB 250 MG PO (07:47)
[2023-06-27] MEDS: FLUoxetine 20 MG CAP 30 MG PO (07:47)
[2023-06-27] MEDS: lamoTRIgine 100 MG TAB 400 MG PO (07:48)
[2023-06-27] MEDS: Propranolol 60 MG CAPCR 120 MG PO (07:48)
[2023-06-27] MEDS: Vitamins B Comp w/C TAB 1 TAB PO (07:48)
[2023-06-27] MEDS: Calcium 600mg/Vit D 200U TAB 1 TAB PO ×2 (07:49→20:44)
[2023-06-27] MEDS: Multivitamin TAB 1 TAB PO (07:49)
[2023-06-27] MEDS: Omeprazole 20 MG CAPCR 40 MG PO (07:50)
--- NOTE | 2023-06-27 11:33 | NUR.NOTE ---
Nursing Note: spoke with pharmacist kirsten about vanc level and continuing vanc doses. she states to continue administering vanc and random vanc level will not be considered until it is resulted
[2023-06-27 11:45] VITALS: BP 141/87; PULSE 60; RESP 17; TEMP 36.2; O2SAT 94
[2023-06-27 12:09] LABS: D-Dimer 1252 ng/mlFEU (<500)
[2023-06-27 12:10] LABS: Procalcitonin < 0.1 ng/mL
[2023-06-27] MEDS: AZITHROMYCIN 500 MG in Normal Saline 250 ML 250 MG IVPB (15:14)
[2023-06-27] MEDS: Sucralfate 1 GM TAB PO ×2 (15:41→21:17)
--- NOTE | 2023-06-27 16:15 | PGE_ITS ---
Date of Service Date of service: 06/27/23 Time of Service: 16:15 Assessment and Plan Assessment and plan (1) Pneumonia: Status: Acute Assessment and plan: No shortness of breath, SPO2 94-100% on RA WBC 7.16 Continue Azithromycin and Ceftriaxone, [facility] positive for gm positive cocci, second set neg @ 24h DDimer 1252 (2) Anemia: Status: Chronic Assessment and plan: Hgb 7.9 - heavy menses currently Monitor (3) Fatigue: Status: Acute Assessment and plan: Continues to feel fatigued, Hgb 7.9 and pneumonia (4) Hypertension: Status: Chronic Assessment and plan: Continue home meds monitor BP 130s/80s (5) Gastroesophageal reflux disease without esophagitis: Status: Acute Assessment and plan: Stable, continue home meds (6) Acute hypokalemia: Status: Acute Assessment and plan: Potassium 4.2 - monitor - discussed with Dr Johnston Subjective Subjective Patient reports: no new complaints, tolerating liquids well, tolerating a regular diet, voiding w/o difficulty, bowel movement and afebrile; denies diarrhea, blood in stool, nausea, vomiting or shortness of breath Interval history since last seen: Awake, alert, conversant, family in visiting. Denies abdominal pain. Reports formed stool today. Has usual menses at this time.Wants to go home Exam Narrative Exam Narrative: Const: Well-nourished, Well-developed, appearing stated age, semi fowlers in bed, with iPad, drinking coca cola and eating chocolate pudding, and :BFF visiting. Eyes: PERRL, no conjunctival injection, and symmetrical lids. ENT: Atraumatic external nose and ears. Moist MM. Neck: Symmetric, trachea midline, No thyromegaly. CVS: +S1/S2, No murmurs or gallops. Peripheral pulses 2+ and equal in all extremities. Brisk capillary refill in all extremities. RESP: Unlabored respiratory effort. Clear to auscultation bilaterally. No wheezes rales or rhonchi GI: Soft, Nontender/Nondistended, No hepatosplenomegaly. No guarding or rebound. MSK: Normocephalic/Atraumatic, Extremities w/o deformity No cyanosis or clubbing, Normal movement of all extremities Skin: Warm, Dry. No rashes or lesions. Neuro: sound effects person II-XII grossly intact. Psych: (AAO) x3. Appropriate mood and affect Objective Last Vital Signs Temp 36.2 C L 06/27/23 11:45 Pulse 60 06/27/23 11:45 Resp 17 06/27/23 11:45 BP 141/87 H 06/27/23 11:45 Pulse Ox 94 06/27/23 11:45 Laboratory Results - last 24 hr 06/27/23 06/27/23 06/27/23 06:11 06:11 11:30 WBC 7.16 RBC 4.16 Hgb 7.9 L Hct 28.1 L MCV 68 L MCH 19.0 L MCHC 28.1 L RDW 24.4 H Plt Count 368 MPV 8.4 Immature Gran % 0.1 Neutrophils % 60.5 Lymphocytes % 26.0 Monocytes % 9.2 Eosinophils % 3.4 Basophils % 0.8 Nucleated RBC % 0.0 Absolute Neutrophils 4.33 Absolute Lymphocytes 1.86 Absolute Monocytes 0.66 Absolute Eosinophils 0.24 Absolute Basophils 0.06 RBC Morphology See Below Anisocytosis 2+ Microcytosis 2+ D-Dimer VBG Lactate 1.0 Sodium 139 Potassium 4.2 Chloride 105 Carbon Dioxide 25.7 Anion Gap 8.3 BUN 11 Creatinine 0.7 Est GFR (CKD-EPI 2020) 109.98 Glucose 93 Calcium 8.5 Magnesium 2.0 Procalcitonin < 0.1 06/27/23 11:30 WBC RBC Hgb Hct MCV MCH MCHC RDW Plt Count MPV Immature Gran % Neutrophils % Lymphocytes % Monocytes % Eosinophils % Basophils % Nucleated RBC % Absolute Neutrophils Absolute Lymphocytes Absolute Monocytes Absolute Eosinophils Absolute Basophils RBC Morphology Anisocytosis Microcytosis D-Dimer 1252 H VBG Lactate Sodium Potassium Chloride Carbon Dioxide Anion Gap BUN Creatinine Est GFR (CKD-EPI 2020) Glucose Calcium Magnesium Procalcitonin Time Spent with Patient Time Spent with Patient: 25-34 minutes Time was spent: preparing to see the patient(eg.review tests), ordering medications,tests, procedures, referring, communicating with other health rn complex care, indepentently interpreting results, counseling the patient and care coordination
[2023-06-27 19:35] VITALS: BP 148/86; PULSE 70; RESP 16; TEMP 36.9; O2SAT 93
[2023-06-27 20:12] LABS: C Diff PCR Negative (Negative)
[2023-06-27] MEDS: Normal Saline - Diluent 50 ML VIAL IJ (20:38)
[2023-06-27] MEDS: Omnipaque 350 MG/ML 100 ML BTL IJ (20:44)
[2023-06-27] MEDS: cefTRIAXone 1 GM/50 ML BAG IVPB (20:45)
[2023-06-27] MEDS: Loperamide 2 MG CAP 4 MG PO (20:46)
[2023-06-27] MEDS: Melatonin 3 MG TAB 9 MG PO (21:17)
[2023-06-27] MEDS: Zolpidem 10 MG TAB PO (21:18)
--- NOTE | 2023-06-27 21:18 | DI.VRAD_ITS ---
PROCEDURE INFORMATION: Exam: CTA Chest With Contrast Exam date and time: 06/27/2023 8:29 PM Age: 42 years old Clinical indication: Other: Elevated d-dimer, hypoxia TECHNIQUE: Imaging protocol: Computed tomographic angiography of the chest with contrast. Exam focused on the arteries. 3D rendering (Not supervised by radiologist): MIP and/or 3D reconstructed images were created by the technologist. Contrast material: OMNIPAQUE 350; Contrast volume: 100 ml; Contrast route: INTRAVENOUS (IV); COMPARISON: CT CHEST PE CTA 06/24/2023 2:51 PM FINDINGS: Pulmonary arteries: The pulmonary artery is enlarged measuring 3.4 cm. Consider pulmonary hypertension. Consider elevated right-sided filling pressures. No evidence of acute pulmonary embolism. Aorta: The aorta is normal without evidence of aneurysmal dilatation, dissection or occlusive disease. Lungs: There are diffuse interstitial infiltrates present. This may represent cardiogenic versus noncardiogenic edema. An acute inflammatory process and/or infectious process/pneumonia are not excluded. Dense consolidation of the right greater than left lung consistent with underlying pneumonia and/or atelectasis. There is elevation of the right hand diaphragmThere is no definite evidence of pulmonary masses. Pleural spaces: There is no evidence of pneumothorax. There are no pleural effusions present. Heart: The cardiac structures are normal. The right ventricular to left ventricular ratio is normal measuring approximately 0.9. Coronary arteries: No evidence of significant coronary artery atherosclerotic plaque or calcification. Lymph nodes: There is no evidence of lymphadenopathy. Liver: The liver is enlarged measuring greater than 16 cm. Gallbladder and bile ducts: There has been a cholecystectomy. Stomach and bowel: There has been a gastric stapling and bypass. Bones/joints: The spine, sternum, ribs, and pectoral girdles show no evidence of acute abnormality. Soft tissues: There are no soft tissue masses or fluid collections. The upper abdominal viscera are unremarkable. Other findings: The mediastinal structures are normal. IMPRESSION: 1. There are diffuse interstitial infiltrates present. This may represent cardiogenic versus noncardiogenic edema. An acute inflammatory process and/or infectious process/pneumonia are not excluded. 2. No evidence of acute pulmonary embolism. 3. Hepatomegaly 4. Elevation right hemidiaphragm. 5. Status post gastric bypass Dictated and Authenticated by: Maxim Payne MD. Ordering:ANNABELLA Paredes MD
[2023-06-27 21:50] LABS: Vancomycin (Random) 16.8 ug/mL (See Note)
[2023-06-27] MEDS: clonazePAM 0.5 MG TAB 1 MG PO (23:41)
[2023-06-27 23:42] VITALS: BP 148/95; PULSE 77; RESP 16; TEMP 37; O2SAT 93
[2023-06-28] MEDS: VANCOMYCIN/WATER (PEG) 1.5 GM/300 ML BAG IV ×2 (04:02→11:57)
[2023-06-28] MEDS: Normal Saline Flush 10 ML SYR IVP ×3 (04:02→15:42)
[2023-06-28 04:27] VITALS: BP 122/82; PULSE 64; RESP 16; TEMP 36.4; O2SAT 93
[2023-06-28 06:50] LABS: Abs Immature Grans 0.03 10^3/uL (0.0-0.06); Absolute Basophil Count 0.06 10^3/uL (0.0-0.2); Absolute Eosinophil Count 0.21 10^3/uL (0.0-0.7); Absolute Lymphocyte Count 2.03 10^3/uL (1.2-3.4); Absolute Neutrophil Count 4.84 10^3/uL (1.2-6.7); Basophils % 0.8; Eosinophils % 2.6; HCT 26.5 % (36.0-46.0); HGB 7.5 g/dL (11.2-15.7); Immature Grans % 0.4; Lymphocytes % 25.5; MCH 18.9 pg (27.0-33.0); MCHC 28.3 % (32.0-36.0); MCV 67 fL (80-95); MPV 8.5 fL (8.0-11.0); Neutrophils % 60.7; Platelet Count 354 10^3/uL (130-400); RBC 3.96 10^6/uL (3.93-5.22); RDW 24.7 % (11.7-14.6); RDW-SD 58.6 fL; WBC 7.97 10^3/uL (4.4-10.8)
[2023-06-28 07:20] LABS: Anisocytosis 2+; Hypochromasia 2+; Microcytosis 2+
[2023-06-28 07:28] LABS: Anion Gap 9.1 mmol/L (3-11); BUN 10 mg/dL (7-18); CO2 24.9 mmol/L (21.0-32.0); CREATININE 0.7 mg/dL (0.55-1.02); Calcium 8.8 mg/dL (8.5-10.1); Chloride 104 mmol/L (98-107); Estimated GFR 109.98 (mL/min/1.73m2); Glucose 123 mg/dL (74-106); Magnesium 2.2 mg/dL (1.8-2.4); Potassium 3.7 mmol/L (3.5-5.1); Sodium 138 mmol/L (136-145)
[2023-06-28 08:17] LABS: Lab Add On Test DONE
[2023-06-28 08:37] LABS: Iron 19 ug/dL (50-170); Total Iron Binding Capacity 307 ug/dL (250-450); Transferrin Sat 6 % (15-50)
[2023-06-28 08:51] LABS: Ferritin 8 ng/mL (8-252)
[2023-06-28] MEDS: Calcium 600mg/Vit D 200U TAB 1 TAB PO ×2 (09:19→21:25)
[2023-06-28] MEDS: Magnesium Gluconate 500 MG TAB 250 MG PO (09:19)
[2023-06-28] MEDS: Vitamins B Comp w/C TAB 1 TAB PO (09:19)
[2023-06-28] MEDS: Sucralfate 1 GM TAB PO ×4 (09:19→21:28)
[2023-06-28] MEDS: Multivitamin TAB 1 TAB PO (09:19)
[2023-06-28] MEDS: Propranolol 60 MG CAPCR 120 MG PO (09:19)
[2023-06-28] MEDS: Omeprazole 20 MG CAPCR 40 MG PO (09:19)
[2023-06-28 09:25] VITALS: BP 121/84; PULSE 65; RESP 16; TEMP 36.2; O2SAT 94
[2023-06-28] MEDS: FLUoxetine 10 MG TAB 30 MG PO (09:54)
[2023-06-28] MEDS: Enoxaparin 40 MG/0.4 ML SYR SC (11:05)
[2023-06-28] MEDS: IRON SUCROSE COMPLEX 200 MG in Normal Saline 100 ML 400 MG IVPB (11:05)
[2023-06-28 11:24] LABS: Lab Add On Test COMPLETED
[2023-06-28 11:43] LABS: NT-proBNP 1900 pg/mL (<300)
--- NOTE | 2023-06-28 12:29 | W.PM.PROGNOT ---
Date of Service Date of service: 06/28/23 Time of Service: 12:29 Assessment and Plan Assessment and plan (1) Pneumonia: Status: Acute Assessment and plan: Some shortness of breath with exertion, SPO2 94-100% on RA WBC 7.97 Continue Azithromycin and Ceftriaxone, BC stph epi and staph hominis - suspect contaminant, d/c vanco positive for gm positive cocci, second set neg @ 48h DDimer 1252 - CTA chest neg for PE (2) Shortness of breath: Status: Acute Assessment and plan: Crackles in the base - lasix 40 mg IV given, continues to have SOB with exertion, BNP 1900 Echo pending - ordered for 06/29 (3) Anemia: Status: Chronic Assessment and plan: Hgb 7.5 - heavy menses currently Monitor (4) Iron deficiency anemia: Status: Acute Assessment and plan: Iron 19 - venofer 200 mg IV today, will repeat tomorrow (5) Fatigue: Status: Acute Assessment and plan: Continues to feel fatigued, Hgb 7.5 and pneumonia, continue abx- iron 19 (Venofer 200 mg IV) (6) Hypertension: Status: Chronic Assessment and plan: Continue home meds monitor BP 110s/70s (7) Gastroesophageal reflux disease without esophagitis: Status: Acute Assessment and plan: Stable, continue home meds (8) Acute hypokalemia: Status: Acute Assessment and plan: Potassium 3.7 - monitor - discussed with Dr Baeza Subjective Subjective Patient reports: no new complaints, feels better, tolerating a regular diet, voiding w/o difficulty, bowel movement, shortness of breath (with exertion) and afebrile; denies diarrhea, nausea or vomiting Exam Narrative Exam Narrative: Const: Well-nourished, Well-developed, appearing stated age, semi fowlers in bed, with iPad, drinking coca cola and eating chocolate pudding, and :BFF visiting. Eyes: PERRL, no conjunctival injection, and symmetrical lids. ENT: Atraumatic external nose and ears. Moist MM. Neck: Symmetric, trachea midline, No thyromegaly. CVS: +S1/S2, No murmurs or gallops. Peripheral pulses 2+ and equal in all extremities. Brisk capillary refill in all extremities. RESP: Unlabored respiratory effort. Crackles in the bases bilat GI: Soft, Nontender/Nondistended, No hepatosplenomegaly. No guarding or rebound. MSK: Normocephalic/Atraumatic, Extremities w/o deformity No cyanosis or clubbing, Normal movement of all extremities Skin: Warm, Dry. No rashes or lesions. Neuro: ingot passer II-XII grossly intact. Psych: (AAO) x3. Appropriate mood and affect Objective Last Vital Signs Temp 36.2 C L 06/28/23 09:25 Pulse 65 06/28/23 09:25 Resp 16 06/28/23 09:25 BP 121/84 06/28/23 09:25 Pulse Ox 94 06/28/23 09:25 Laboratory Results - last 24 hr 06/27/23 06/27/23 06/28/23 16:33 19:00 06:34 WBC RBC Hgb 8.0 L Hct 28.0 L MCV MCH MCHC RDW Plt Count MPV Immature Gran % Neutrophils % Lymphocytes % Monocytes % Eosinophils % Basophils % Nucleated RBC % Absolute Neutrophils Absolute Lymphocytes Absolute Monocytes Absolute Eosinophils Absolute Basophils RBC Morphology Hypochromasia Anisocytosis Microcytosis Sodium 138 Potassium 3.7 Chloride 104 Carbon Dioxide 24.9 Anion Gap 9.1 BUN 10 Creatinine 0.7 Est GFR (CKD-EPI 2020) 109.98 Glucose 123 H Calcium 8.8 Magnesium 2.2 Iron TIBC Transferrin % Sat Ferritin NT-Pro-B Natriuret Pep 1900 H Stl C.difficile Tox PCR Negative Add-On Test Request 06/28/23 06/28/23 06/28/23 06:34 06:34 06:34 WBC 7.97 RBC 3.96 Hgb 7.5 L Hct 26.5 L MCV 67 L MCH 18.9 L MCHC 28.3 L RDW 24.7 H Plt Count 354 MPV 8.5 Immature Gran % 0.4 Neutrophils % 60.7 Lymphocytes % 25.5 Monocytes % 10.0 Eosinophils % 2.6 Basophils % 0.8 Nucleated RBC % 0.0 Absolute Neutrophils 4.84 Absolute Lymphocytes 2.03 Absolute Monocytes 0.80 Absolute Eosinophils 0.21 Absolute Basophils 0.06 RBC Morphology See Below Hypochromasia 2+ Anisocytosis 2+ Microcytosis 2+ Sodium Potassium Chloride Carbon Dioxide Anion Gap BUN Creatinine Est GFR (CKD-EPI 2020) Glucose Calcium Magnesium Iron 19 L TIBC 307 Transferrin % Sat 6 L Ferritin NT-Pro-B Natriuret Pep Stl C.difficile Tox PCR Add-On Test Request DONE 06/28/23 06/28/23 06:34 06:34 WBC RBC Hgb Hct MCV MCH MCHC RDW Plt Count MPV Immature Gran % Neutrophils % Lymphocytes % Monocytes % Eosinophils % Basophils % Nucleated RBC % Absolute Neutrophils Absolute Lymphocytes Absolute Monocytes Absolute Eosinophils Absolute Basophils RBC Morphology Hypochromasia Anisocytosis Microcytosis Sodium Potassium Chloride Carbon Dioxide Anion Gap BUN Creatinine Est GFR (CKD-EPI 2020) Glucose Calcium Magnesium Iron TIBC Transferrin % Sat Ferritin 8 NT-Pro-B Natriuret Pep Stl C.difficile Tox PCR Add-On Test Request COMPLETED Time Spent with Patient Time Spent with Patient: 35-49 minutes Time was spent: preparing to see the patient(eg.review tests), ordering medications,tests, procedures, referring, communicating with other health home care specialist, indepentently interpreting results, counseling the patient and care coordination
[2023-06-28 13:40] VITALS: BP 111/71; PULSE 61; RESP 16; TEMP 36.3; O2SAT 95
[2023-06-28] MEDS: AZITHROMYCIN 500 MG in Normal Saline 250 ML 250 MG IVPB (15:42)
[2023-06-28] MEDS: Furosemide 40 MG/4 ML VIAL IVP (17:58)
[2023-06-28 20:46] VITALS: BP 140/94; PULSE 65; RESP 16; TEMP 36.6; O2SAT 94
[2023-06-28] MEDS: Melatonin 3 MG TAB 9 MG PO (21:25)
[2023-06-28] MEDS: Lurasidone 40 MG TAB PO (21:25)
[2023-06-28] MEDS: lamoTRIgine 100 MG TAB 400 MG PO (21:26)
[2023-06-28] MEDS: Zolpidem 10 MG TAB PO (21:29)
[2023-06-28] MEDS: cefTRIAXone 1 GM/50 ML BAG IVPB (21:34)
[2023-06-29 07:11] LABS: Abs Immature Grans 0.03 10^3/uL (0.0-0.06); Absolute Basophil Count 0.08 10^3/uL (0.0-0.2); Absolute Eosinophil Count 0.26 10^3/uL (0.0-0.7); Absolute Lymphocyte Count 1.81 10^3/uL (1.2-3.4); Absolute Monocyte Count 0.56 10^3/uL (0.1-0.8); Basophils % 1.3; Eosinophils % 4.3; HCT 29.4 % (36.0-46.0); HGB 8.4 g/dL (11.2-15.7); Immature Grans % 0.5; MCH 19.1 pg (27.0-33.0); MCHC 28.6 % (32.0-36.0); MCV 67 fL (80-95); MPV 8.7 fL (8.0-11.0); Monocytes % 9.3; Neutrophils % 54.6; Nucleated RBC 0.5 % (0.0-0.3); Platelet Count 404 10^3/uL (130-400); RDW 25.1 % (11.7-14.6); RDW-SD 58.5 fL; WBC 6.04 10^3/uL (4.4-10.8)
[2023-06-29 07:21] VITALS: BP 127/89; PULSE 67; RESP 17; TEMP 36.3; O2SAT 95
[2023-06-29 07:31] LABS: Anion Gap 9.5 mmol/L (3-11); BUN 9 mg/dL (7-18); CO2 26.5 mmol/L (21.0-32.0); CREATININE 0.7 mg/dL (0.55-1.02); Calcium 9.1 mg/dL (8.5-10.1); Chloride 103 mmol/L (98-107); Estimated GFR 109.98 (mL/min/1.73m2); Glucose 91 mg/dL (74-106); Magnesium 2.2 mg/dL (1.8-2.4); Potassium 3.8 mmol/L (3.5-5.1); Sodium 139 mmol/L (136-145)
[2023-06-29 07:36] LABS: Anisocytosis 2+; Diff Comment RBC Morph Reviewed; Microcytosis 2+
[2023-06-29] MEDS: Omeprazole 20 MG CAPCR 40 MG PO (07:46)
[2023-06-29] MEDS: Sucralfate 1 GM TAB PO ×3 (07:47→21:51)
[2023-06-29] MEDS: Normal Saline Flush 10 ML SYR IVP ×2 (07:50→16:27)
[2023-06-29] MEDS: FLUoxetine 10 MG TAB 30 MG PO (08:41)
[2023-06-29] MEDS: Vitamins B Comp w/C TAB 1 TAB PO (08:41)
[2023-06-29] MEDS: Multivitamin TAB 1 TAB PO (08:42)
[2023-06-29] MEDS: Calcium 600mg/Vit D 200U TAB 1 TAB PO ×2 (08:42→21:52)
[2023-06-29] MEDS: Propranolol 60 MG CAPCR 120 MG PO (08:42)
[2023-06-29] MEDS: Magnesium Gluconate 500 MG TAB 250 MG PO (08:42)
[2023-06-29] MEDS: Enoxaparin 40 MG/0.4 ML SYR SC (08:45)
[2023-06-29 09:20] LABS: Transferrin 246 mg/dL (201-352)
--- NOTE | 2023-06-29 11:33 | DI.US_ITS ---
APPROVED REPORT EXAM: Comprehensive 2D, Doppler, and color-flow Echocardiogram Patient Location: In-Patient Room/Bed: 231 Hydro Pneumatic Tester: Charley Dixon RDCS (AE) Indications: Increasing SOB, Pulmonary edema Other Information Study Quality: Adequate. Technically limited study due to body habitus. Conclusion Mild concentric left ventricular hypertrophy. Ejection fraction is 65%. Wall motion is normal Normal right ventricular size and systolic function Both atria are normal in size There is no structural or hemodynamically significant valvular disease Estimated right ventricular systolic pressure is 32 mmHg Mildly dilated ascending aorta 3.53 cm Wall motion Left Ventricle The left ventricle is normal size. The left ventricular systolic function is normal. The left ventric ular ejection fraction is within the normal range. Mild concentric left ventricular hypertrophy. Ther e is normal LV segmental wall motion. There is no ventricular septal defect visualized. LVEF is 64%. Right Ventricle The right ventricle is normal size. The right ventricular systolic function is normal. Atria The left atrium size is normal. The right atrium size is normal. The interatrial septum is intact wit h no evidence for an atrial septal defect. Aortic Valve The aortic valve is normal in structure. Aortic valve is trileaflet. There is no aortic valvular sten osis. Trivial aortic regurgitation. Mitral Valve The mitral valve is normal in structure. No evidence of mitral valve stenosis. Trace mitral regurgita tion. Tricuspid Valve The tricuspid valve is normal in structure. There is no tricuspid valve stenosis. Trace to mild tricu spid regurgitation. The RVSP is 32.4_ mmHg. Pulmonic Valve The pulmonary valve is normal in structure. There is no pulmonic valvular stenosis. Trace pulmonic re gurgitation. Great Vessels The aortic root is normal in size. The ascending aorta is mildly dilated. Aortic arch is normal in ca liber. IVC is normal in size and collapses >50% with inspiration. Pericardium There is no pericardial effusion. 2D Dimensions IVSD d PLAX 1.16 cm F: 0.6-1.0 Ao Root d 3.03 cm F: 2.7 - 3.3 LVPW d PLAX 1.19 cm F: 0.6 - 1.0 Ao Asc Diam d 3.53 cm F: 2.3 - 3.1 LVID d PLAX 5.18 cm F: 3.8 - 5.2 LVDs 3.30 cm F: 2.2 - 3.5 LV EF Teichholz 65.6 % FS 36.29 % LV EDV (Teich) 128.2 mL LV ESV (Teich) 44.1 mL M-Mode TAPSE 4.12 cm (M/F) >1.7 Auto EF LV EDV A4C 123.0 mL LV EDV A2C 138.9 mL LV EDV BP 131.2 mL LV ESV A4C 46.1 mL LV ESV A2C 50.3 mL LV ESV BP 48.3 mL LVEF(%) A4C 62.5 % LVEF(%) A2C 63.8 % LVEF(%) BP 63.2 % LV SV A4C 76.9 ml LV SV A2C 88.6 ml LV SV BP 82.9 ml LV CO A4C 4.7 L/min LV CO A2C 5.3 L/min LV CO BP 5.0 L/min HR A4C 61.12 BPM HR A2C 60.30 BPM LV EDV Index (BP) LA Volume LA Length A4C 5.6 cm LA Length A2C 5.9 cm LA Area A4C s 23.03 cm2 LA Area A2C s 20.01 cm2 LA Vol A4C A-L 80.34 mL LA Vol A2C A-L 57.38 mL LA Vol Biplane A-L 69.8 mL LA Vol/BSA A4C A-L LA Vol/BSA A2C A-L LA Vol/BSA BP A-L 29.3 mL/m2 LA Vol A4C MOD 74.8 mL LA Vol A2C MOD 52.2 mL LA Vol BP MOD 63.5 mL RA Volume RA Area A4C 14.9 cm2 RA ESV A4C (A-L) 39.4mL RA Vol/BSA A4C A-L RA Length A4C 4.8 cm RA ESV A4C (MOD) 38.4mL LV Diastology MV E' medial 0.107 (>0.07 m/s) MV E Vmax 1.11 (0.4-1.3 m/s) MV E/E' MED 10.34 (<14) MV A Vmax 0.70 (0.4-1.3 m/s) MV E' lateral 0.092 (>0.1 m/s) E/A Ratio 1.6 MV E/E' LAT 12.04 (<14) MV E' Average 0.100 m/s MV E/E'(average) 11.12 Aortic Valve AoV Vmax 1.47 m/s LVOT Vmax 1.02 m/s AoV Peak Grad 8.7 mmHg LVOT Peak Grad 4.1 mmHg AoV Area (Vmax) 2.17 cm2 LVOT VTI 0.250 m AoV VTI 0.353 m LVOT Mean Grad 2.3 mmHg AoV Mean Luis. 1.01 m/s LVOT SV 78.49 mL AoV Mean Grad 4.7 mmHg LVOT Diam s 2.00 cm AoV Area (VTI) 2.23 cm2 Velocity Ratio 0.69 Mitral Valve MV DT 208 (160-240 msec) MV Vmax TIPS 1.10 m/s MV Mean Grad 1.7 (<2mmHg) MV VTI 0.331 m Pulmonary Valve PV Vmax 1.07 (0.5-1.5 m/s) RVOT Vmax 0.70 m/s PV Peak Grad 4.6 mmHg RVOT Peak Gr. 2.0 mmHg PV Mean Luis 0.76 m/s RVOT VTI 0.182 m PV Mean Grad 2.6 mmHg RVOT Mean Gr. 1.2 mmHg Tricuspid Valve RA Pressure 3.00 mmHg TR Vmax 2.71 m/s TV S' 0.14 m/s TR Peak Grad 29.4 mmHg RVSP (TR) 32.4 mmHg
--- NOTE | 2023-06-29 12:54 | RESPIRATORY ---
RT Assessment Start: 06/24/23 19:56 Freq: .q shift and prn Status: Active Protocol: Document 06/29/23 12:47 LEXII (Rec: 06/29/23 12:54 LEXII [facility]-[id number]) RT Assessment Smoking History Smoking/Tobacco Use Status Former Tobacco Use Tobacco: How many years used 15 Quit Date 12/27/17 Tobacco Type cigarettes,e-cigarettes Cigarettes per Day 14 Years smoked 15 Smoking packs per day 0.5 OXYGEN HISTORY: Supplemental O2 At Rest 0 With Exertion 0 CPAP Can use home machine No: Has appointment for new sleep study DME/Compliance DME Not on home O2 Current Respiratory Symptoms Current Respiratory Symptoms Shortness of breath,Wheezing Activity Activity Level Not active, 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 Pt currently vapes and plans to quick with best friend once D/C from hospital.
[2023-06-29] MEDS: IRON SUCROSE COMPLEX 300 MG in Normal Saline 250 ML 167 MG IVPB (13:07)
[2023-06-29 14:43] VITALS: BP 132/79; PULSE 60; RESP 16; TEMP 36.3; O2SAT 94
[2023-06-29] MEDS: AZITHROMYCIN 500 MG in Normal Saline 250 ML 250 MG IVPB (16:28)
--- NOTE | 2023-06-29 19:05 | PDOC.CMPRO ---
Date of service: 06/29/23 Time of Service: 19:05 Care Management Progress Note Progress Note Text Progress Note Text: S/O: Nicole was sitting up in bed when CM met with her. She stated that she is feeling ok today, and feels that she is getting closer to discharge readiness. Per report, her H&H is improving. She remains on IV antibiotics. She is looking forward to returning home. CM will continue to follow. A: Lyndsey is a 42 year old female admitted to [facility] on 06/24/23 for hypokalemia, anemia, hypoxia. P: ?Nicole continues to be closely monitored, anticipate she will return home when ready per MD, follow up with community providers and her plan of care as prescribed and transport via private vehicle with family. CM continues to follow.
--- NOTE | 2023-06-29 20:22 | PGE_ITS ---
Date of Service Date of service: 06/29/23 Time of Service: 20:22 Assessment and Plan Assessment and plan (1) Pneumonia: Status: Acute Assessment and plan: Some shortness of breath with exertion, SPO2 94-100% on RA WBC 6.04 Continue Azithromycin and Ceftriaxone DDimer 1252 - CTA chest neg for PE (2) Shortness of breath: Status: Acute Assessment and plan: Echo EF 65%, no wall motion abdnormalities (3) Anemia: Status: Chronic Assessment and plan: Hgb 8.4 - heavy menses currently Monitor (4) Iron deficiency anemia: Status: Acute Assessment and plan: Iron 19 - venofer 300 mg IV today, will repeat tomorrow (total 800 mg) (5) Fatigue: Status: Acute Assessment and plan: Continues to feel fatigued, Hgb 8.4 and pneumonia, continue abx- iron 19 (Venofer 800 mg IV obver 3 days) Reports feeling stronger (6) Hypertension: Status: Chronic Assessment and plan: Continue home meds monitor BP 130/70 (7) Gastroesophageal reflux disease without esophagitis: Status: Acute Assessment and plan: Stable, continue home meds (8) Acute hypokalemia: Status: Acute Assessment and plan: Potassium 3.7 - monitor - discussed with Dr Baeza Subjective Subjective Patient reports: no new complaints, tolerating liquids well, tolerating a regular diet, voiding w/o difficulty, bowel movement and afebrile; denies di arrhea, nausea or vomiting Interval history since last seen: Nicole states she is feeling stronger today, she would like to go home. Discussed she could probably go home tomorrow. She continues to have no oxygen requirement Exam Narrative Exam Narrative: Const: Well-nourished, Well-developed, appearing stated age, semi fowlers in bed, with iPad, drinking coca cola and eating chocolate pudding, and :BFF visiting. Eyes: PERRL, no conjunctival injection, and symmetrical lids. ENT: Atraumatic external nose and ears. Moist MM. Neck: Symmetric, trachea midline, No thyromegaly. CVS: +S1/S2, No murmurs or gallops. Peripheral pulses 2+ and equal in all extremities. Brisk capillary refill in all extremities. RESP: Unlabored respiratory effort. Clear bilat throughout GI: Soft, Nontender/Nondistended, No hepatosplenomegaly. No guarding or rebound. MSK: Normocephalic/Atraumatic, Extremities w/o deformity No cyanosis or clubbing, Normal movement of all extremities Skin: Warm, Dry. No rashes or lesions. 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 Psych: (AAO) x3. Appropriate mood and affect Objective Last Vital Signs Temp 36.3 C L 06/29/23 14:43 Pulse 60 06/29/23 14:43 Resp 16 06/29/23 14:43 BP 132/79 06/29/23 14:43 Pulse Ox 94 06/29/23 14:43 Laboratory Results - last 24 hr 06/26/23 06/28/23 06/29/23 19:04 06:34 06:10 WBC RBC Hgb Hct MCV MCH MCHC RDW Plt Count MPV Immature Gran % Neutrophils % Lymphocytes % Monocytes % Eosinophils % Basophils % Nucleated RBC % Absolute Neutrophils Absolute Lymphocytes Absolute Monocytes Absolute Eosinophils Absolute Basophils RBC Morphology Anisocytosis Microcytosis Sodium 139 Potassium 3.8 Chloride 103 Carbon Dioxide 26.5 Anion Gap 9.5 BUN 9 Creatinine 0.7 Est GFR (CKD-EPI 2020) 109.98 Glucose 91 Calcium 9.1 Magnesium 2.2 Transferrin 246 Random Vancomycin 16.8 06/29/23 06:10 WBC 6.04 RBC 4.40 Hgb 8.4 L Hct 29.4 L MCV 67 L MCH 19.1 L MCHC 28.6 L RDW 25.1 H Plt Count 404 H MPV 8.7 Immature Gran % 0.5 Neutrophils % 54.6 Lymphocytes % 30.0 Monocytes % 9.3 Eosinophils % 4.3 Basophils % 1.3 Nucleated RBC % 0.5 H Absolute Neutrophils 3.30 Absolute Lymphocytes 1.81 Absolute Monocytes 0.56 Absolute Eosinophils 0.26 Absolute Basophils 0.08 RBC Morphology See Below Anisocytosis 2+ Microcytosis 2+ Sodium Potassium Chloride Carbon Dioxide Anion Gap BUN Creatinine Est GFR (CKD-EPI 2020) Glucose Calcium Magnesium Transferrin Random Vancomycin Time Spent with Patient Time Spent with Patient: 25-34 minutes Time was spent: preparing to see the patient(eg.review tests), ordering medications,tests, procedures, referring, communicating with other health youth care professional, indepentently interpreting results, counseling the patient and care coordination
[2023-06-29] MEDS: Zolpidem 10 MG TAB PO (21:52)
[2023-06-29] MEDS: lamoTRIgine 100 MG TAB 400 MG PO (21:53)
[2023-06-29] MEDS: Melatonin 3 MG TAB 9 MG PO (21:53)
[2023-06-29] MEDS: Lurasidone 40 MG TAB PO (21:54)
[2023-06-29] MEDS: LORazepam 1 MG TAB PO (21:55)
[2023-06-29] MEDS: cefTRIAXone 1 GM/50 ML BAG IVPB (21:55)
[2023-06-29 22:13] VITALS: BP 114/74; PULSE 76; RESP 20; TEMP 36.8; O2SAT 96
--- NOTE | 2023-06-29 23:00 | RT.EKG_ITS ---
APPROVED REPORT Exam: Resting ECG Reason for Exam: needs diflucan (causes QT prolongation) Patient Location: I HR:67 bpm ECG Measurements Heart Rate 67 AXIS AZ 178 P 25 QRSd 96 QRS 6 QT 446 T 2 QTc 471 Conclusion Sinus rhythm...normal P axis, V-rate 50- 99 Low voltage, precordial leads...precordial leads <1.0mV Borderline T abnormalities, diffuse leads...T flat/neg
[2023-06-30 06:44] LABS: Abs Immature Grans 0.03 10^3/uL (0.0-0.06); Absolute Basophil Count 0.06 10^3/uL (0.0-0.2); Absolute Eosinophil Count 0.24 10^3/uL (0.0-0.7); Absolute Lymphocyte Count 1.77 10^3/uL (1.2-3.4); Absolute Neutrophil Count 3.27 10^3/uL (1.2-6.7); Eosinophils % 4.1; HGB 8.2 g/dL (11.2-15.7); Immature Grans % 0.5; Lymphocytes % 30.2; MCHC 28.3 % (32.0-36.0); MCV 67 fL (80-95); MPV 8.6 fL (8.0-11.0); Monocytes % 8.5; Neutrophils % 55.7; Nucleated RBC 0.9 % (0.0-0.3); Platelet Count 397 10^3/uL (130-400); RBC 4.32 10^6/uL (3.93-5.22); RDW 25.3 % (11.7-14.6); RDW-SD 58.6 fL; WBC 5.87 10^3/uL (4.4-10.8)
[2023-06-30 06:59] LABS: Anisocytosis 2+; Diff Comment RBC Morph Reviewed; Hypochromasia 1+; Microcytosis 2+
[2023-06-30 07:08] LABS: BUN 7 mg/dL (7-18); CREATININE 0.7 mg/dL (0.55-1.02); Calcium 9.1 mg/dL (8.5-10.1); Chloride 105 mmol/L (98-107); Estimated GFR 109.98 (mL/min/1.73m2); Glucose 96 mg/dL (74-106); Magnesium 2.3 mg/dL (1.8-2.4); Potassium 3.6 mmol/L (3.5-5.1); Sodium 140 mmol/L (136-145)
[2023-06-30] MEDS: Vitamins B Comp w/C TAB 1 TAB PO (07:35)
[2023-06-30] MEDS: Calcium 600mg/Vit D 200U TAB 1 TAB PO (07:35)
[2023-06-30] MEDS: Omeprazole 20 MG CAPCR 40 MG PO (07:35)
[2023-06-30] MEDS: Propranolol 60 MG CAPCR 120 MG PO (07:35)
[2023-06-30] MEDS: Sucralfate 1 GM TAB PO ×2 (07:35→10:34)
[2023-06-30] MEDS: Multivitamin TAB 1 TAB PO (07:35)
[2023-06-30] MEDS: Magnesium Gluconate 500 MG TAB 250 MG PO (07:36)
[2023-06-30] MEDS: FLUoxetine 10 MG TAB 30 MG PO (07:36)
[2023-06-30] MEDS: Enoxaparin 40 MG/0.4 ML SYR SC (07:36)
[2023-06-30 07:41] VITALS: BP 139/91; PULSE 63; RESP 22; TEMP 35.8; O2SAT 94
[2023-06-30] MEDS: IRON SUCROSE COMPLEX 300 MG in Normal Saline 250 ML 167 MG IVPB (08:55)
[2023-06-30 11:15] VITALS: BP 124/83; PULSE 61; RESP 18; TEMP 36.6; O2SAT 95
--- NOTE | 2023-06-30 13:09 | W.PM.DS.N ---
Date of service: 06/30/23 Time of Service: 13:55 DS: Diagnosis Discharge Diagnosis (1) Pneumonia: Status: Acute Asessment and Plan: Patient initially presented with generalized weakness, SOB and hypoxia and was determined to be due to CAP. She was treated with 5 days of CTX and azithromycin and had complete resolution of her symptoms. (2) Shortness of breath: Status: Acute (3) Anemia: Status: Chronic Asessment and Plan: Found to have Hb <8 and due to concurrent SOB she was given 1U PRBCs. Additionally she was found to be iron deficient and was given iron infusions during hospitalization. (4) Iron deficiency anemia: Status: Acute (5) Fatigue: Status: Acute (6) Hypertension: Status: Chronic (7) Gastroesophageal reflux disease without esophagitis: Status: Acute (8) Acute hypokalemia: Status: Acute Discharge Plan Disposition Patient Disposition: Home Condition: Stable Discharge Details Reason For Visit: Hypokalemia, Anemia, Hypoxia Admit Date/Time: 06/24/23 15:44 Admit Provider: Willy Torres Attending Provider: Willy Torres Primary Care Provider: Savannah Ozuna Hospital Course Hospital Course: Patient presented with generalized weakness, shortness of breath and hypoxia and was found to CAP. She was treated with 5 days of CTX and azithromycin and ultimately was weaned off of supplemental oxygen. Additionally she was found to be severe iron defficiency anemia and required 1 U PRBCs as well as iron infusion. Home Meds and New Rx's Prescriptions: Continued calcium carbonate-vitamin D3 500 mg(1,250mg) -400 unit tablet 1 tab PO BID magnesium 250 mg tablet 250 mg PO DAILY propranolol 120 mg capsule,extended release 24hr 120 mg PO DAILY fluoxetine [Prozac] 20 mg capsule 40 mg PO DAILY cholecalciferol (vitamin D3) 2,000 unit tablet 2,000 unit PO DAILY vitamin B complex [B Complex 1] tablet 1 tab PO DAILY lamotrigine [Lamictal] 200 mg tablet 400 mg PO HS hydroxyzine HCl 50 mg tablet 50 mg PO TID PRN PRN naproxen 250 mg tablet 250 mg PO BID PRN (Reason: pain) Qty: 30 3RF Rx Instructions: Take as needed for headaches. No more than 2-3 times per week. rizatriptan 10 mg tablet See Rx Instructions PO .COMPLEX Qty: 9 2RF Rx Instructions: take 1 tab at onset of headache; if no relief may repeat 1 tab after at least 2 hrs; max = 2 tabs/24 hr PO omeprazole 20 MG tablet,delayed release (DR/EC) 20 mg PO BID zolpidem 10 mg tablet 10 mg PO HS PRN Patient Comments: TAKE 1 TABLET BY MOUTH EVERY DAY AT BEDTIME NEEDED clonazepam 0.5 mg tablet 0.5 - 1 mg PO HS PRN Patient Comments: TAKE 1 TO 2 TABLETS BY MOUTH ONCE DAILY AT BEDTIME lisdexamfetamine [Vyvanse] 70 mg capsule 70 mg PO QAM Patient Comments: TAKE 1 CAPSULE BY MOUTH EVERY DAY IN THE MORNING lurasidone 40 mg tablet 40 mg PO QPM Rexulti 0.5 mg tablet 0.5 mg PO DAILY Rx Instructions: Increase to 1mg tablet about 1 week (start date = 06/17/23) No Action multivitamin tablet 1 tab PO DAILY Discharge Instructions Instructions: Community Acquired Pneumonia (DC), Return to Work Instructions (DC) Activity:: Activity as Tolerated Equipment/Supplies:: No Equipment Needed Diet:: As Tolerated DS: Summary Time Spent with Patient providing and/or coordinating discharge services: Greater than 30 minutes Status at Discharge Functional status at discharge: independent ambulation Overall status at discharge: patient is back to baseline Mental Status: mental status grossly normal Speech and Movement: speech and movement normal Mood: congruent mood Affect: normal affect Exam Const General: cooperative, comfortable and no acute distress HENMT Head: normal to inspection, normocephalic and atraumatic Resp Effort & Inspection: normal respiratory effort and able to speak in complete sentences Auscultation: clear to auscultation bilaterally, lung sounds not diminished, no rhonchi and no wheezes Cardio Rate: regular rate Rhythm: regular rhythm Heart Sounds: S1 normal and S2 normal GI Inspection: normal to inspection Palpation: soft Auscultation: normal bowel sounds Skin General skin exam: no rashes or lesions noted Trauma: no lacerations or abrasions Psych Mental Status: mental status grossly normal Speech and Movement: speech and movement normal Mood: congruent mood Affect: normal affect DS: Data Vitals/I&O Vitals and I&O: Vital Signs Temperature 36.6 C 06/30/23 11:15 Temperature Source Tympanic 06/30/23 11:15 Pulse 61 06/30/23 11:15 Pulse Rhythm Regular 06/30/23 08:00 Pulse 90 06/24/23 17:40 Respiratory Rate 18 06/30/23 11:15 Respiratory Effort Normal, Non-Labored 06/30/23 08:00 Respiratory Depth Normal 06/30/23 08:00 Respiratory Pattern Normal 06/30/23 08:00 Blood Pressure 124/83 06/30/23 11:15 Blood Pressure Mean 84 06/24/23 17:31 Blood Pressure Position Sitting 06/24/23 12:34 Pulse Oximetry 95 06/30/23 11:15 Oxygen Delivery Method Room Air 06/30/23 11:15 Oxygen Flow Rate 0 06/30/23 11:15 Pain Level 0 06/30/23 11:15 Comment denies pain at this time 06/28/23 20:05 Intake & Output 06/29/23 06/30/23 06/30/23 23:59 11:59 23:59 Intake Total 515 / 935 515 / 515 Output Total 1650 / 2150 500 / 500 Balance -1135 / -1215 Intake: IV 515 / 515 515 / 515 Output: Urine 1650 / 2150 500 / 500 Other: Urine Color Dark Terese Yellow Urine Appearance Clear Clear Urine Odor None Stool Size Moderate Stool Characteristics Soft Brown Voiding Methods Toilet Data Completed and Pending Labs on day of discharge: Labs from last 24 hours 06/30/23 06/30/23 06/30/23 08:50 08:50 06:14 WBC 5.87 RBC 4.32 Hgb 8.2 L Hct 29.0 L MCV 67 L MCH 19.0 L MCHC 28.3 L RDW 25.3 H Plt Count 397 MPV 8.6 Immature Gran % 0.5 Neutrophils % 55.7 Lymphocytes % 30.2 Monocytes % 8.5 Eosinophils % 4.1 Basophils % 1.0 Nucleated RBC % 0.9 H Absolute Neutrophils 3.27 Absolute Lymphocytes 1.77 Absolute Monocytes 0.50 Absolute Eosinophils 0.24 Absolute Basophils 0.06 RBC Morphology See Below Hypochromasia 1+ Anisocytosis 2+ Microcytosis 2+ Sodium Potassium Chloride Carbon Dioxide Anion Gap BUN Creatinine Est GFR (CKD-EPI 2020) Glucose Calcium Magnesium Urine Legionella Ag Pending Ur Strep pneumoniae Ag Pending 06/30/23 06:14 WBC RBC Hgb Hct MCV MCH MCHC RDW Plt Count MPV Immature Gran % Neutrophils % Lymphocytes % Monocytes % Eosinophils % Basophils % Nucleated RBC % Absolute Neutrophils Absolute Lymphocytes Absolute Monocytes Absolute Eosinophils Absolute Basophils RBC Morphology Hypochromasia Anisocytosis Microcytosis Sodium 140 Potassium 3.6 Chloride 105 Carbon Dioxide 28.0 Anion Gap 7.0 BUN 7 Creatinine 0.7 Est GFR (CKD-EPI 2020) 109.98 Glucose 96 Calcium 9.1 Magnesium 2.3 Urine Legionella Ag Ur Strep pneumoniae Ag Preliminary micro results at discharge 06/26/23 08:50 Blood Culture - Preliminary Blood NO GROWTH 96 HOURS 06/26/23 09:00 Blood Culture - Preliminary Blood NO GROWTH 96 HOURS PFSH All Active Problems Shortness of breath (Acute) Iron deficiency anemia (Acute) Pneumonia (Acute) Anemia (Chronic) Acute hypokalemia (Acute) Fatigue (Acute) Headache, migraine (Chronic) Sleep apnea (Acute) Chest pain (Acute) Epigastric abdominal pain (Acute) Postop check (Acute) Chronic migraine (Acute) Abnormal auditory perception (Acute) Hypertension (Chronic) Gastroesophageal reflux disease without esophagitis (Acute) Xanthoma of eyelid (Acute) Cholelithiasis (Acute) Bipolar disorder (Acute) Headache, chronic migraine without aura (Acute) TMJ (temporomandibular joint syndrome) (Acute) Medical History Acne Chronic GERD Coccydynia Depression Dyshidrotic eczema Eczema Fatigue History of meningitis Hypotension Irregular periods Low back pain Menorrhagia Nausea & vomiting Obesity Onychomycosis MAYKEL (obstructive sleep apnea) Surgical History H/O tubal ligation Hx of bariatric surgery 01/2018 S/P laparoscopic cholecystectomy (~08/2019) Family History Father Hypertension Atrial fibrillation Mother Hyperlipidemia Depression Migraines Anxiety Maternal Grandfather Chronic headaches Other Cancer Social History Smoking/Tobacco Use Status: Former Tobacco Use Quit Date: 12/27/17 Tobacco: How many years used: 15 Smoking risk assessment performed?: Yes Alcohol Intake: former Drug use: Never Substance use type: does not use Housing: house Do you feel safe at home: Yes Do you feel safe in your relationship?: Yes Time Spent with Patient Time Spent with Patient: <45 minutes Time was spent: preparing to see the patient(eg.review tests), obtaining and/or reviewing separately otained hiistory, indepentently interpreting results, counseling the patient and care coordination
--- NOTE | 2023-06-30 14:48 | PDOC.CMDIS ---
Date of service: 06/30/23 Time of Service: 14:48 LACE Index Scoring Tool Questions: Length of Stay (in days): 4 - 6 Was the patient admitted via the E.D.?: Yes E.D. Visits: 1 Answers: Total Score: 8 Risk of Readmission: Low Risk Care Management Discharge Plan Reason for Hospitalization: Hypokalemia, anemia, hypoxia Discharge Plan: Nicole is discharged home via private vehicle with family. She will follow up with community providers and discharge plan of care as instructed. No new services are ordered prior to discharge. Patient/Family Education Needs: Review discharge instructions, limitations, medications and plan to follow up with community providers. Discuss ask me three and goals of self care.
[2023-06-30 22:44] LABS: Legionella Ag Detection Urine Negative (Negative)
[2023-07-02 15:37] LABS: Streptococcus Pneumoniae Ag, U Negative (Negative)
== END 2023-06-30 14:51 | disposition home or self-care (01) | DRG 194 ==
LOC: ER 16:56 → MS 06-25 12:11
PROVIDERS: Internal Medicine; Nurse Practitioner Family; Admitting Provider Family Medicine; Emergency Provider Student in an Organized Health Care Education/Training Program; PCP Nurse Practitioner Family; Visit Provider Family Medicine
DX: J18.9 Pneumonia, unspecified organism (principal); Z68.43 Body mass index [BMI] 50.0-59.9, adult; R09.02 Hypoxemia; R53.83 Other fatigue; D50.9 Iron deficiency anemia, unspecified; I10 Essential (primary) hypertension; K21.9 Gastro-esophageal reflux disease without esophagitis; E87.6 Hypokalemia; F31.9 Bipolar disorder, unspecified; G43.709 Chronic migraine without aura, not intractable, without status migrainosus; E66.9 Obesity, unspecified; G47.33 Obstructive sleep apnea (adult) (pediatric); Z87.891 Personal history of nicotine dependence
CPT/HCPCS: 36410; 36415; 36416; 36430; 71275; 80048; 80053; 82805; 82962; 83690; 84145; 86850; 86900; 86901; 86920; 87040; 87077; 87081; 87449; 87493; 87637; 93005; 96361; 96365; 96368; 96375; 99285; J1650; 80202; 81003; 81015; 82728; 83540; 83550; 83605; 83735; 83880; 84443; 84466; 84484; 85014; 85018; 85025; 85379; 87070; 87186; 87205; 87581; 87899; 93010; 93306; 94667; 94668; 94760; 99222; 99232; 99239; J0456; J0696; J1756; J1940; J3480; J3490; P9016

== ENCOUNTER 2023-07-03 14:17 | Outpatient (CLI) | payer BC, SELFPAY ==
[2023-07-03 14:39] LABS: HGB 9.6 g/dL (11.2-15.7); MCH 19.6 pg (27.0-33.0); MCHC 28.2 % (32.0-36.0); MCV 70 fL (80-95); MPV 8.5 fL (8.0-11.0); Platelet Count 465 10^3/uL (130-400); RBC 4.89 10^6/uL (3.93-5.22); RDW 27.8 % (11.7-14.6); Reticulocyte 2.7 % (0.5-2.4); WBC 9.15 10^3/uL (4.4-10.8)
[2023-07-03 15:28] LABS: Anion Gap 12.5 mmol/L (3-11); BUN 6 mg/dL (7-18); CO2 23.5 mmol/L (21.0-32.0); CREATININE 0.9 mg/dL (0.55-1.02); Calcium 9.7 mg/dL (8.5-10.1); Chloride 102 mmol/L (98-107); Estimated GFR 81.35 (mL/min/1.73m2); Glucose 113 mg/dL (74-106); LDH 294 U/L (81-234); Potassium 3.5 mmol/L (3.5-5.1); Sodium 138 mmol/L (136-145)
[2023-07-03 16:21] LABS: Folate 7.7 ng/mL (8.6-20.0); Vitamin B12 834 pg/mL (193-986)
[2023-07-06 10:42] LABS: Haptoglobin 246 mg/dL (32-197)
== END 2023-07-03 14:18 | disposition home or self-care (01) ==
LOC: LBO 14:17
PROVIDERS: Visit Provider Family Medicine
DX: R06.02 Shortness of breath (principal); D64.9 Anemia, unspecified
CPT/HCPCS: 36415; 80048; 85027; 82607; 82746; 83010; 83615; 85045

== ENCOUNTER 2023-07-06 10:28 | Emergency (ER) | payer BC, SELFPAY ==
[2023-07-06 10:37] VITALS: BP 120/79; PULSE 95; RESP 20; TEMP 36.5; O2SAT 95
--- NOTE | 2023-07-08 16:35 | ED.GENADUL_ITS ---
Discharge Plan Disposition Patient Disposition: Home Discharge Details Clinical Impression: Drug eruption Primary Care Provider: None,None ED Provider: Opal Silva Home Meds and New Rx's Prescriptions: New prednisone 20 mg tablet 40 mg PO ONCE Qty: 10 0RF Continued calcium carbonate-vitamin D3 500 mg(1,250mg) -400 unit tablet 1 tab PO BID magnesium 250 mg tablet 250 mg PO DAILY propranolol 120 mg capsule,extended release 24hr 120 mg PO DAILY fluoxetine [Prozac] 20 mg capsule 40 mg PO DAILY multivitamin tablet 1 tab PO DAILY cholecalciferol (vitamin D3) 2,000 unit tablet 2,000 unit PO DAILY vitamin B complex [B Complex 1] tablet 1 tab PO DAILY lamotrigine [Lamictal] 200 mg tablet 400 mg PO HS hydroxyzine HCl 50 mg tablet 50 mg PO TID PRN PRN naproxen 250 mg tablet 250 mg PO BID PRN (Reason: pain) Qty: 30 3RF Rx Instructions: Take as needed for headaches. No more than 2-3 times per week. omeprazole 20 MG tablet,delayed release (DR/EC) 20 mg PO BID zolpidem 10 mg tablet 10 mg PO HS PRN Patient Comments: TAKE 1 TABLET BY MOUTH EVERY DAY AT BEDTIME NEEDED clonazepam 0.5 mg tablet 0.5 - 1 mg PO HS PRN Patient Comments: TAKE 1 TO 2 TABLETS BY MOUTH ONCE DAILY AT BEDTIME lisdexamfetamine [Vyvanse] 70 mg capsule 70 mg PO QAM Patient Comments: TAKE 1 CAPSULE BY MOUTH EVERY DAY IN THE MORNING lurasidone 40 mg tablet 40 mg PO QPM Patient Comments: not taking Rexulti 0.5 mg tablet 0.5 mg PO DAILY Rx Instructions: Increase to 1mg tablet about 1 week (start date = 06/17/23) rizatriptan 10 mg tablet See Rx Instructions PO .COMPLEX PRN Rx Instructions: take 1 tab at onset of headache; if no relief may repeat 1 tab after at least 2 hrs; max = 2 tabs/24 hr PO Discharge Instructions Instructions: Acute Rash (ED) Additional Instructions: At this time, your rash is of unclear I wonder if it is related to the an tibiotics that you are on 5 days ago Take the prednisone as prescribed, continue on the hydroxyzine, if you are not showing improvement in the next 24 hours of prednisone I do recommend reassessment, I also recommend calling your psychiatric nurse practitioner for continued monitoring of your new medication Please return immediately should you develop significant change in your rash, lesions around your mouth, difficulty swallowing, shortness of breath, or with any new or progressing symptoms Discharge Data Discharge Date/Time-TO BE ENTERED AT DEPARTURE: 07/06/23 11:36 Medical Decision Making This 42-year-old female presents with rash that started 48 hours ago. Vitals stable, airway patent, maculopapular rash noted Patient voices concern for Vidal-Karri syndrome, while it is difficult to exclude Vidal-Karri syndrome, I do not see any clear evidence this represents Vidal-Karri's or TN I suspect this is a drug reaction, patient is recently on 2 different antibiotics 5 days ago, I will place her on steroids, she will continue the hydroxyzine If the rash persists despite these interventions she must be reevaluated and if she should develop any perioral or oral involvement she must return immediately, she is alert, oriented, of decisional capacity, in no acute distress, stable for discharge home at this time, she is also encouraged to follow-up with her psychiatric nurse practitioner regarding whether or not Rexulti should be continued, at this time I think she stable for discharge home HPI General Date/Time Provider Initiated Documentation: 07/06/23 10:51 . HPI Narrative: 42-year-old female presenting with generalized rash that started yesterday started a new medication 2 weeks ago and was recently admitted for sepsis and pneumonia, received IV antibiotics during that stay. New medication is called Rexulti, this is a medication for bipolar disorder. She denies any additional new medications. She denies any chest pain, shortness of breath, difficulty swallowing, fever or chills. She is feeling markedly improved from her admission reportedly. She is does state that the rash is itchy but is otherwise asymptomatic. Related Data Home Medications Medication Instructions Recorded Confirmed omeprazole 20 mg tablet,delayed 20 mg PO BID 12/24/13 07/06/23 release cholecalciferol (vitamin D3) 50 2,000 unit PO DAILY 01/12/19 06/24/23 mcg (2,000 unit) tablet fluoxetine 20 mg capsule (Prozac) 40 mg PO DAILY 01/12/19 07/06/23 multivitamin 1 tab PO DAILY 01/12/19 07/06/23 vitamin B complex (B Complex 1 1 tab PO DAILY 01/12/19 07/06/23 tablet) calcium carbonate 500 mg-vitamin 1 tab PO BID 02/14/19 07/06/23 D3 10 mcg (400 unit) tablet lamotrigine 200 mg tablet 400 mg PO HS 02/14/19 07/06/23 (Lamictal) magnesium 250 mg tablet 250 mg PO DAILY 02/14/19 07/06/23 naproxen 250 mg tablet 250 mg PO BID PRN pain #30 tabs 07/26/20 07/06/23 hydroxyzine HCl 50 mg tablet 50 mg PO TID PRN PRN 08/20/20 07/06/23 propranolol 120 mg 120 mg PO DAILY 06/04/21 07/06/23 capsule,extended release 24 hr zolpidem 10 mg tablet 10 mg PO HS PRN 06/25/23 07/06/23 brexpiprazole 0.5 mg tablet 0.5 mg PO DAILY 06/26/23 06/26/23 (Rexulti) clonazepam 0.5 mg tablet 0.5 - 1 mg PO HS PRN 06/26/23 07/06/23 lisdexamfetamine 70 mg capsule 70 mg PO QAM 06/26/23 07/06/23 (Vyvanse) lurasidone 40 mg tablet 40 mg PO QPM 06/26/23 06/26/23 prednisone 20 mg tablet 40 mg PO ONCE #10 tabs 07/06/23 rizatriptan 10 mg tablet See Rx Instructions PO .COMPLEX PRN 07/06/23 07/06/23 Previous Rx's Medication Instructions Recorded naproxen 250 mg tablet 250 mg PO BID PRN pain #30 tabs 07/26/20 prednisone 20 mg tablet 40 mg PO ONCE #10 tabs 07/06/23 Allergies Allergy/AdvReac Type Severity Reaction Status Date / Time Penicillins Allergy Intermediate Hives Unverified 07/06/23 10:41 aripiprazole [From [facility]] AdvReac Hyperactivi Verified 07/06/23 10:41 ty General Stated Complaint: Allergic BENIGNO: 3 PFSH All Active Problems (Updated 07/06/23 @ 11:28 by JACKLYN Barahona) Drug eruption (Acute) Iron deficiency anemia (Acute) Headache, migraine (Chronic) Sleep apnea (Acute) Chest pain (Acute) Epigastric abdominal pain (Acute) Postop check (Acute) Chronic migraine (Acute) Abnormal auditory perception (Acute) Hypertension (Chronic) Gastroesophageal reflux disease without esophagitis (Acute) Xanthoma of eyelid (Acute) Cholelithiasis (Acute) Bipolar disorder (Acute) Headache, chronic migraine without aura (Acute) TMJ (temporomandibular joint syndrome) (Acute) Medical History Acne Chronic GERD Coccydynia Depression Dyshidrotic eczema Eczema Fatigue History of meningitis Hypotension Irregular periods Low back pain Menorrhagia Nausea & vomiting Obesity Onychomycosis MAYKEL (obstructive sleep apnea) Surgical History H/O tubal ligation Hx of bariatric surgery 01/2018 S/P laparoscopic cholecystectomy (~08/2019) Family History Father Hypertension Atrial fibrillation Mother Hyperlipidemia Depression Migraines Anxiety Maternal Grandfather Chronic headaches Other Cancer Social History Smoking/Tobacco Use Status: Former Tobacco Use Quit Date: 12/27/17 Tobacco: How many years used: 15 Smoking risk assessment performed?: Yes Alcohol Intake: former Drug use: Never Substance use type: does not use Housing: house Do you feel safe at home: Yes Do you feel safe in your relationship?: Yes Course Vital Signs Vital signs: Vital Signs Temperature 36.5 C 07/06/23 10:37 Pulse 95 H 07/06/23 10:37 Respiratory Rate 20 07/06/23 10:37 Blood Pressure 120/79 07/06/23 10:37 Pulse Oximetry 95 07/06/23 10:37 Temperature 36.5 C 07/06/23 10:37 Temperature Source Temporal Artery Scan 07/06/23 10:37 Pulse 95 H 07/06/23 10:37 Respiratory Rate 20 07/06/23 10:37 Respiratory Effort Normal, Non-Labored 07/06/23 11:26 Respiratory Pattern Normal 07/06/23 11:26 Blood Pressure 120/79 07/06/23 10:37 Pulse Oximetry 95 07/06/23 10:37 Oxygen Delivery Method Room Air 07/06/23 10:37 Oxygen Flow Rate 0 07/06/23 10:37
== END 2023-07-06 11:36 | disposition home or self-care (01) ==
PROVIDERS: Emergency Provider Physician Assistant
DX: R21 Rash and other nonspecific skin eruption (principal); L27.0 Generalized skin eruption due to drugs and medicaments taken internally; Z79.899 Other long term (current) drug therapy; I10 Essential (primary) hypertension; F31.9 Bipolar disorder, unspecified
CPT/HCPCS: 99282; 99283

== ENCOUNTER 2023-07-29 11:48 | Outpatient (CLI) | payer BC, SELFPAY ==
[2023-07-29 12:26] LABS: HCT 38.4 % (36.0-46.0); HGB 11.5 g/dL (11.2-15.7); MCHC 29.9 % (32.0-36.0); MCV 77 fL (80-95); MPV 8.4 fL (8.0-11.0); Platelet Count 308 10^3/uL (130-400); WBC 6.57 10^3/uL (4.4-10.8)
[2023-07-29 12:54] LABS: Ferritin 85 ng/mL (8-252); Iron 47 ug/dL (50-170); Total Iron Binding Capacity 288 ug/dL (250-450); Transferrin Sat 16 % (15-50)
== END 2023-07-29 11:49 | disposition home or self-care (01) ==
PROVIDERS: Visit Provider Family Medicine
DX: D64.9 Anemia, unspecified (principal); Z98.84 Bariatric surgery status
CPT/HCPCS: 36415; 85027; 82728; 83540; 83550

== ENCOUNTER 2024-06-03 21:50 | Outpatient (REF) | payer OTHER, SELFPAY ==
[2024-06-03 21:12] LABS: Abs Immature Grans 0.02 10^3/uL (0.0-0.06); Absolute Basophil Count 0.03 10^3/uL (0.0-0.2); Absolute Eosinophil Count 0.16 10^3/uL (0.0-0.7); Absolute Lymphocyte Count 2.68 10^3/uL (1.2-3.4); Absolute Monocyte Count 0.82 10^3/uL (0.1-0.8); Absolute Neutrophil Count 5.13 10^3/uL (1.2-6.7); Basophils % 0.3 %; Eosinophils % 1.8 %; HCT 42.4 % (36.0-46.0); HGB 13.3 g/dL (11.2-15.7); Immature Grans % 0.2 %; Lymphocytes % 30.3 %; MCHC 31.4 % (32.0-36.0); MCV 93 fL (80-95); MPV 8.5 fL (8.0-11.0); Monocytes % 9.3 %; Neutrophils % 58.1 %; Platelet Count 360 10^3/uL (130-400); RBC 4.58 10^6/uL (3.93-5.22); RDW 14.3 % (11.7-14.6); RDW-SD 48.4 fL; WBC 8.84 10^3/uL (4.4-10.8)
[2024-06-03 21:24] LABS: Iron 33 ug/dL (50-170); Total Iron Binding Capacity 301 ug/dL (250-450); Transferrin Sat 11 % (15-50)
[2024-06-03 21:25] LABS: ALT 38 U/L (14-59); AST 21 U/L (15-37); Albumin 3.4 g/dL (3.4-5.0); Alkaline Phosphatase 90 U/L (46-116); Anion Gap 8.9 mmol/L (3-11); BUN 17 mg/dL (7-18); Bilirubin, Total 0.22 mg/dL (0.2-1.0); CO2 26.1 mmol/L (21.0-32.0); CREATININE 0.6 mg/dL (0.55-1.02); Calcium 9.3 mg/dL (8.5-10.1); Chloride 103 mmol/L (98-107); Estimated GFR 113.44 (mL/min/1.73m2); Glucose 100 mg/dL (74-106); PHOSPHORUS 4.5 mg/dL (2.6-4.7); Potassium 4.4 mmol/L (3.5-5.1); Sodium 138 mmol/L (136-145); Total Protein 7.6 g/dL (6.4-8.2)
[2024-06-03 22:03] LABS: Ferritin 41 ng/mL (8-252); Vitamin B12 690 pg/mL (193-986); Vitamin D 25 Total 43.2 ng/mL (30-100)
[2024-06-03 22:14] LABS: Folate > 20.0 ng/mL (8.6-20.0)
== END 2024-06-03 21:51 | disposition home or self-care (01) ==
LOC: NCHCN 21:50
PROVIDERS: Visit Provider Family Medicine
DX: R53.83 Other fatigue (principal); Z98.84 Bariatric surgery status
CPT/HCPCS: 80053; 82306; 82607; 82728; 82746; 83540; 83550; 84100; 85025

== ENCOUNTER 2024-08-02 11:30 | Outpatient (CLI) | payer BC, SELFPAY ==
[2024-08-02 10:42] LABS: ALT 18 U/L (14-59); AST 12 U/L (15-37); Albumin 3.1 g/dL (3.4-5.0); Alkaline Phosphatase 88 U/L (46-116); Anion Gap 7.7 mmol/L (3-11); BUN 20 mg/dL (7-18); Bilirubin, Total 0.36 mg/dL (0.2-1.0); CO2 29.3 mmol/L (21.0-32.0); CREATININE 0.9 mg/dL (0.55-1.02); Calcium 9.1 mg/dL (8.5-10.1); Chloride 107 mmol/L (98-107); Estimated GFR 80.84 (mL/min/1.73m2); Ferritin 35 ng/mL (8-252); Glucose 95 mg/dL (74-106); Potassium 4.3 mmol/L (3.5-5.1); Sodium 144 mmol/L (136-145); TSH (W/Ref FT4) 2.04 uIU/mL (0.36-3.74); Total Protein 7.9 g/dL (6.4-8.2); Vitamin B12 1191 pg/mL (193-986); Vitamin D 25 Total 46.2 ng/mL (30-100)
[2024-08-02 11:02] LABS: Folate > 20.0 ng/mL (8.6-20.0)
[2024-08-02 11:06] LABS: Iron 87 ug/dL (50-170); Total Iron Binding Capacity 308 ug/dL (250-450); Transferrin Sat 28 % (15-50)
== END 2024-08-02 11:31 | disposition home or self-care (01) ==
LOC: LBO 11:31
PROVIDERS: Visit Provider Nurse Practitioner Family
DX: F31.32 Bipolar disorder, current episode depressed, moderate (principal); Z51.81 Encounter for therapeutic drug level monitoring
CPT/HCPCS: 36415; 80053; 82306; 82607; 82728; 82746; 83540; 83550; 84443

== ENCOUNTER 2024-11-07 16:00 | Outpatient (REF) | payer BC, SELFPAY ==
[2024-11-07 16:31] LABS: Abs Immature Grans 0.01 10^3/uL (0.0-0.06); Absolute Basophil Count 0.04 10^3/uL (0.0-0.2); Absolute Lymphocyte Count 1.99 10^3/uL (1.2-3.4); Absolute Monocyte Count 0.46 10^3/uL (0.1-0.8); Absolute Neutrophil Count 4.06 10^3/uL (1.2-6.7); Basophils % 0.6 %; Eosinophils % 1.5 %; HCT 43.6 % (36.0-46.0); HGB 13.7 g/dL (11.2-15.7); Immature Grans % 0.2 %; Lymphocytes % 29.9 %; MCH 27.3 pg (27.0-33.0); MCHC 31.4 % (32.0-36.0); MCV 87 fL (80-95); MPV 9.8 fL (8.0-11.0); Monocytes % 6.9 %; Neutrophils % 60.9 %; Platelet Count 405 10^3/uL (130-400); RBC 5.02 10^6/uL (3.93-5.22); RDW 13.8 % (11.7-14.6); RDW-SD 43.7 fL; WBC 6.66 10^3/uL (4.4-10.8)
[2024-11-07 16:49] LABS: Calculated LDL 165 mg/dL (<100); Cholesterol 240 mg/dL (<200); HDL Cholesterol 53 mg/dL (40-60); Triglyceride 113 mg/dL (<150)
[2024-11-07 17:49] LABS: Iron 42 ug/dL (50-170); Total Iron Binding Capacity 338 ug/dL (250-450); Transferrin Sat 12 % (15-50)
[2024-11-08 18:52] LABS: Hepatitis C Ab w Rflx HCV PCR Negative (Negative)
== END 2024-11-07 16:01 | disposition home or self-care (01) ==
LOC: NCHCN 16:00
PROVIDERS: Visit Provider Family Medicine
DX: D50.9 Iron deficiency anemia, unspecified (principal); Z13.220 Encounter for screening for lipoid disorders; Z11.59 Encounter for screening for other viral diseases
CPT/HCPCS: 80061; 86803; 83540; 83550; 85025

== ENCOUNTER 2025-03-10 15:11 | Outpatient (REF) | payer BC, SELFPAY ==
[2025-03-10 14:52] LABS: TSH (W/Ref FT4) 2.43 uIU/mL (0.36-3.74)
[2025-03-10 14:57] LABS: Iron 51 ug/dL (50-170); Total Iron Binding Capacity 352 ug/dL (250-450); Transferrin Sat 14 % (15-50)
[2025-03-13 12:04] LABS: IgA 538 mg/dL (85-499); Interpretation (See Note); Tissue Transglutaminase IgA <4.0 CU (<20.0)
== END 2025-03-10 15:12 | disposition home or self-care (01) ==
LOC: NCHCN 15:11
PROVIDERS: PCP Family Medicine; Visit Provider Family Medicine
DX: R53.83 Other fatigue (principal); D50.9 Iron deficiency anemia, unspecified
CPT/HCPCS: 82784; 83516; 83540; 83550; 84443

== ENCOUNTER 2025-03-14 01:16 | Outpatient (CLI) | payer BC, SELFPAY ==
--- NOTE | 2025-03-14 12:26 | DI.MAMMO_ITS ---
Exam(s) MAMMO SCREENING EXAM: MAMMO SCREENING CLINICAL HISTORY: Z12.31 Screening. TECHNIQUE: Bilateral full field digital CC and MLO mammographic images were obtained with 3D tomosyn thesis and utilizing computer aided detection (CAD). COMPARISON: Prior baseline mammogram of September 2021 was reviewed. FINDINGS: There has been no significant change in the appearance and distribution of the fibroglandular tissue. No new significant right breast findings. In the left breast there is a small group of benign-appearing microcalcifications now evident. This was not present in 2020. There are no new spiculated masses nor new malignant appearing microcalcification groups. There is no significant architectural distortion nor skin thickening-retraction. IMPRESSION: Benign findings. No radiographic evidence of malignancy. BI-RADS Category 2 - Benign Findings Breast Density - Category B - There are scattered areas of fibroglandular density. Breast density Category C or D implies that the patient has dense breast tissue. Dense breast tissue can make it harder to find cancer on a mammogram. Dense breast tissue is also associated with an incr eased risk of breast cancer. This information about the result of the mammogram report was provided to the patient to raise their awareness. Use this report when you speak with the patient about their risks for breast cancer, which includes their family history. At that time, you may recommend additional screening tests (Ultrasoun d or MRI) as these tests may add significant information. A negative radiographic report should not delay biopsy if a dominant or clinically suspicious mass is present. Up to ten percent of cancers are not identified on mammography. A negative report may reinforce clinical impression. Adenosis and dense breasts may obscure an underlying neoplasm. False positive reports average 6 to 10%. Patient will receive a letter notifying them of these results.
== END 2025-03-14 01:36 ==
LOC: DI 01:16
PROVIDERS: PCP Family Medicine; Visit Provider Family Medicine
DX: Z12.31 Encounter for screening mammogram for malignant neoplasm of breast (principal); R92.323 Mammographic fibroglandular density, bilateral breasts; D24.2 Benign neoplasm of left breast
CPT/HCPCS: 77063; 77067

== ENCOUNTER 2025-04-18 02:19 | Outpatient (CLI) | payer BC, SELFPAY ==
--- NOTE | 2025-04-18 | DI.MRI_ITS ---
Exam(s) MR BRAIN WO EXAM: MR BRAIN WO CLINICAL HISTORY: INTRACTABLE CHRNOIC MIGRAINE W AURA AND WO STATUS MIGRAINOSUS G43.E19 TECHNIQUE: Multiplanar multisequence MRI of the brain was performed. COMPARISON: No exams were available for comparison FINDINGS: CEREBRAL PARENCHYMA: There is no evidence of intracranial hemorrhage, mass effect, or shift of midline structures. There are no extra-axial fluid collections. Ventricles are not enlarged or shifted. There is no evidence of cerebellar tonsillar ectopia. There is a peripheral focus of signal abnormality in the posterior superior aspect of the right cerebellar hemisphere measuring 5 x 6 mm, not associated with hemorrhage, surrounding edema, nor restricted diffusion. No other cerebellar findings. There is no signal abnormality evident in the gem, midb rain, and thalami. In the left supra ventricular white matter there is a single this nonspecific 2 mm focus of FLAIR bright signal abnormality. On the right side there is a 7 x 5 mm focus of signal abnormality in the caudate nucleus exhibiting T1 hypointensity and T2 hyperintensity and with no evidence of restricted diffusion to suggest acute or subacute ischemic event at this level. There are no other white matter findings. Corpus callosum appears unremarkable and there is no evidence of obvious demyelinating disease pattern PITUITARY GLAND: No mass nor parasellar abnormality. No obvious abnormality in the cavernous sinuses. FLOW VOIDS: The expected flow void are noted. No evidence of obvious aneurysm nor obvious vascular malformation. PARANASAL SINUSES: The visualized paranasal sinuses appear unremarkable. No obvious finding small focus of fluid signal is noted in left mastoid air cells. Right mastoid air cells are clear. ORBITS: No obvious findings. IMPRESSION: There is a nonspecific 7 x 5 mm focus of signal abnormality in the right caudate nucleus adjacent to the right lateral ventricle, not associated with hemorrhage, surrounding edema, nor restricted diffusion. In the posterior superior aspect of the right cerebellar hemisphere there is a 5 x 6 mm focus of nonspecific signal abnormality, also not associated with hemorrhage, surrounding edema, nor restricted diffusion. If clinically indicated further MRI imaging with contrast infusion can be performed. The above findings do not constitute a pattern consistent with obvious demyelinating disease. There appears to be a small amount of fluid in the left mastoid air cells. DATA REPOSITORY:
== END 2025-04-18 02:39 ==
LOC: DI 02:19
PROVIDERS: PCP Family Medicine; Visit Provider Family Medicine
DX: G43.E19 Chronic migraine with aura, intractable, without status migrainosus (principal)
CPT/HCPCS: 70551

== ENCOUNTER 2025-05-05 17:32 | Outpatient (REF) | payer BC, SELFPAY ==
--- NOTE | 2025-05-05 11:15 | PAPFT_PTH ---
PATIENT: Lyndsey Mcclure LOC: [facility] U#:[id number] AGE/SX: 44/F ROOM: RE05/05/[address]: Estefani Thompson : 1980 BED: DIS: 05/05/2025 SPEC #: [id number] RECD: 05/05/25 17:40 STATUS: AVA REDora #: [id number] SHASTA: 05/05/25 11:[address]: Estefani Thompson DEPT: [facility] Cytology RECD BY: Opal Fay Tissues: 1 - CX/ENDOCX FOR PAP SMEARS Procedures: PAP THIN PREP/UVM Screening HPV DNA PROBE Comments: [id number] (HPV 16 & 18/45)
== END 2025-05-05 17:33 | disposition home or self-care (01) ==
LOC: NCHCN 17:32
PROVIDERS: PCP Family Medicine; Visit Provider Family Medicine
DX: Z12.4 Encounter for screening for malignant neoplasm of cervix (principal)
CPT/HCPCS: 88142; 87624

== ENCOUNTER 2025-09-06 08:45 | Day surgery (SDC) | payer BC, SELFPAY ==
[2025-09-06 09:20] VITALS: BP 114/82; PULSE 68; RESP 16; TEMP 36.4; O2SAT 100
[2025-09-06] MEDS: Lactated Ringers 1,000 ML 80 ML IV (09:35)
--- NOTE | 2025-09-06 09:43 | W.ANESPRE ---
General Info Date of Service Date Performed: 09/06/25 Height: 5 ft 5 in Weight: 105.5 kg Body Mass Index (BMI): 38.7 Surgical Procedure: Operation Date: 09/06/25 10:35 Proposed Procedure Side Surgeon p Colonoscopy/Gastroscopy Gabi Russell MD Meds Allergies and Home Medications Allergies Allergy/AdvReac Type Severity Reaction Status Date / Time Penicillins Allergy Intermediate Hives Verified 09/06/25 09:13 aripiprazole (From [facility]) AdvReac Hyperactivi Verified 09/06/25 09:13 ty Home Medication ?Medication ?Instructions ?Recorded omeprazole 20 mg tablet,delayed 20 mg PO DAILY 12/24/13 release cholecalciferol (vitamin D3) 50 2,000 unit PO DAILY 01/12/19 mcg (2,000 unit) tablet multivitamin 1 tab PO DAILY 01/12/19 vitamin B complex (B Complex 1 1 tab PO DAILY 01/12/19 tablet) calcium 500 mg (as 1 tab PO BID 02/14/19 carbonate)-vitamin D3 10 mcg (400 unit) tablet naproxen 250 mg tablet 250 mg PO BID PRN pain #30 tabs 07/26/20 hydroxyzine HCl 50 mg tablet 50 mg PO TID PRN PRN 08/20/20 propranolol 120 mg 120 mg PO DAILY 06/04/21 capsule,extended release 24 hr clonazepam 0.5 mg tablet 0.5 - 1 mg PO HS PRN 06/26/23 magnesium oxide 1,500 mg PO DAILY 05/26/24 rimegepant 75 mg disintegrating 75 mg PO ONCE PRN 05/26/24 tablet (Nurtec ODT) rizatriptan 10 mg tablet 10 mg PO .COMPLEX PRN migraine 05/26/24 headache #14 tabs galcanezumab-gnlm 120 mg/mL 120 mg subcut ONCE #1 mL 06/02/24 subcutaneous pen injector (Emgality Pen) Held on 09/05/25. Instructions: Pt Stopped/Never Started eszopiclone 3 mg tablet (Lunesta) 3 mg PO QHS 06/29/25 tirzepatide (weight loss) 5 mg/0.5 5 mg subcut QWEEK 06/29/25 mL subcutaneous pen injector (Zepbound) ziprasidone HCl 80 mg capsule 180 mg PO BID 06/29/25 fluoxetine 20 mg capsule (Prozac) 80 mg PO DAILY 08/17/25 Lactobacillus acidophilus 10 100 mmu cells PO DAILY 09/05/25 billion cell capsule (DermacinRx Bacillex) Current Visit Medications: Current Medications Generic Name Dose Route Start Last Admin Trade Name Freq PRN Reason Stop Dose Admin Ringer's Solution 1,000 mls @ 80 mls/hr 09/06/25 06:00 09/06/25 09:35 IV 09/06/25 23:59 80 mls/hr INFUSION FREDERICK Administration Sodium Chloride 0 ml 09/06/25 06:00 Normal Saline Flush 10 Ml Syr IV 09/06/25 23:59 PRN PRN Sodium Chloride 0 ml 09/06/25 06:00 Normal Saline 10 Ml Vial IJ 09/06/25 23:59 DIRECTED PRN Sterile Water 0 ml 09/06/25 06:00 Water,Injection,Sterile 10 Ml Vial IJ 09/06/25 23:59 DIRECTED PRN PFSH Active Problems Active Problems: Problem Status Onset Code Altered bowel function Acute R19.8 Iron deficiency anemia Acute D50.9 Headache, migraine Chronic G43.909 Sleep apnea Acute G47.30 Chest pain Acute R07.9 Epigastric abdominal pain Acute R10.13 Postop check Acute Z09 Chronic migraine Acute G43.709 Abnormal auditory perception Acute H93.299 Hypertension Chronic I10 Gastroesophageal reflux disease without esophagitis Acute K21.9 Xanthoma of eyelid Acute E75.5 Cholelithiasis Acute K80.20 Bipolar disorder Acute F31.9 Headache, chronic migraine without aura Acute G43.709 TMJ (temporomandibular joint syndrome) Acute M26.609 Medical History Medical History Thrombophlebitis History of meningitis Depression MAYKEL (obstructive sleep apnea) Onychomycosis Dyshidrotic eczema Fatigue Obesity Menorrhagia Acne Eczema Nausea & vomiting Chronic GERD Low back pain Coccydynia Hypotension Irregular periods Surgical History Surgical History History of delivery 2003 S/P laparoscopic cholecystectomy (~08/2019) Hx of bariatric surgery 01/2018 H/O tubal ligation Tobacco Smoking/Tobacco Use Status: Former Tobacco Use Alcohol Alcohol Intake: former Substance Use Substance use: Daily Substance use type: marijuana Details: pt. vaping, does not contain nicotine. Marijuana: vaping t-2 Prental History History 2 Para 2 Hx # Term Pregnancies 2 Multiple births Hx # Pregnancies Ectopic pregnancies AB induced Hx Number of Living Children 2 AB spontaneous Past Pregnancies Del. Date GA/Weeks # Preg Succ Route Wgt Sex Labor Lgth Anesthesia Location [facility] 04/19/01 40 Yes vaginal 4592.623 g Female [place], [place] 06/10/04 38 Yes 4082.331 g Male [place], [place] Vital Signs and Lab Results Vital Signs Most Recent Vital Signs in EMR: Most Recent Vital Signs Temp Pulse Resp BP Pulse Ox 36.4 C L 68 16 114/82 100 09/06/25 09:20 09/06/25 09:20 09/06/25 09:20 09/06/25 09:20 09/06/25 09:20 Point of Care Results Point of Care Results: POC- Test(urine) Negative 09/06/25 09:19 Imaging and Studies Imaging and Studies Study information below may be from another EMR and interpreted by another provider. Please see original notes in EMR for more complete details. Echocardiogram Summary: 06/2023:Conclusion Mild concentric left ventricular hypertrophy. Ejection fraction is 65%. Wall motion is normal Normal right ventricular size and systolic function Both atria are normal in size There is no structural or hemodynamically significant valvular disease Estimated right ventricular systolic pressure is 32 mmHg Mildly dilated ascending aorta 3.53 cm Anesthesia Assessment and Plan Anesthesia History Personal History: PONV Family History: Other Exercise Tolerance Exercise Tolerance: Metabolic Equivalents>4 Pertinent Negatives Pertinent Negatives: No Symptoms of GERD Cardiac & Pulmonary Exam Cardiac Exam: Normal S1/S2 Heart Sounds Pulmonary Exam: Clear Bilateral Breath Sounds Implantable Cardiac Device Does patient have a Pacemaker or an ICD?: No Airway Exam Known Difficult Airway: No Mallampati Class: 1 Mouth Opening: Normal (> 3cm) Thyromental Distance: Greater than 3 cm Neck Range of Motion: Full ROM Neck Circumference: Normal Teeth Condition: Normal Dentition ASA Classification ASA Score: ASA 2 Emergency Case?: No NPO Status NPO Status: NPO Clears >2 hours, Solids >8 hours Status Status: Negative HCG Anesthesia Plan Resuscitation Status: Full Code Anesthesia Technique: General Anesthesia Airway Planned: Natural Airway Monitors Used: Standard Monitors
[2025-09-06 09:52] VITALS: BMI 38.7
--- NOTE | 2025-09-06 10:55 | BOWEL_PTH ---
PATIENT: Lyndsey Mcclure LOC: [facility] U#:[id number] AGE/SX: 44/F ROOM: RE09/06/[address]: Gabi Russell : 1980 BED: DIS: 09/06/2025 SPEC #: [id number] RECD: 09/06/25 12:29 STATUS: AVA RE #: [id number] SHASTA: 09/06/25 10:[address]: Gabi Russell DEPT: Surgical Specimen RECD BY: Opal Fay ENTERED: 09/06/25 12:31 SP TYPE: Bowel OTHR DR: Estefani Thompson Tissues: 1 - BIOPSY BOWEL 2 - STOMACH BIOPSY 3 - ESOPHAGUS BIOPSY 4 - BIOPSY BOWEL Procedures: GROSS AND MICRO LEVEL 4 Comments: [id number]
[2025-09-06 11:25] VITALS: BP 120/87; PULSE 78; RESP 16; TEMP 36.1; O2SAT 96
--- NOTE | 2025-09-06 11:27 | W.PM.DSUDISC ---
Date of service: 09/06/25 Discharge Plan Disposition Patient Disposition: Home Condition: Good Discharge Details Reason For Visit: Dysphagia, Screening colonoscopy Attending Provider: Gabi Russell Primary Care Provider: Estefani Thompson Recommendations for Follow Up Recommended tests to be ordered by follow up provider: Follow up pathology results Home Meds and New Rx's Prescriptions: Continued calcium carbonate-vitamin D3 500 mg(1,250mg) -400 unit tablet 1 tab PO BID propranolol 120 mg capsule,extended release 24hr 120 mg PO DAILY multivitamin tablet 1 tab PO DAILY cholecalciferol (vitamin D3) 2,000 unit tablet 2,000 unit PO DAILY vitamin B complex [B Complex 1] tablet 1 tab PO DAILY hydroxyzine HCl 50 mg tablet 50 mg PO TID PRN PRN Nurtec ODT 75 mg tablet,disintegrating 75 mg PO ONCE PRN Patient Comments: took a single dose she found today Rx Instructions: as a single dose rizatriptan 10 mg tablet 10 mg PO .COMPLEX PRN (Reason: migraine headache) Qty: 14 3RF Rx Instructions: Take as needed for migraines. You can repeat after 2 hours but then no more than 2 doses in 24 hours. eszopiclone [Lunesta] 3 mg tablet 3 mg PO QHS ziprasidone HCl 80 mg capsule 180 mg PO BID Rx Instructions: give with food (meal/snack) Zepbound 5 mg/0.5 mL pen injector 5 mg subcut QWEEK naproxen 250 mg tablet 250 mg PO BID PRN (Reason: pain) Qty: 30 3RF Rx Instructions: Take as needed for headaches. No more than 2-3 times per week. magnesium oxide 500 mg magnesium tablet 1,500 mg PO DAILY Emgality Pen 120 mg/mL pen injector 120 mg subcut ONCE Qty: 1 11RF Patient Comments: last taken A YEAR AGO fluoxetine [Prozac] 20 mg capsule 80 mg PO DAILY omeprazole 20 MG tablet,delayed release (DR/EC) 20 mg PO DAILY clonazepam 0.5 mg tablet 0.5 - 1 mg PO HS PRN Patient Comments: TAKE 1 TO 2 TABLETS BY MOUTH ONCE DAILY AT BEDTIME DermacinRx Bacillex 10 billion cell capsule 100 mmu cells PO DAILY Discharge Instructions Instructions: Colon Polypectomy Additional Instructions: Your procedures went well today. For your upper endoscopy you did have some inflammation of the stomach and evidence of reflux changes. Some biopsies were performed and we will contact you once the results are available. For your colonoscopy you had one small polyp which was removed and will be sent to pathology. We will be in touch once these results return as well. Please contact the office if you have any questions or concerns. 1. If tolerated, consume a soft, low fiber diet for 1-2 days. 2[address] Do not drive, drink alcohol, operate machinery, make critical decisions, or do activities that require coordination or balance for 24 hours. 3. Because air was put into your colon during the procedure, expelling air from your rectum (passing gas or farting) is normal. 4. You may not have a bowel movement for 1-3 days because of the colonoscopy prep. This is normal. 5. Go directly to the emergency room if you notice any of the following: Develop chills (warm to touch), or if you have a thermometer and your temperature is above 101 Difficulty breathing or difficultly swallowing Persistent vomiting Severe abdominal pain, other than gas cramps Severe chest pain Black, tarry stools Any bleeding ? exceeding one tablespoon 6. Call your physician if the site where your intravenous was started becomes red, swollen, painful, and warm to touch. 7. Your physician has reviewed your pre-procedure medications. Please continue to take those medications as previously ordered. You will be given specific information/education regarding any changes to your medications before leaving. Stand Alone Forms: Portal Information Activity:: Activity as Tolerated Diet:: As Tolerated Discharge Orders Discharge Orders: Discharge Order (Routine); Ordered 09/06/25 Ordered By: Gabi Russell
--- NOTE | 2025-09-06 11:32 | COLE_ITS ---
Date of service: 09/06/25 Time of Service: 11:32 Colonoscopy Report Date of procedure: 09/06/25 Pre-op diagnosis general: Screening colonoscopy Post-op diagnosis procedure note: other (Colon polyp ) Procedure: Colonoscopy with polypectomy Surgeon: Gabi Russell Anesthesia Type: General:No Airway Estimated blood loss (mL): 1 Pathology: other (Polyp at 20cm ) Complications: None Disposition: PACU Indications: Patient is a 44 yo female who presents for her first screening colonoscopy. She denies any recent changes in her bowel habits or blood in her stool. Prep: Miralax/Dulcolax Procedure Start Time: 10:56 Procedure End Time: 11:18 Retraction Time: 11 Findings: Small colon polyp at 20cm removed and sent to pathology. Otherwise normal colonoscopy. Procedure Description: The patient was brought to the endoscopy suite and placed in the left lateral decubitus position. After induction of IV sedation, a digital rectal exam was performed.. Digital exam was normal. The colonoscope was then passed to the cecum without difficulty. Cecal intubation was confirmed by the identification of the appendiceal orifice and the ileocecal valve. Upon withdrawing the colonoscope, all mucosal surfaces were inspected. The prep was noted to be adequate. At 20cm, there was a small polyp, which was removed using cold forceps in its entirety. Specimen was retrieved for pathological analysis. There was no other evidence of mucosal abnormality, polyp or cancer. Retroflexion in the rectum was unremarkable.The patient tolerated the procedure well with no complications. Postoperatively, the patient was transferred to the recovery room in stable condition. [place] Bowel Prep [place] Bowel Prep Right Colon: 3 Left Colon: 3 Transverse Colon: 3 Total Score: 9
--- NOTE | 2025-09-06 11:35 | W.PM.ENDDOP ---
Date of service: 09/06/25 Time of Service: 11:35 Endoscopy Report DATE OF PROCEDURE: 09/06/25 PRE-OP DIAGNOSIS: Dysphagia, s/p sleeve gastrectomy POST-OP DIAGNOSIS: other (Gastritis, irregular GE junction ) PROCEDURE: Upper endoscopy with biopsy SURGEON: Gabi Russell ANESTHESIA TYPE: General:No Airway ESTIMATED BLOOD LOSS: 1 PATHOLOGY: other (Duodenum, Antrum, GE junction biopsy ) COMPLICATIONS: None DISPOSITION: PACU INDICATIONS: Patient is a 44 yo female who presented with dysphagia. She has a history of a sleeve gastrectomy. FINDINGS: Evidence of prior sleeve gastrectomy. Diffuse gastritis. Irregular GE junction. PROCEDURE DESCRIPTION: After adequate sedation, the upper endoscope was inserted and advanced in the duodenum under direct visualization. The scope was withdrawn and the mucosa inspected. The duodenum appeared normal and a cold forcep biopsy was obtained. The stomach had evidence of gastritis. ?The antrum area was biopsied and also checked for H. pylori.? Retroflexion view in the stomach was normal. At the lower esophagus Z line area, this was inspected and noted to be slightly irregular. No evidence of strictures. A cold forcep biopsy of the GE junction was performed. Otherwise, the esophagus was normal. The scope was completely withdrawn from the patient. The patient tolerated the procedure well with no immediate complications.
[2025-09-06 11:52] VITALS: BP 104/71; PULSE 57; RESP 15; TEMP 36; O2SAT 97
--- NOTE | 2025-09-06 11:53 | W.ANESPOSTOP ---
Postoperative Evaluation Date, Time and Location Date Performed: 09/06/25 Time Performed: 11:35 Patient Location: Day Surgery Unit Vital Signs Most Recent Imported Vital Signs: Most Recent Vital Signs Temp Pulse Resp BP Pulse Ox 36.1 C L 78 16 120/87 96 09/06/25 11:25 09/06/25 11:09/06/25 11:09/06/25 11:09/06/25 11:25 Pain Score Most Recent Pain Score: Most Recent Pain Score Pain Level 0 09/06/25 11:25 Assessment Mental Status: Awake (Alert & Oriented to Patient Baseline) Airway and Respiratory Function: Patent airway with normal (patient baseline) respiratory exam Cardiovascular Function: Hemodynamically Stable Hydration Status: Adequately Hydrated Nausea & Vomiting: No Nausea or Vomiting Pain: Pt. Denies Any Pain Peripheral Nerve Block: Patient did not receive a nerve block
== END 2025-09-06 12:05 | disposition home or self-care (01) ==
PROVIDERS: PCP Family Medicine; Visit Provider Student in an Organized Health Care Education/Training Program
PROC: (CPT 45380; principal; 2025-09-06 10:30)
DX: Z12.11 Encounter for screening for malignant neoplasm of colon (principal); K63.5 Polyp of colon; R13.10 Dysphagia, unspecified; K29.70 Gastritis, unspecified, without bleeding; K31.9 Disease of stomach and duodenum, unspecified
CPT/HCPCS: 45380; 43239; 81025; 88305; J2003; J2704